=== PATIENT | female | born 1995 ===

== ENCOUNTER 2020-10-14 14:41 | Outpatient (REF) | payer SELFPAY ==
[2020-10-15 11:38] LABS: BV Int Neg Control Negative (Negative); BV Int Pos Control Positive (Positive)
[2020-10-20 15:09] LABS: CT PCR NOT DETECTED (Not Detect.); NG PCR NOT DETECTED (Not Detect.)
== END 2020-10-14 14:42 | disposition home or self-care (01) ==
LOC: HO.LAB 14:41
PROVIDERS: PCP Internal Medicine; Visit Provider Advanced Practice Midwife
DX: Z20.2 Contact with and (suspected) exposure to infections with a predominantly sexual mode of transmission (principal); E66.9 Obesity, unspecified
CPT/HCPCS: 87480; 87491; 87510; 87591; 87660; 99212

== ENCOUNTER 2020-10-14 16:25 | Outpatient (REF) | payer OTHER, SELFPAY ==
[2020-10-14 17:13] LABS: MANUAL DIFF FLAG NO
[2020-10-14 17:18] LABS: Basophils Absolute Auto 0.1 X10*3/uL (0.0-0.2); Basophils Percent Auto 0.9 % (0-2); Eosinophils Absolute Auto 0.4 X10*3/uL (0.0-0.4); Eosinophils Percent Auto 4.2 % (0-4); Hematocrit 38.3 % (37-47); Hemoglobin 12.3 g/dl (12.0-16.0); Imm Gran Abs Auto 0.02 X10*3/uL (0.00-0.03); Imm Gran Pct Auto 0.2 % (0.0-0.4); Lymphocytes Absolute Auto 3.6 X10*3/uL (1.2-4.9); Lymphocytes Percent Auto 39.4 % (20-40); Mean Corpuscular HGB Conc 32.1 g/dl (31.0-35.0); Mean Corpuscular Hemoglobin 29.4 pg (27.0-33.0); Mean Corpuscular Volume 91.6 fL (80-98); Mean Platelet Volume 9.8 fL (9.4-12.3); Monocytes Absolute Auto 0.6 X10*3/uL (0.1-1.2); Neutrophils Absolute Auto 4.4 X10*3/uL (2.0-8.3); Neutrophils Percent Auto 48.3 % (45-73); Platelet Count 327 X10*3/uL (160-400); Red Blood Count 4.18 X10*6/uL (4.20-5.50); Red Cell Distribution Width 13.3 % (11.0-16.0); White Blood Count 9.1 X10*3/uL (4.8-10.8)
[2020-10-14 18:04] LABS: Alanine Aminotransferase 12 U/L (0-31); Albumin Level 4.6 g/dL (3.5-5.0); Alkaline Phosphatase 87 U/L (39-117); Anion Gap 12 (12-20); Aspartate Amino Transferase 16 U/L (5-31); Bilirubin Total 0.3 mg/dL (0.0-1.0); Blood Urea Nitrogen 9 mg/dL (9-16); Calcium 9.3 mg/dL (8.4-10.2); Carbon Dioxide 26 mmol/L (22-29); Chloride 106 mmol/L (96-108); Cholesterol 225 mg/dL; Estimated Glomerular Filt Rate > 60; Glucose Fasting 73 mg/dL (60-99); HDL Cholesterol 42 mg/dL; LDL Cholesterol Calculated 169 mg/dl; Potassium 4.2 mmol/l (3.3-5.1); Sodium 140 mmol/L (135-145); Total Protein 7.5 g/dL (6.5-8.0); Triglycerides 73 mg/dL
[2020-10-14 18:17] LABS: TSH reflex Free T4 1.54 mIU/mL (0.32-4.0)
[2020-10-15 07:52] LABS: HBsAGNum1 0.22 S/CO (0.00-0.99); HIV AB/AG Nonreactive (Nonreactive); HIV Num 1 0.31 S/CO (0.00-0.99); Hepatitis B Surface Antigen Negative (Negative); ~HepC Num1 0.11 S/CO (0.00-0.79); ~Hepatitis C Antibody Nonreactive (Nonreactive)
[2020-10-15 09:03] LABS: Syphilis Screen Nonreactive (Nonreactive)
== END 2020-10-14 16:26 | disposition home or self-care (01) ==
LOC: HO.LAB 16:25
PROVIDERS: PCP Internal Medicine; Visit Provider Advanced Practice Midwife
DX: Z20.2 Contact with and (suspected) exposure to infections with a predominantly sexual mode of transmission (principal); E66.9 Obesity, unspecified
CPT/HCPCS: 36415; 80053; 80061; 84443; 85025; 86780; 86803; 87340; 87389

== ENCOUNTER → 2020-10-17 12:15 | Outpatient (BNVA) | payer OTHER, SELFPAY | PROVIDERS: PCP Internal Medicine; Visit Provider Advanced Practice Midwife | DX: Z76.89 Persons encountering health services in other specified circumstances (principal) ==

== ENCOUNTER 2020-11-12 15:14 | Outpatient (REF) | payer OTHER, SELFPAY | END 2020-11-12 15:15 | disposition home or self-care (01) | LOC: HO.LAB 15:14 | PROVIDERS: Visit Provider Internal Medicine | DX: Z20.828 Contact with and (suspected) exposure to other viral communicable diseases (principal) | CPT/HCPCS: C9803; U0003 ==

== ENCOUNTER 2020-11-27 10:04 | Outpatient (REF) | payer OTHER, SELFPAY | END 2020-11-27 10:05 | disposition home or self-care (01) | LOC: HO.LAB 10:04 | PROVIDERS: Visit Provider Internal Medicine | DX: Z20.822 Contact with and (suspected) exposure to COVID-19 (principal) | CPT/HCPCS: 36415; C9803; U0003 ==

== ENCOUNTER 2020-12-26 12:31 | Outpatient (REF) | payer OTHER, SELFPAY ==
[2020-12-26 16:30] LABS: MANUAL DIFF FLAG NO
[2020-12-26 16:33] LABS: Basophils Absolute Auto 0.1 X10*3/uL (0.0-0.2); Eosinophils Absolute Auto 0.2 X10*3/uL (0.0-0.4); Eosinophils Percent Auto 2.7 % (0-4); Hematocrit 41.8 % (37-47); Hemoglobin 13.6 g/dl (12.0-16.0); Imm Gran Abs Auto 0.01 X10*3/uL (0.00-0.03); Imm Gran Pct Auto 0.1 % (0.0-0.4); Lymphocytes Absolute Auto 2.8 X10*3/uL (1.2-4.9); Lymphocytes Percent Auto 36.4 % (20-40); Mean Corpuscular HGB Conc 32.5 g/dl (31.0-35.0); Mean Corpuscular Hemoglobin 29.7 pg (27.0-33.0); Mean Corpuscular Volume 91.3 fL (80-98); Mean Platelet Volume 11.1 fL (9.4-12.3); Monocytes Absolute Auto 0.5 X10*3/uL (0.1-1.2); Monocytes Percent Auto 6.6 % (2-11); Neutrophils Absolute Auto 4.1 X10*3/uL (2.0-8.3); Neutrophils Percent Auto 53.2 % (45-73); Platelet Count 363 X10*3/uL (160-400); Red Blood Count 4.58 X10*6/uL (4.20-5.50); Red Cell Distribution Width 13.4 % (11.0-16.0); White Blood Count 7.8 X10*3/uL (4.8-10.8)
[2020-12-26 17:17] LABS: Syphilis Screen Nonreactive (Nonreactive)
[2020-12-29 07:53] LABS: HIV AB/AG Nonreactive (Nonreactive); HIV Num 1 0.08 S/CO (0.00-0.99); ~Hepatitis B Surface Antibody NONREACTIVE (Nonreactive); ~Hepatitis C Antibody Nonreactive (Nonreactive)
[2020-12-31 19:52] LABS: HSV 1 IgM IFA Negative (Negative); HSV 2 IgM IFA Negative (Negative)
== END 2020-12-26 12:32 | disposition home or self-care (01) ==
LOC: HO.LAB 12:31
PROVIDERS: Internal Medicine; Absent Provider Hospitalist; PCP Internal Medicine; Visit Provider Internal Medicine
DX: Z00.00 Encounter for general adult medical examination without abnormal findings (principal); E03.9 Hypothyroidism, unspecified; Z20.828 Contact with and (suspected) exposure to other viral communicable diseases; Z20.822 Contact with and (suspected) exposure to COVID-19
CPT/HCPCS: 36415; 84443; 85025; 86695; 86696; 86706; 86780; 86803; 87389; C9803; U0003; U0005

== ENCOUNTER 2020-12-26 14:31 | Outpatient (REF) | payer OTHER, SELFPAY ==
[2020-12-26 16:08] LABS: CT PCR NOT DETECTED (Not Detect.); NG PCR NOT DETECTED (Not Detect.)
== END 2020-12-26 14:32 | disposition home or self-care (01) ==
LOC: HO.LNP 14:31
PROVIDERS: Visit Provider Hospitalist
DX: Z20.828 Contact with and (suspected) exposure to other viral communicable diseases (principal); E03.9 Hypothyroidism, unspecified
CPT/HCPCS: 87491; 87591

== ENCOUNTER 2020-12-30 08:07 | Outpatient (REF) | payer OTHER, SELFPAY | END 2020-12-30 08:08 | disposition home or self-care (01) | LOC: HO.LAB 08:07 | PROVIDERS: PCP Internal Medicine; Visit Provider Advanced Practice Midwife | DX: R30.0 Dysuria (principal); Z20.2 Contact with and (suspected) exposure to infections with a predominantly sexual mode of transmission | CPT/HCPCS: 99212 ==

== ENCOUNTER 2021-02-17 15:46 | Outpatient (REF) | payer OTHER, SELFPAY ==
[2021-02-18 09:20] LABS: SARS COV2 PCR INHOUSE NEGATIVE (Negative)
== END 2021-02-17 15:47 | disposition home or self-care (01) ==
LOC: HO.LAB 15:46
PROVIDERS: Visit Provider Internal Medicine
DX: Z20.822 Contact with and (suspected) exposure to COVID-19 (principal)
CPT/HCPCS: C9803; U0003

== ENCOUNTER 2021-03-09 14:58 | Outpatient (REF) | payer OTHER, SELFPAY ==
[2021-03-09 15:24] LABS: COVID-19 Test Negative (Negative)
== END 2021-03-09 14:59 | disposition home or self-care (01) ==
LOC: HO.LAB 14:58
PROVIDERS: Visit Provider Internal Medicine
DX: Z20.822 Contact with and (suspected) exposure to COVID-19 (principal)
CPT/HCPCS: 36415; 87635; C9803

== ENCOUNTER 2021-03-16 15:09 | Outpatient (REF) | payer OTHER, SELFPAY ==
[2021-03-16 17:19] LABS: Alanine Aminotransferase 18 U/L (0-31); Albumin Level 4.4 g/dL (3.5-5.0); Alkaline Phosphatase 62 U/L (39-117); Anion Gap 14 (12-20); Aspartate Amino Transferase 19 U/L (5-31); Bilirubin Total 0.4 mg/dL (0.0-1.0); Blood Urea Nitrogen 11 mg/dL (9-16); Calcium 9.7 mg/dL (8.4-10.2); Carbon Dioxide 24 mmol/L (22-29); Chloride 105 mmol/L (96-108); Cholesterol 240 mg/dL; Estimated Glomerular Filt Rate > 60; Glucose Fasting 114 mg/dL (60-99); HDL Cholesterol 44 mg/dL; LDL Cholesterol Calculated 148 mg/dl; Sodium 139 mmol/L (135-145); Total Protein 7.5 g/dL (6.5-8.0); Triglycerides 241 mg/dL
[2021-03-16 17:38] LABS: Thyroid Stimulating Hormone 1.09 uIU/mL (0.32-4.0)
[2021-03-17 06:11] LABS: CT PCR NOT DETECTED (Not Detect.); NG PCR NOT DETECTED (Not Detect.)
[2021-03-17 08:02] LABS: Prolactin 16.6 ng/mL
[2021-03-17 10:52] LABS: DHEA Sulfate 437 mcg/dL (18-391)
[2021-03-17 12:38] LABS: BV Int Neg Control Negative (Negative); BV Int Pos Control Positive (Positive)
[2021-03-20 22:21] LABS: Testosterone, Free 11.2 pg/mL (0.1-6.4); Testosterone, Total 51 ng/dL (2-45)
== END 2021-03-16 15:10 | disposition home or self-care (01) ==
LOC: HO.LAB 15:09
PROVIDERS: Internal Medicine; PCP Internal Medicine; Visit Provider Advanced Practice Midwife
DX: Z01.419 Encounter for gynecological examination (general) (routine) without abnormal findings (principal); R10.2 Pelvic and perineal pain; R63.5 Abnormal weight gain; N92.6 Irregular menstruation, unspecified; R30.0 Dysuria; E11.9 Type 2 diabetes mellitus without complications; Z20.2 Contact with and (suspected) exposure to infections with a predominantly sexual mode of transmission
CPT/HCPCS: 36415; 80053; 80061; 82627; 83498; 84146; 84402; 84403; 84443; 87086; 87147; 87480; 87491; 87510; 87591; 87660

== ENCOUNTER → 2021-03-20 14:21 | Outpatient (BNVA) | payer OTHER, SELFPAY | PROVIDERS: PCP Internal Medicine; Visit Provider Urology | DX: N39.0 Urinary tract infection, site not specified (principal); R31.9 Hematuria, unspecified | CPT/HCPCS: 81002; 99202 ==

== ENCOUNTER 2021-03-25 16:08 | Outpatient (REF) | payer OTHER, SELFPAY ==
--- NOTE | ~2021-03-25 | US_ITS ---
EXAMINATION: PELVIC ULTRASOUND CLINICAL INFORMATION: Irregular menstruation COMPARISON: None TECHNIQUE: Transabdominal and transvaginal pelvic ultrasound was performed. Transvaginal exam was performed for better visualization of the uterus and ovaries. FINDINGS: The uterus is anteverted and measures 7.5 x 3.3 x 3.9 cm in dimension. No focal uterine lesion is seen. Endometrial thickness is normal measuring 0.5 cm. There are nabothian cysts in the cervix. There is a small amount of fluid seen in the endocervical canal. The ovaries are normal in size. The right ovary measures 3.3 x 1.7 x 3.5 cm and the left ovary measures 2.7 x 1.5 x 2.3 cm. There are bilateral small simple ovarian cysts or follicles. There is a small amount of fluid in the pelvis. US/US pelvic and transvaginal IMPRESSION: Normal thickness endometrium.
== END 2021-03-25 16:09 | disposition home or self-care (01) ==
LOC: HO.US 16:08
PROVIDERS: Visit Provider Advanced Practice Midwife
DX: N92.6 Irregular menstruation, unspecified (principal)
CPT/HCPCS: 76830; 76856

== ENCOUNTER → 2021-04-02 11:32 | Outpatient (BNVA) | payer OTHER, SELFPAY | PROVIDERS: PCP Internal Medicine; Visit Provider Advanced Practice Midwife ==

== ENCOUNTER 2021-06-23 20:17 | Emergency (ER) | payer OTHER, SELFPAY ==
--- NOTE | ~2021-06-23 | US_ITS ---
EXAMINATION: US VENOUS ULTRASOUND WITH DOPPLER LOWER EXTREMITY, LEFT CLINICAL INFORMATION: Left thigh palpable mass. Evaluate for a deep vein thrombosis. COMPARISON: None TECHNIQUE: Ultrasound of the deep veins is performed from the hip to the calf with compression sonography and color and pulse Doppler assessment. Spectral analysis with color-flow imaging is performed. FINDINGS: There is normal venous compression and respiratory variation and augmented flow. The visualized common femoral vein, superficial femoral vein, profunda femoral vein, popliteal vein, and the trifurcation region shows no evidence of deep venous thrombosis. There is no significant popliteal fossa cyst. Within the mid/medial left thigh there is a heterogeneous area within the subcutaneous fat with areas of increased and decreased echogenicity. There is hypoechogenicity centrally. Findings are nonspecific and could represent a soft tissue contusion versus an infectious or inflammatory process. If the patient's symptoms persist, followup ultrasound in 5 days 7 days might be of value to exclude proximal propagation from a non-visualized calf vein. US/US venous duplex LE LT IMPRESSION: No DVT demonstrated in the left lower extremity. Within the mid/medial left thigh there is a heterogeneous area within the subcutaneous fat with central hypoechogenicity. Findings are nonspecific and could represent a soft tissue contusion versus an infectious or inflammatory process.
[2021-06-23 20:25] VITALS: BP 116/74; PULSE 80; RESP 20; TEMP 37.3; O2SAT 98; BMI 32.8
--- NOTE | 2021-06-23 22:31 | ED_ITS ---
HPI - General Adult General Chief complaint: Skin/Abscess/Foreign Body Stated complaint: bump leg Time Seen by Provider: 06/23/21 21:38 Source: patient Mode of arrival: ambulatory Limitations: no limitations History of Present Illness HPI narrative: Patient states pain in left inner thigh. Patient states of painful lump under skin in inner thigh. Patient denies any redness, fever, chills, ecchymosis, or any recent trauma to the area. Patient is not on any control pills. Patient denies any swelling of lower extremity or calf pain. Related Data Home Medications Medication Instructions Recorded Confirmed albuterol sulfate 90 mcg/actuation 2 puff INHALATION Q4-6H PRN 08/19/20 03/13/21 aerosol inhaler escitalopram oxalate 20 mg tablet 20 mg PO QAM 08/19/20 03/13/21 hydroxyzine HCl 10 mg tablet 10 mg PO TID 08/19/20 03/13/21 propranolol 10 mg tablet 10 mg PO BID 08/19/20 03/13/21 Previous Rx's Medication Instructions Recorded prednisone 20 mg tablet 20 mg PO .COMPLEX #18 tab 03/13/21 nitrofurantoin macrocrystal 50 mg 50 mg PO BEDTIME 90 Days #90 cap 03/20/21 capsule metronidazole 500 mg tablet 500 mg PO BID 7 Days #14 tab 04/14/21 (Flagyl) cephalexin 500 mg capsule 500 mg PO QID #28 cap 06/23/21 naproxen 500 mg tablet 500 mg PO BID PRN #20 tab 06/23/21 Allergies Allergy/AdvReac Type Severity Reaction Status Date / Time No Known Allergies Allergy Verified 06/23/21 20:29 Review of Systems Review of Systems: Yes all other systems are reviewed and are negative Constitutional: Constitutional: Reports as per HPI and Reports no additional constitutional complaints Eyes: Eyes: Reports as per HPI and Reports no additional eye complaints ENT: Reports system reviewed and no additional complaints, except as documented and Reports as per HPI Cardiovascular: Cardiovascular: Reports as per HPI Respiratory: Respiratory: Reports as per HPI and Reports no additional respiratory complaints Gastrointestinal: Gastrointestinal: Reports as per HPI and Reports no additional gastrointestinal complaints Musculoskeletal: Musculoskeletal: Reports no additional musculoskeletal complaints and Reports as per HPI Comments: Painful lump on thigh Neurologic: Reports system reviewed and no additional complaints, except as documented and Reports as per HPI Psychiatric: Psychiatric: Reports no additional psychiatric complaints and Reports as per HPI [facility] Past Medical History Medical History Depression with anxiety Mild asthma Obesity (BMI 30.0-34.9) Surgical History History of tooth extraction Family History Family History Father Cancer Seizures Mother Hypertension Kidney stones Paternal Grandmother Breast cancer Diabetes mellitus Paternal Grandfather Diabetes mellitus Maternal Aunt Hypertension Social History Social History Alcohol intake: current Alcohol intake frequency: holidays/special occasions only Advance Directives: No Advance Directives Information Provided: No Patient : No Gender identity: female Physical Exam Vital Signs: Vital Signs: Last Vital Signs Temp 99.2 F 06/23/21 20:25 Pulse 80 06/23/21 20:25 Resp 20 06/23/21 20:25 BP 116/74 06/23/21 20:25 Pulse Ox 98 06/23/21 20:25 Body Mass Index 32.8 Const: General: cooperative, healthy appearing, comfortable, no acute distress, well developed, alert and awake Orientation/consciousness: patient oriented x3 HENMT: Head: Yes normal to inspection, Yes No palpable skull fracture present, Yes normocephalic and Yes atraumatic Eyes: General: appearance normal, both eyes and all related structures Neck: Neck: Yes normal visual inspection, Yes full ROM, Yes no lymphadenopathy, Yes no meningeal signs, Yes trachea midline, Yes supple and No tender Chest: Chest palpation & inspection: normal inspection of the chest and normal palpation of entire chest wall Resp: Effort & Inspection: normal respiratory effort and able to speak in complete sentences Auscultation: clear to auscultation bilaterally Cardio: Jugular venous distension: no JVD Heart sounds: S1 normal heart sound present and S2 normal heart sound present GI: Inspection: Yes normal to inspection and No abdominal wall ecchymosis Palpation (GI): Soft to palpation, not firm, nontender, no guarding and not rigid : General: No CVA tenderness and Yes no CVA tenderness Back/Spine/Pelvis: Back: no CVA tenderness, No CVA tenderness and No back tenderness Skin: General skin exam: no rashes or lesions noted and elasticity normal Neuro: General: patient oriented x3, gait normal, tone normal, no meningeal signs and CN's II-XI intact bilaterally Cranial nerves: Yes CN's II-XII intact bilaterally Extrem: General: Yes normal to inspection and Yes full ROM Knee images: 1. Positive for area of tenderness on palpation. Negative for any fluctuance, erythema, pus discharge, or foul odor. Negative for ecchymosis or crepitus. Motor/neuro/vascular exam intact. Psych: Appearance: grossly normal, well kempt and not disheveled Course Course Course Narrative: Bedside ultrasound does not show any collection of pus on that area of skin. Area of skin negative for any erythema to indicate cellulitis. Will send patient for official ultrasound to make sure there is no DVT. Reevaluation(s) Reevaluation #1: Ultrasound negative for blood clot. Ultrasound states area of pain may be contusion versus inflammatory/infectious process. This may be early abscess although no erythema. Not suspect any fracture due to no ecchymosis in the area to indicate trauma. Will discharge with Keflex. Time: 22:46 Medical Decision Making MDM Narrative Medical decision making narrative: Painful lump Discharge Plan Discharge Clinical Impression: Abscess of skin or subcutaneous tissue Patient Disposition: Home, Self-Care Instructions: Abscess (ED) Additional Instructions: Recommend warm compress 4 times a day for 15 minutes on area of pain. You will be discharged with antibiotics. Return to ED for worsening pain, redness, swelling, calf pain, leg swelling, red streaks, fever, chills, chest pain, shortness of breath, or any other concerning symptoms. Please follow-up with PCP Prescriptions: New cephalexin 500 mg capsule 500 mg PO QID Qty: 28 RF: 0 naproxen 500 mg tablet 500 mg PO BID PRN (Reason: pain) Qty: 20 RF: 0 No Action metronidazole [Flagyl] 500 mg tablet 500 mg PO BID 7 Days Qty: 14 RF: 0 escitalopram oxalate 20 mg tablet 20 mg PO QAM RF: 0 hydroxyzine HCl 10 mg tablet 10 mg PO TID RF: 0 propranolol 10 mg tablet 10 mg PO BID RF: 0 albuterol sulfate 90 mcg/actuation HFA aerosol inhaler 2 puff inhalation Q4-6H PRNRF: 0 prednisone 20 mg tablet 20 mg PO .COMPLEX Qty: 18 RF: 0 nitrofurantoin macrocrystal 50 mg capsule 50 mg PO BEDTIME 90 Days Qty: 90 RF: 0 Print Language: Mohawk
== END 2021-06-23 23:11 | disposition home or self-care (01) ==
PROVIDERS: Emergency Provider Internal Medicine
DX: L02.416 Cutaneous abscess of left lower limb (principal); M79.652 Pain in left thigh
CPT/HCPCS: 93971; 99283; 99284

== ENCOUNTER → 2021-06-25 10:07 | Outpatient (BNVA) | payer OTHER, SELFPAY | PROVIDERS: PCP Internal Medicine; Visit Provider Internal Medicine | DX: R79.89 Other specified abnormal findings of blood chemistry (principal); E55.9 Vitamin D deficiency, unspecified | CPT/HCPCS: 99202 ==

== ENCOUNTER 2021-07-06 10:53 | Outpatient (REF) | payer OTHER, SELFPAY ==
[2021-07-06 12:23] LABS: Glucose Fasting 88 mg/dL (60-99)
[2021-07-06 12:33] LABS: Alanine Aminotransferase 19 U/L (0-31); Albumin Level 4.3 g/dL (3.5-5.0); Alkaline Phosphatase 56 U/L (39-117); Anion Gap 10 (12-20); Aspartate Amino Transferase 20 U/L (5-31); Bilirubin Total 0.3 mg/dL (0.0-1.0); Blood Urea Nitrogen 6 mg/dL (9-16); Calcium 8.9 mg/dL (8.4-10.2); Carbon Dioxide 25 mmol/L (22-29); Chloride 106 mmol/L (96-108); Cholesterol 184 mg/dL; Estimated Glomerular Filt Rate > 60; Glucose Random 88 mg/dL (60-115); HDL Cholesterol 40 mg/dL; LDL Cholesterol Calculated 132 mg/dl; Potassium 4.4 mmol/L (3.3-5.1); Sodium 137 mmol/L (135-145); Total Protein 7.2 g/dL (6.5-8.0); Triglycerides 64 mg/dL
[2021-07-06 12:44] LABS: Free T4 (Free Thyroxine) 0.82 ng/dL (0.71-1.85); HCG Quantitative < 2 mIU/mL; Vitamin D 25-OH Total 19.4 ng/mL (>30)
[2021-07-06 14:28] LABS: Estimated Average Glucose 105 mg/dL; Hemoglobin A1c % 5.3 %
[2021-07-06 14:32] LABS: Glucose 2 Hour 96 mg/dL
[2021-07-06 14:32] LABS: Glucose 1 Hour 101 mg/dL
[2021-07-08 06:06] LABS: LDL Cholesterol Direct 141 mg/dL (<100)
[2021-07-08 06:11] LABS: DHEA Sulfate 354 mcg/dL (18-391); Sex Hormone Binding Globulin 18 nmol/L (17-124)
[2021-07-08 20:41] LABS: Follicle Stimulating Hormone 3.9 mIU/mL; Lutenizing Hormone 1.9 mIU/mL; Prolactin 21.7 ng/mL
[2021-07-09 17:36] LABS: Estradiol Ultra Sensitive 75 pg/mL
[2021-07-10 00:02] LABS: Androstenedione 141 ng/dL
[2021-07-10 21:07] LABS: Testosterone, Free 7.5 pg/mL (0.1-6.4); Testosterone, Total 39 ng/dL (2-45)
[2021-07-16 20:51] LABS: Estradiol Free 2.15 pg/mL; Estradiol, Ultrasensitive 71 pg/mL
== END 2021-07-06 10:54 | disposition home or self-care (01) ==
LOC: HO.LAB 10:53
PROVIDERS: PCP Internal Medicine; Visit Provider Internal Medicine
DX: R79.89 Other specified abnormal findings of blood chemistry (principal); E55.9 Vitamin D deficiency, unspecified
CPT/HCPCS: 36415; 80053; 80061; 82157; 82306; 82627; 82670; 82681; 83001; 83002; 83036; 83498; 83721; 84146; 84270; 84402; 84403; 84439; 84443; 84702

== ENCOUNTER 2021-07-10 07:16 | Outpatient (REF) | payer OTHER, SELFPAY ==
[2021-07-13 22:37] LABS: Adrenocorticotropic Hormone 26 pg/mL (6-50)
== END 2021-07-10 07:17 | disposition home or self-care (01) ==
LOC: HO.LAB 07:16
PROVIDERS: PCP Internal Medicine; Visit Provider Internal Medicine
DX: R79.89 Other specified abnormal findings of blood chemistry (principal)
CPT/HCPCS: 36415; 82024; 82533

== ENCOUNTER 2021-07-16 15:22 | Outpatient (REF) | payer OTHER, SELFPAY ==
--- NOTE | ~2021-07-16 | CT_ITS ---
EXAMINATION: CT ABDOMEN WITHOUT AND WITH CONTRAST CLINICAL INFORMATION: Abnormal liver chemistries findings COMPARISON: None TECHNIQUE: Contiguous axial thin section helical images of the abdomen were performed before and after the administration of oral contrast and 85 mL of Omnipaque 350 intravenous contrast. The data set was reformatted in the coronal and sagittal planes and reviewed on an independent workstation. This CT examination was performed using dose optimization techniques as appropriate, variously including the following: *Automated exposure control *Adjustment of mA and/or kV according to patient size (this includes techniques or standardized protocols for targeted exams where dose is matched to indication/reason for exam; i.e. extremities or head) *Use of iterative reconstruction technique DLP: 1556 mGy-cm FINDINGS: LUNG BASES: Unremarkable LIVER, GALLBLADDER, AND BILIARY TREE: Unremarkable PANCREAS: Unremarkable SPLEEN: Unremarkable ADRENAL GLANDS AND KIDNEYS: The adrenal glands are normal. No adrenal nodule is seen. There is a 1.5 cm cyst in the lower pole of the left kidney. The kidneys are otherwise unremarkable. BOWEL LOOPS: Unremarkable LYMPH NODES: Unremarkable VASCULAR: Unremarkable. Abdominal wall: There is diastasis of the rectus muscles and small umbilical hernia containing fat. BONES: Unremarkable CT/CT abdomen wo/w con IMPRESSION: Normal-appearing adrenal glands. No nodule seen. Small left renal cyst.
[2021-07-16] MEDS: iohexoL 350 MG/ML 100 ML INFUS..BTL IV (16:07)
== END 2021-07-16 15:23 | disposition home or self-care (01) ==
LOC: HO.CT 15:22
PROVIDERS: PCP Internal Medicine; Visit Provider Internal Medicine
DX: R79.89 Other specified abnormal findings of blood chemistry (principal)
CPT/HCPCS: 74170; Q9967

== ENCOUNTER 2021-07-21 07:38 | Outpatient (REF) | payer OTHER, SELFPAY ==
[2021-07-23 17:07] LABS: Adrenocorticotropic Hormone 9 pg/mL (6-50)
[2021-07-28 22:42] LABS: Dexamethasone 356 ng/dL
== END 2021-07-21 07:39 | disposition home or self-care (01) ==
LOC: HO.LAB 07:38
PROVIDERS: PCP Internal Medicine; Visit Provider Internal Medicine
DX: R79.89 Other specified abnormal findings of blood chemistry (principal)
CPT/HCPCS: 36415; 80299; 82024; 82533

== ENCOUNTER 2021-07-29 19:48 | Emergency (ER) | payer OTHER, SELFPAY ==
[2021-07-29 21:44] VITALS: BP 118/82; PULSE 64; RESP 18; TEMP 36.7; O2SAT 99; BMI 32.5
--- NOTE | 2021-07-29 22:57 | ED.FALL ---
HPI - Fall General Chief Complaint: Fall Stated Complaint: fall Time Seen by Provider: 07/29/21 22:15 Source: patient Mode of arrival: ambulatory Limitations: no limitations History of Present Illness HPI Narrative: 25 y/o female presenting for evaluation of headache, right sided neck pain and left shoulder pain after she slipped on oil and fell onto hardwood floor yesterday. She fell back onto her left side and hit her head. No LOC. Not on anticoagulation. 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 She had muscle pains in her right side of her neck, worse with movement and lifting. She had a hard time focusing and a frontal headache. She has not taken any medications for the pain. No weakness, numbness, tingling, N/V, vision changes. MD complaint: fall Onset (ago): day(s) (1) Fall from: standing Fall witnessed: no Place fall occurred: home Loss of consciousness: none Prolonged down time: no Symptoms prior to fall: none Context: tripped/slipped Location of injury: head and neck Location of injury - extremities: left: shoulder Severity: moderate Severity scale (1-10): 5 Quality: aching and spasming Associated symptoms (after fall): headache and neck pain Related Data Home Medications Medication Instructions Recorded Confirmed escitalopram oxalate 20 mg tablet 20 mg PO QAM 08/19/20 06/25/21 hydroxyzine HCl 10 mg tablet 10 mg PO TID 08/19/20 06/25/21 propranolol 10 mg tablet 10 mg PO BID 08/19/20 06/25/21 Previous Rx's Medication Instructions Recorded nitrofurantoin macrocrystal 50 mg 50 mg PO BEDTIME 90 Days #90 cap 03/20/21 capsule dexamethasone 1 mg tablet 1 mg PO DAILY #1 tab 07/15/21 cyclobenzaprine 10 mg tablet 10 mg PO TID PRN #10 tab 07/29/21 ibuprofen 600 mg tablet 600 mg PO Q8H PRN #20 tab 07/29/21 lidocaine 5 % topical patch 1 patch TOPICAL DAILY #15 ea 07/29/21 (Lidoderm) Allergies Allergy/AdvReac Type Severity Reaction Status Date / Time No Known Allergies Allergy Verified 07/29/21 21:44 Review of Systems Review of Systems: Constitutional: No Fever, No Chills ENT/Mouth: No sore throat, No Rhinorrhea, No Swallowing Difficulty Cardiovascular: No Chest Pain, No SOB Respiratory: No Cough, No Sputum Gastrointestinal: No Nausea, No Vomiting, No Diarrhea, No abdominal Pain Genitourinary: No Hematuria Musculoskeletal: No joint pain, + Myalgias Skin: No Skin Lesions, No rash Neuro: No Weakness, No Numbness, No Dizziness, + Headache Heme/Lymph: No Bruising PMFSH Past Medical History Medical History (Updated 07/29/21 @ 22:59 by FRANSISCO Connelly) Depression with anxiety Mild asthma Obesity (BMI 30.0-34.9) Renal mass, left Vitamin D deficiency Surgical History History of tooth extraction Family History Family History Father Cancer Seizures Mother Hypertension Kidney stones Paternal Grandmother Breast cancer Diabetes mellitus Paternal Grandfather Diabetes mellitus Maternal Aunt Hypertension Social History Social History Alcohol intake: current Alcohol intake frequency: holidays/special occasions only Patient Tobacco Use Status: Never used Tobacco Advance Directives: No Advance Directives Information Provided: No Patient : No Gender identity: Female Physical Exam Vital Signs: Vital Signs: Last Vital Signs Temp 98.1 F 07/29/21 21:44 Pulse 64 07/29/21 21:44 Resp 18 07/29/21 21:44 BP 118/82 07/29/21 21:44 Pulse Ox 99 07/29/21 21:44 Body Mass Index 32.5 Appearance: Alert. Oriented X3. No acute distress. Head: normocephalic, atraumatic, no palpable skull fracture Eyes: Pupils equal, round and reactive to light. EOMI, no nystagmus ENT: Pharynx normal. No dental trauma. Neck: Normal inspection. Neck supple. No cervical spinal tenderness. right sided soft tissue tenderness with palpable spasm. CVS: Normal heart rate and rhythm. Pulses normal. Respiratory: No respiratory distress. Breath sounds normal. Abdomen: Soft and nontender. +BS x4 Skin: Skin warm and dry. Normal skin color. Normal skin turgor. No rashes. Extremities: No lower extremity edema. Left shoulder normal inspection, palpation and ROM both passive and active. NV intact distally. Neuro: Oriented X 3. No motor deficit. No sensory deficit. Course Course Course Narrative: 25 y/o female presents to the ER for evaluation of right sided neck pain, left shoulder pain and generalized headache s/p slip and fall yesterday with head strike. no LOC. Her exam is consistent with muscle strain and spasm. No cervical spinal tenderness. Doubt ICH or skull fracture. We discussed role of CT and low clinical suspicion for serious intracranial injury. Will start conservative treatment with NSAID, muscle relaxer, lidoderm and outpatient follow up. Patient and mom agree with plan. Critical Care Time Critical Care Time Critical Care Time: No Discharge Plan Discharge Clinical Impression: Cervical muscle strain Qualifiers: Encounter type: initial encounter Qualified Code(s): S16.1XXA - Strain of muscle, fascia and tendon at neck level, initial encounter Mild concussion Qualifiers: Encounter type: initial encounter Loss of consciousness presence/duration: without LOC Qualified Code(s): S06.0X0A - Concussion without loss of consciousness, initial encounter Patient Disposition: Home, Self-Care Instructions: Cervical Strain (ED), Concussion (ED) Additional Instructions: Your injuries are most likely due to muscle strain and spasm from your fall. You also may have a very mild concussion. Recommend rest, both mental and physical. No bending, lifting or twisting. Use ice several times per day for 20 minutes at a time for the next 48 hours and then change to heat. Take medications as prescribed to help with pain and discomfort. Follow up with your Primary Care Doctor this week. If your pain worsens, if you develop new numbness, tingling, weakness, severe headache, profuse vomiting, lethargy or any other concerning symptoms 911 or come back to the ER right away for evaluation. Prescriptions: New cyclobenzaprine 10 mg tablet 10 mg PO TID PRN (Reason: muscle spasm) Qty: 10 RF: 0 lidocaine [Lidoderm] 5 % adhesive patch,medicated 1 patch topical DAILY Qty: 15 RF: 0 ibuprofen 600 mg tablet 600 mg PO Q8H PRN (Reason: pain) Qty: 20 RF: 0 No Action dexamethasone 1 mg tablet 1 mg PO DAILY Qty: 1 RF: 0 escitalopram oxalate 20 mg tablet 20 mg PO QAM RF: 0 hydroxyzine HCl 10 mg tablet 10 mg PO TID RF: 0 propranolol 10 mg tablet 10 mg PO BID RF: 0 nitrofurantoin macrocrystal 50 mg capsule 50 mg PO BEDTIME 90 Days Qty: 90 RF: 0 Referrals: Maria Alejandra Broussard MD [Primary Care Provider] - 1 week Stand Alone Forms: Work/School Release
[2021-07-29] MEDS: Ibuprofen 600 MG TABLET PO (23:13)
[2021-07-29] MEDS: Cyclobenzaprine HCl 10 MG TABLET PO (23:13)
[2021-07-29] MEDS: Lidocaine 4 % Patch ADH..PATCH 1 PATCH TRANSDERMA (23:14)
== END 2021-07-29 23:23 | disposition home or self-care (01) ==
PROVIDERS: Emergency Provider Internal Medicine; PCP Internal Medicine
DX: S16.1XXA Strain of muscle, fascia and tendon at neck level, initial encounter (principal); S06.0X0A Concussion without loss of consciousness, initial encounter; M54.2 Cervicalgia; G44.309 Post-traumatic headache, unspecified, not intractable; W01.0XXA Fall on same level from slipping, tripping and stumbling without subsequent striking against object, initial encounter; Y93.9 Activity, unspecified; Y92.9 Unspecified place or not applicable; Y99.9 Unspecified external cause status; Z79.899 Other long term (current) drug therapy
CPT/HCPCS: 99283; 99284

== ENCOUNTER 2021-08-17 14:31 | Emergency (ER) | payer OTHER, SELFPAY ==
--- NOTE | ~2021-08-17 | US_ITS ---
EXAMINATION: US OBSTETRICAL ULTRASOUND CLINICAL INFORMATION: Pelvic pain. Beta hCG level 203 COMPARISON: CT scan abdomen pelvis July 16, 2021. LMP: 06/23/2021. Gestational age by LMP 7 weeks 6 days. CLARA 03/30/2022. TECHNIQUE: Grayscale transabdominal and transvaginal scanning. Color Doppler exam was used. FINDINGS: UTERUS: There is no intrauterine gestational sac. Endometrial thickness 1 cm. No fluid in the endometrial cavity. Uterus is unremarkable. ADNEXA: Ovarian vascularity:Doppler demonstrates both arterial and venous vascular flow in the right and left ovary. No evidence of ovarian torsion. Multiple small follicles seen in the ovaries bilaterally. No evidence of corpus luteum cyst. Right Ovary: 4 x 2 x 2.8 cm Left Ovary: 3 x 2 x 2.4 cm Cul-de-sac: No Fluid US/US OB pelvic and transvaginal IMPRESSION: No intrauterine gestational sac. This may be due to early gestation. ( Beta-hCG level 203). Ectopic cannot be excluded. There is no abnormality of the pelvis. Recommend follow-up ultrasound in 1-3 weeks with serial beta-hCG levels. This critical result was discussed with Dr. Irwin on 08/17/2021, 10:20 PM and it was ascertained that the content and urgency of the report was understood at the time of direct communication.
[2021-08-17 15:05] VITALS: BP 130/83; PULSE 103; RESP 16; TEMP 36.9; O2SAT 100; BMI 32.5
[2021-08-17 16:21] LABS: MANUAL DIFF FLAG NO
[2021-08-17 16:23] LABS: Basophils Absolute Auto 0.1 X10*3/uL (0.0-0.2); Basophils Percent Auto 0.6 % (0-2); Eosinophils Absolute Auto 0.2 X10*3/uL (0.0-0.4); Eosinophils Percent Auto 1.5 % (0-4); Hematocrit 37.7 % (37-47); Hemoglobin 12.5 g/dl (12.0-16.0); Imm Gran Abs Auto 0.04 X10*3/uL (0.00-0.03); Imm Gran Pct Auto 0.3 % (0.0-0.4); Lymphocytes Absolute Auto 3.4 X10*3/uL (1.2-4.9); Lymphocytes Percent Auto 29.3 % (20-40); Mean Corpuscular HGB Conc 33.2 g/dl (31.0-35.0); Mean Corpuscular Hemoglobin 29.3 pg (27.0-33.0); Mean Corpuscular Volume 88.5 fL (80-98); Mean Platelet Volume 9.5 fL (9.4-12.3); Monocytes Absolute Auto 0.8 X10*3/uL (0.1-1.2); Monocytes Percent Auto 6.6 % (2-11); Neutrophils Absolute Auto 7.2 X10*3/uL (2.0-8.3); Neutrophils Percent Auto 61.7 % (45-73); Platelet Count 341 X10*3/uL (160-400); Red Blood Count 4.26 X10*6/uL (4.20-5.50); Red Cell Distribution Width 13.1 % (11.0-16.0); White Blood Count 11.7 X10*3/uL (4.8-10.8)
[2021-08-17 16:30] LABS: Appearance Urine CLOUDY; Color Urine YELLOW; Glucose Urine UA NEG (NEG); Leukocyte Esterase Urine NEG (NEG); Nitrite Urine NEG (NEG); Urine Blood NEG (NEG); Urine Ketones NEG (NEG); Urine Protein NEG (NEG-TRACE)
[2021-08-17 16:39] LABS: Alanine Aminotransferase 18 U/L (0-31); Albumin Level 4.7 g/dL (3.5-5.0); Alkaline Phosphatase 64 U/L (39-117); Anion Gap 12 (12-20); Aspartate Amino Transferase 18 U/L (5-31); Bilirubin Direct < 0.2 mg/dL (0.0-0.5); Bilirubin Total 0.2 mg/dL (0.0-1.0); Blood Urea Nitrogen 9 mg/dL (9-16); Calcium 9.4 mg/dL (8.4-10.2); Carbon Dioxide 25 mmol/L (22-29); Chloride 106 mmol/L (96-108); Creatinine Clr Calc Pharmacy 111.7; Estimated Glomerular Filt Rate > 60; Glucose Random 89 mg/dL (60-115); Lipase 32 U/L (8-78); Potassium 3.5 mmol/L (3.3-5.1); Sodium 139 mmol/L (135-145); Total Protein 7.9 g/dL (6.5-8.0)
--- NOTE | 2021-08-17 19:16 | ED.ABDPAIN ---
HPI - Abdominal Pain General Chief Complaint: Abdominal Pain Stated Complaint: nausea, pelvic pain Time Seen by Provider: 08/17/21 19:15 Source: patient Mode of arrival: ambulatory Limitations: no limitations History of Present Illness HPI narrative: Patient history of polycystic ovarian disease last menstrual cycle was in 05/04 with history of irregular periods tested 2 times for negative at home complaining of intermittent sharp lower abdominal pain with breast tenderness no nausea no vomiting talk to her primary care doctor was about to go to hospital no vaginal bleeding no vomiting no fever no urinary complaints Related Data Home Medications Medication Instructions Recorded Confirmed escitalopram oxalate 20 mg tablet 20 mg PO QAM 08/19/20 06/25/21 hydroxyzine HCl 10 mg tablet 10 mg PO TID 08/19/20 06/25/21 propranolol 10 mg tablet 10 mg PO BID 08/19/20 06/25/21 Previous Rx's Medication Instructions Recorded nitrofurantoin macrocrystal 50 mg 50 mg PO BEDTIME 90 Days #90 cap 03/20/21 capsule dexamethasone 1 mg tablet 1 mg PO DAILY #1 tab 07/15/21 cyclobenzaprine 10 mg tablet 10 mg PO TID PRN #10 tab 07/29/21 ibuprofen 600 mg tablet 600 mg PO Q8H PRN #20 tab 07/29/21 lidocaine 5 % topical patch 1 patch TOPICAL DAILY #15 ea 07/29/21 (Lidoderm) Allergies Allergy/AdvReac Type Severity Reaction Status Date / Time No Known Allergies Allergy Verified 07/29/21 21:44 Review of Systems Review of Systems Yes all other systems are reviewed and are negative Physical Exam Vital Signs: Vital Signs: Last Vital Signs Temp 98.5 F 08/17/21 15:05 Pulse 103 H 08/17/21 15:05 Resp 16 08/17/21 15:05 BP 130/83 08/17/21 15:05 Pulse Ox 100 08/17/21 15:05 Body Mass Index 32.5 Appearance: Alert. Oriented X3. No acute distress. Eyes: No pallor or icterus ENT: Pharynx normal. Oral Mucosa moist Neck: Normal inspection. Neck supple. CVS: Normal heart rate and rhythm. Pulses normal. Respiratory: No respiratory distress. Equal air entry bilateral, no wheezing/rales/rhonchi Abdomen: Soft and nontender. No significant pelvic tenderness Bowel sounds are present, no mass palpable, no CVA tenderness Skin: Skin warm and dry. Normal skin color. Normal skin turgor. Extremities: No lower extremity edema. No calf tenderness Neuro: Oriented X 3. MDM - Abdominal Pain MDM Narrative Medical decision making narrative: Patient with very early possible no deep tenderness in the lower abdomen area no vaginal bleeding ultrasound showed no IUP. Patient advised to follow-up with OBG unless pt has significant pain in lower abdomen to come to the ER Lab Data Attestation: I reviewed the patient's lab results. Result diagrams: 08/17/21 16:14 08/17/21 16:14 Labs: Lab Results 08/17/21 08/17/21 08/17/21 Range/Units 16:14 16:14 16:15 WBC 11.7 H (4.8-10.8) X10*3/uL RBC 4.26 (4.20-5.50) X10*6/uL Hgb 12.5 (12.0-16.0) g/dl Hct 37.7 (37-47) % MCV 88.5 (80-98) fL MCH 29.3 (27.0-33.0) pg MCHC 33.2 (31.0-35.0) g/dl RDW 13.1 (11.0-16.0) % Plt Count 341 (160-400) X10*3/uL MPV 9.5 (9.4-12.3) fL Immature Gran % (Auto) 0.3 (0.0-0.4) % Neut % (Auto) 61.7 (45-73) % Lymph % (Auto) 29.3 (20-40) % Stephenson % (Auto) 6.6 (2-11) % Eos % (Auto) 1.5 (0-4) % Baso % (Auto) 0.6 (0-2) % Lymph # (Auto) 3.4 (1.2-4.9) X10*3/uL Stephenson # (Auto) 0.8 (0.1-1.2) X10*3/uL Eos # (Auto) 0.2 (0.0-0.4) X10*3/uL Baso # (Auto) 0.1 (0.0-0.2) X10*3/uL Abs Immat Gran (auto) 0.04 H (0.00-0.03) X10*3/uL Absolute Neuts (auto) 7.2 (2.0-8.3) X10*3/uL Absolute Nucleated RBC 0.000 (0.0-0.012) X10*3/uL Nucleated RBC % (auto) 0.0 (0.0-0.2) /100WBC Sodium 139 (135-145) mmol/L Potassium 3.5 D (3.3-5.1) mmol/L Chloride 106 (96-108) mmol/L Carbon Dioxide 25 (22-29) mmol/L Anion Gap 12 (12-20) BUN 9 (9-16) mg/dL Creatinine 0.70 (0.5-1.4) mg/dL Estim Creat Clear Calc 111.7 Estimated GFR > 60 Random Glucose 89 (60-115) mg/dL Calcium 9.4 (8.4-10.2) mg/dL Total Bilirubin 0.2 (0.0-1.0) mg/dL Direct Bilirubin < 0.2 (0.0-0.5) mg/dL AST 18 (5-31) U/L ALT 18 (0-31) U/L Alkaline Phosphatase 64 (39-117) U/L Total Protein 7.9 (6.5-8.0) g/dL Albumin 4.7 (3.5-5.0) g/dL Lipase 32 (8-78) U/L Beta HCG, Quant 203 mIU/mL Urine Color YELLOW Urine Appearance CLOUDY Urine pH 7.0 (5.0-8.0) Ur Specific [place] 1.010 (1.005-1.025) Urine Protein NEG (NEG-TRACE) MG/DL Urine Glucose (UA) NEG (NEG) MG/DL Urine Ketones NEG (NEG) MG/DL Urine Blood NEG (NEG) Urine Nitrite NEG (NEG) Ur Leukocyte Esterase NEG (NEG) Discharge Plan Discharge Clinical Impression: Early stage of Patient Disposition: Home, Self-Care Instructions: (ED) Additional Instructions: you possibly have 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 Report to the ER if increased lower abdominal pain/vaginal bleeding Prescriptions: No Action dexamethasone 1 mg tablet 1 mg PO DAILY Qty: 1 RF: 0 cyclobenzaprine 10 mg tablet 10 mg PO TID PRN (Reason: muscle spasm) Qty: 10 RF: 0 lidocaine [Lidoderm] 5 % adhesive patch,medicated 1 patch topical DAILY Qty: 15 RF: 0 ibuprofen 600 mg tablet 600 mg PO Q8H PRN (Reason: pain) Qty: 20 RF: 0 escitalopram oxalate 20 mg tablet 20 mg PO QAM RF: 0 hydroxyzine HCl 10 mg tablet 10 mg PO TID RF: 0 propranolol 10 mg tablet 10 mg PO BID RF: 0 nitrofurantoin macrocrystal 50 mg capsule 50 mg PO BEDTIME 90 Days Qty: 90 RF: 0 Referrals: Marquis Shah MD [Physician] - 2 days PMFSH Past Medical History Medical History Depression with anxiety Mild asthma Obesity (BMI 30.0-34.9) Renal mass, left Vitamin D deficiency Surgical History History of tooth extraction Family History Family History Father Cancer Seizures Mother Hypertension Kidney stones Paternal Grandmother Breast cancer Diabetes mellitus Paternal Grandfather Diabetes mellitus Maternal Aunt Hypertension Social History Social History Alcohol intake: current Alcohol intake frequency: holidays/special occasions only Patient Tobacco Use Status: Never used Tobacco Advance Directives: No Advance Directives Information Provided: No Gender identity: Female
[2021-08-17 19:40] LABS: HCG Quantitative 203 mIU/mL
== END 2021-08-17 22:31 | disposition home or self-care (01) ==
PROVIDERS: Emergency Provider Internal Medicine; PCP Internal Medicine
DX: O26.91 Pregnancy related conditions, unspecified, first trimester (principal); Z3A.00 Weeks of gestation of pregnancy not specified; Z79.899 Other long term (current) drug therapy
CPT/HCPCS: 36415; 76801; 76817; 80048; 80076; 81003; 83690; 84702; 85025; 99283; 99284

== ENCOUNTER 2021-08-18 13:12 | Outpatient (REF) | payer OTHER, SELFPAY ==
[2021-08-19 09:22] LABS: CT PCR NOT DETECTED (Not Detect.); NG PCR NOT DETECTED (Not Detect.)
== END 2021-08-18 13:13 | disposition home or self-care (01) ==
LOC: HO.LAB 13:12
PROVIDERS: PCP Internal Medicine; Visit Provider Obstetrics & Gynecology
DX: O26.899 Other specified pregnancy related conditions, unspecified trimester (principal); R10.2 Pelvic and perineal pain
CPT/HCPCS: 87491; 87591; 99202

== ENCOUNTER 2021-08-19 12:54 | Outpatient (REF) | payer OTHER, SELFPAY ==
[2021-08-19 14:01] LABS: HCG Quantitative 457 mIU/mL
== END 2021-08-19 12:55 | disposition home or self-care (01) ==
LOC: HO.LAB 12:54
PROVIDERS: PCP Internal Medicine; Visit Provider Obstetrics & Gynecology
DX: Z34.90 Encounter for supervision of normal pregnancy, unspecified, unspecified trimester (principal)
CPT/HCPCS: 36415; 84702

== ENCOUNTER 2021-08-25 13:17 | Outpatient (REF) | payer OTHER, SELFPAY ==
[2021-08-25 14:54] LABS: HCG Quantitative 3988 mIU/mL
== END 2021-08-25 13:18 | disposition home or self-care (01) ==
LOC: HO.LAB 13:17
PROVIDERS: PCP Internal Medicine; Visit Provider Obstetrics & Gynecology
DX: Z34.90 Encounter for supervision of normal pregnancy, unspecified, unspecified trimester (principal)
CPT/HCPCS: 36415; 84702

== ENCOUNTER 2021-08-25 15:58 | Outpatient (REF) | payer OTHER, SELFPAY ==
--- NOTE | ~2021-08-25 | US_ITS ---
EXAMINATION: US OBSTETRICAL ULTRASOUND CLINICAL INFORMATION: Encounter for supervision abnormal COMPARISON: Previous exam 08/17/2021. LMP: 06/23/2021 Gestational age by maternal dates is 7 weeks 6 days. Estimated date of delivery by maternal dates is 03/30/2022. TECHNIQUE: Transverse abdominal and transvaginal first trimester OB ultrasound FINDINGS: There is an intrauterine gestational sac. Mean sac diameter measures 0.58 cm which would suggest gestational age of 5 weeks 1 day. This is behind date from LMP given on 08/17/2021 exam. No pole or yolk sac is seen. The ovaries are normal. The right ovary measures 3.6 x 2 x 2.7 cm and the left ovary measures 2.9 x 1.6 x 3.7 cm. There is no fluid in the pelvis. US/US OB <= 14 weeks fetus IMPRESSION: Intrauterine gestational sac. Mean sac diameter suggests gestational age of 5 weeks 1 day. This is behind date of LMP given on 08/17/2021 exam.
== END 2021-08-25 15:59 | disposition home or self-care (01) ==
LOC: HO.US 15:58
PROVIDERS: PCP Internal Medicine; Visit Provider Obstetrics & Gynecology
DX: Z34.90 Encounter for supervision of normal pregnancy, unspecified, unspecified trimester (principal)
CPT/HCPCS: 76801

== ENCOUNTER 2021-08-26 09:28 | Outpatient (REF) | payer OTHER, SELFPAY | END 2021-08-26 09:29 | disposition home or self-care (01) | LOC: HO.LAB 09:28 | PROVIDERS: PCP Internal Medicine; Visit Provider Obstetrics & Gynecology | DX: Z34.90 Encounter for supervision of normal pregnancy, unspecified, unspecified trimester (principal) | CPT/HCPCS: 86850; 86886; 86900; 86901; 99212 ==

== ENCOUNTER 2021-09-09 13:47 | Outpatient (REF) | payer OTHER, SELFPAY ==
--- NOTE | ~2021-09-09 | US_ITS ---
EXAMINATION: US OBSTETRICAL ULTRASOUND CLINICAL INFORMATION: Encounter for supervision of normal COMPARISON: 08/25/2021. TECHNIQUE: Transabdominal and endovaginal sonographic evaluation of the pelvis. FINDINGS: There is a single intrauterine gestational sac with visible yolk sac, embryo/fetus, and cardiac activity. There is no significant subchorionic hemorrhage or hematoma. HR: 147 beats per minute. CRL (crown rump length): 0.89 cm (7 weeks 0 days +/- 4 days). CLARA (estimated date of delivery): 04/28/2022 +/- 4 days. MATERNAL ADNEXA: The right maternal ovary measures 2.9 x 1.8 x 2.4 cm. No adnexal mass. Small follicles noted. The left maternal ovary measures 3.3 x 2 x 2.1 cm. No adnexal mass. Small follicles noted. There is no significant maternal adnexal mass. No maternal pelvic ascites. US/US OB <= 14 weeks fetus IMPRESSION: 1. Single intrauterine gestation with ultrasound gestational age of 7 weeks 0 days +/- 4 days. 2. Estimated date of delivery is 04/28/2022 +/- 4 days. 3. No maternal adnexal mass or pelvic ascites.
== END 2021-09-09 13:48 | disposition home or self-care (01) ==
LOC: HO.US 13:47
PROVIDERS: PCP Student in an Organized Health Care Education/Training Program; Visit Provider Obstetrics & Gynecology
DX: Z34.90 Encounter for supervision of normal pregnancy, unspecified, unspecified trimester (principal)
CPT/HCPCS: 76801

== ENCOUNTER → 2021-09-10 12:42 | Outpatient (BNVA) | payer OTHER, SELFPAY | PROVIDERS: PCP Student in an Organized Health Care Education/Training Program; Visit Provider Internal Medicine ==

== ENCOUNTER → 2021-09-15 11:30 | Outpatient (BNVA) | payer OTHER, SELFPAY | PROVIDERS: PCP Student in an Organized Health Care Education/Training Program; Visit Provider Obstetrics & Gynecology ==

== ENCOUNTER 2021-09-19 11:29 | Emergency (ER) | payer MEDICAID, SELFPAY ==
[2021-09-19 11:47] VITALS: BP 115/77; PULSE 106; RESP 16; TEMP 37.3; O2SAT 96; BMI 34.2
--- NOTE | 2021-09-19 11:55 | ED_ITS ---
HPI - URI/Sore Throat General Chief Complaint: Upper Respiratory Symptoms Stated Complaint: +covid, diff breathing, Time Seen by Provider: 09/19/21 11:36 History of Present Illness HPI Narrative: Patient is 26 years old presents today with having cough and congestion upper respiratory symptoms. Positive generalized malaise. Patient tested positive for coronavirus 4 days prior. Has been having symptoms for approximately for 5 days. Patient's proximally 9 weeks . Not having any vaginal bleeding. Patient is from home. 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 Related Data Home Medications Medication Instructions Recorded Confirmed escitalopram oxalate 20 mg tablet 20 mg PO QAM 08/19/20 09/10/21 hydroxyzine HCl 10 mg tablet 10 mg PO TID 08/19/20 09/10/21 propranolol 10 mg tablet 10 mg PO BID 08/19/20 09/10/21 Previous Rx's Medication Instructions Recorded ibuprofen 600 mg tablet 600 mg PO Q8H PRN #20 tab 07/29/21 vitamins no.144-folic 1 tab PO DAILY 180 Days #180 tab 08/26/21 acid 400 mcg chewable tablet Allergies Allergy/AdvReac Type Severity Reaction Status Date / Time metronidazole [From Flagyl] Allergy Severe Hives , Verified 09/10/21 13:04 problems breathing Review of Systems Review of Systems: Positive coughing Upper respiratory symptoms Positive for Positive mild Nausea no vomiting positive generalized malaise All system reviewed otherwise negative [facility] Past Medical History Medical History Depression with anxiety Mild asthma Obesity (BMI 30.0-34.9) Renal mass, left Vitamin D deficiency Surgical History History of tooth extraction Family History Family History Father Cancer Seizures Mother Hypertension Kidney stones Paternal Grandmother Breast cancer Diabetes mellitus Paternal Grandfather Diabetes mellitus Maternal Aunt Hypertension Social History Social History Alcohol intake: current Alcohol intake frequency: holidays/special occasions only Patient Tobacco Use Status: Never used Tobacco Advance Directives: No Advance Directives Information Provided: Yes Patient : Yes Gender identity: Female Physical Exam Vital Signs: Vital Signs: Last Vital Signs Temp 99.1 F 09/19/21 11:47 Pulse 106 H 09/19/21 11:47 Resp 16 09/19/21 11:47 BP 115/77 09/19/21 11:47 Pulse Ox 96 09/19/21 11:47 Body Mass Index 34.2 Appearance: Alert. Oriented X3. No acute distress. Eyes: Pupils equal, round and reactive to light. ENT: Pharynx normal. Neck: Normal inspection. Neck supple. No lymph nodes noted. No crepitus CVS: Normal heart rate and rhythm. Pulses normal. Normal S1 and S2 Respiratory: No respiratory distress. Breath sounds normal. No Wheezing. No rales Abdomen: Soft and nontender. No rigidity. No distention. good BS x4 Skin: Skin warm and dry. Normal skin color. Normal skin turgor. Extremities: No lower extremity edema. Neurovascular intact to all extremities. No Lacerations. No Rash Neuro: Oriented X 3. No motor deficit. No sensory deficit. Moving all extermities. No slurred speech MDM - URI/Sore Throat MDM Narrative Medical decision making narrative: Patient's lungs are clear. O2 sats 96 % on room air. Case discussed with [facility] for possible regeneron treatment. Case discussed with patient as well. She is interested in the antibody treatment. Currently in stable condition normal O2 sat tolerate p.o.. In stable condition with discharge home. Medical Records Attestation: I reviewed the patient's medical records. Lab Data Attestation: I reviewed the patient's lab results. Discharge Plan Discharge Clinical Impression: COVID-19 Patient Disposition: Home, Self-Care Instructions: COVID-19 (Coronavirus Disease 2019) (ED) Prescriptions: No Action ibuprofen 600 mg tablet 600 mg PO Q8H PRN (Reason: pain) Qty: 20 RF: 0 escitalopram oxalate 20 mg tablet 20 mg PO QAM RF: 0 hydroxyzine HCl 10 mg tablet 10 mg PO TID RF: 0 propranolol 10 mg tablet 10 mg PO BID RF: 0 no.144-folic acid 400 mcg tablet,chewable 1 tab PO DAILY 180 Days Qty: 180 RF: 1 Referrals: Maria Alejandra Broussard MD [Primary Care Provider] - 2 days (Please call [phone] to schedule for antibody treatment.)
== END 2021-09-19 12:06 | disposition home or self-care (01) ==
PROVIDERS: Emergency Provider Emergency Medicine Emergency Medical Services; PCP Internal Medicine
DX: O98.511 Other viral diseases complicating pregnancy, first trimester (principal); U07.1 COVID-19; Z3A.09 9 weeks gestation of pregnancy
CPT/HCPCS: 99283

== ENCOUNTER → 2021-09-21 13:54 | Outpatient (BNVA) | payer MEDICAID, SELFPAY | PROVIDERS: PCP Student in an Organized Health Care Education/Training Program; Visit Provider Obstetrics & Gynecology | DX: Z34.91 Encounter for supervision of normal pregnancy, unspecified, first trimester (principal); Z3A.11 11 weeks gestation of pregnancy | CPT/HCPCS: 99212 ==

== ENCOUNTER 2021-10-08 20:07 | Emergency (ER) | payer MEDICAID, SELFPAY ==
[2021-10-08 20:24] VITALS: BP 111/76; PULSE 102; RESP 18; TEMP 36.8; O2SAT 100; BMI 32.5
[2021-10-08 21:02] LABS: COVID-19 Test Negative (Negative)
--- NOTE | 2021-10-08 21:09 | ED_ITS ---
HPI - General Adult General Chief complaint: General Medical Stated complaint: flu like symptoms post vaccine/wks preg Time Seen by Provider: 10/08/21 20:46 Source: patient Mode of arrival: ambulatory Limitations: no limitations History of Present Illness HPI narrative: 26-year-old female who is currently 11 weeks with her 1st baby presents to the ER with COVID like symptoms after receiving her for stroke COVID vaccination on Tuesday. She recently had COVID-19 infection on September 15. She had fevers for 7 days. Her OB was worried about her given the but she ended up doing okay at home and did not require hospitalization. When she was fully recovered her primary care doctor recommended she get vaccinated 2 weeks after her infection. Patient reports symptoms headache, fevers, vomiting and a sore left arm that have been present since Tuesday. She has been taking 650 mg of Tylenol with no relief in her headache. She denies any vaginal bleeding. She is worried about the baby. MD complaint: COVID symptoms after COVID shot Onset (ago): day(s) (2) Location: head and abdomen Radiation: non-radiation Severity: moderate Severity scale (1-10): 6 Quality: aching Pain Consistency: constant Relieving factors: none Exacerbating factors: none Associated symptoms: fever/chills, headaches, nausea/vomiting and weakness Treatments prior to arrival: none Related Data Home Medications Medication Instructions Recorded Confirmed escitalopram oxalate 20 mg tablet 20 mg PO QAM 08/19/20 09/21/21 hydroxyzine HCl 10 mg tablet 10 mg PO TID 08/19/20 09/10/21 propranolol 10 mg tablet 10 mg PO BID 08/19/20 09/10/21 Previous Rx's Medication Instructions Recorded ibuprofen 600 mg tablet 600 mg PO Q8H PRN #20 tab 07/29/21 vitamins no.144-folic 1 tab PO DAILY 180 Days #180 tab 08/26/21 acid 400 mcg chewable tablet doxylamine succinate 25 mg tablet 12.5 mg PO BEDTIME 30 Days #15 tab 10/05/21 (Unisom (doxylamine)) pyridoxine (vitamin B6) 25 mg 25 mg PO TID #90 tab 10/05/21 tablet Allergies Allergy/AdvReac Type Severity Reaction Status Date / Time metronidazole [From Flagyl] Allergy Severe Hives , Verified 10/08/21 20:24 problems breathing Review of Systems Review of Systems: Constitutional: + Fever, + Chills ENT/Mouth: No sore throat, No Rhinorrhea, No Swallowing Difficulty Eyes: No Eye Pain, No Swelling, No Redness Cardiovascular: No Chest Pain, No SOB, No Orthopnea, No Edema Respiratory: No Cough, No Sputum, No Wheezing, No dyspnea Gastrointestinal: + Nausea, + Vomiting, No Diarrhea, No abdominal Pain Musculoskeletal: No joint pain, + Myalgias Skin: No Skin Lesions, No rash Neuro: No Weakness, No Numbness, No Dizziness, + Headache Psych: +Anxiety/Panic, No Depression Heme/Lymph: No Bruising, No Lymphadenopathy PMFSH Past Medical History Medical History (Updated 10/08/21 @ 21:58 by FRANSISCO Connelly) Asthma Depression with anxiety Mild asthma Obesity (BMI 30.0-34.9) Renal mass, left Vitamin D deficiency Surgical History History of tooth extraction Family History Family History Father Cancer Seizures Mother Hypertension Kidney stones Paternal Grandmother Breast cancer Diabetes mellitus Paternal Grandfather Diabetes mellitus Maternal Aunt Hypertension Social History Social History (Updated 09/21/21 @ 14:29 by Hannah Stephenson LPN) Household Members: None Alcohol intake: former Patient Tobacco Use Status: Never used Tobacco Advance Directives: No Advance Directives Information Provided: No Patient : Yes Gender identity: Female Physical Exam Vital Signs: Vital Signs: Last Vital Signs Temp 98.2 F 10/08/21 20:24 Pulse 102 H 10/08/21 20:24 Resp 18 10/08/21 20:24 BP 111/76 10/08/21 20:24 Pulse Ox 100 10/08/21 20:24 Body Mass Index 32.5 Appearance: Alert. Oriented X3. No acute distress. Eyes: Normal external inspection. ENT: Pharynx normal. Neck: Normal inspection. Neck supple. CVS: Normal heart rate and rhythm. Pulses normal. Respiratory: No respiratory distress. Breath sounds normal. Abdomen: Soft and nontender. Palpable gravid uterus below the level of the umbilicus. +BS x4 Skin: Skin warm and dry. Normal skin color. Normal skin turgor. No rashes. Extremities: No lower extremity edema. Neuro: Oriented X 3. Anxious, grossly normal mental status, nonfocal. Course Course Course Narrative: 26-year-old female G1 presenting with headache, intermittent fevers, nasal congestion, myalgias and vomiting after she received her 1st COVID vaccination 2 days ago. She had COVID earlier this month. On arrival she is nontoxic appearing, anxious about the baby. She denies any vaginal cramping or bleeding. Her COVID test is negative and her vital signs are reassuring. Unable to get heart tones with the hand-held device so a bedside ultrasou nd was performed and a heart tone of 150+ was detected, single IUP detected, active. This reassured the patient. She is very thankful. Patient reassured and counseled. She is stable for discharge home with supportive care and outpatient follow-up with Dr. Shah. Medical Decision Making Lab Data Labs: Lab Results 10/08/21 Range/Units 20:41 COVID-19 (FRIEDA) Negative (Negative) COVID-19 Clin Com See Note Critical Care Time Critical Care Time Critical Care Time: No Discharge Plan Discharge Clinical Impression: Headache Qualifiers: Headache type: unspecified Headache chronicity pattern: episodic headache Intractability: not intractable Qualified Code(s): R51.9 - Headache, unspecified Qualifiers: Weeks of gestation: 11 weeks Qualified Code(s): Z3A.11 - 11 weeks gestation of Patient Disposition: Home, Self-Care Instructions: Cold Symptoms (ED), General Headache (ED), at 11 to 14 Weeks (ED) Additional Instructions: Continue take 650 mg of Tylenol every 6 hours as needed for headache and muscle aches. Recommend heating pad to your neck and upper shoulders. Rest & stay hydrated, make sure you drink plenty of water. Follow-up with your OBGYN as scheduled. If you develop new or worsening symptoms call 911 or come back to the ER for further evaluation. Prescriptions: No Action Unisom (doxylamine) 25 mg tablet 12.5 mg PO BEDTIME 30 Days Qty: 15 RF: 0 pyridoxine (vitamin B6) 25 mg tablet 25 mg PO TID Qty: 90 RF: 0 ibuprofen 600 mg tablet 600 mg PO Q8H PRN (Reason: pain) Qty: 20 RF: 0 escitalopram oxalate 20 mg tablet 20 mg PO QAM RF: 0 hydroxyzine HCl 10 mg tablet 10 mg PO TID RF: 0 propranolol 10 mg tablet 10 mg PO BID RF: 0 no.144-folic acid 400 mcg tablet,chewable 1 tab PO DAILY 180 Days Qty: 180 RF: 1
--- NOTE | 2021-10-08 22:20 | PC.NURSE ---
UNABLE TO OBTAIN HEART TONE AT BEDSIDE. FRANSISCO RICARDO PERFORMED US AT BEDSIDE FOR PT.
== END 2021-10-08 22:04 | disposition home or self-care (01) ==
PROVIDERS: Emergency Provider Student in an Organized Health Care Education/Training Program; PCP Internal Medicine
DX: O26.91 Pregnancy related conditions, unspecified, first trimester (principal); Z3A.11 11 weeks gestation of pregnancy; Z20.822 Contact with and (suspected) exposure to COVID-19; Z87.891 Personal history of nicotine dependence
CPT/HCPCS: 36415; 87635; 99283

== ENCOUNTER → 2021-10-14 15:01 | Outpatient (BNVA) | payer MEDICAID, SELFPAY | PROVIDERS: PCP Internal Medicine; Visit Provider Advanced Practice Midwife | DX: Z34.01 Encounter for supervision of normal first pregnancy, first trimester (principal); Z3A.12 12 weeks gestation of pregnancy | CPT/HCPCS: 81003; 99212 ==

== ENCOUNTER 2021-10-16 11:06 | Outpatient (REF) | payer OTHER, MEDICAID, SELFPAY ==
--- NOTE | ~2021-10-16 | US_ITS ---
EXAMINATION: OBSTETRICAL ULTRASOUND, FIRST TRIMESTER HISTORY: 26-year-old at 12.2 weeks of gestation NT screening COMPARISON: 09/09/2021 TECHNIQUE: Real time transabdominal imaging with color and M-mode Doppler. FINDINGS: A single, live IUP CRL of 65.0 mm c/w 12.6wks is noted. Heart Rate: 152 beats per minute. Normal yolk sac seen. NT was 1.27.mm. NB Present The embryo appears sonographically wnl for this GA. Both maternal ovaries are seen and appear normal. GESTATIONAL AGE: 1. Established GA: 12.2 wks 2. GA from AUA: 12.6 wks ESTIMATED DATE OF DELIVERY: 1. Established CLARA: 04/28/2022 2. CLARA from [facility]: 04/24/2022 US/US OB 1T nuc measure IMPRESSION: 1. A single live IUP 2. Size equals dates 3. NT of 1.27 mm MFM Consultation: I reviewed the ultrasound findings along with significance of NT measurement. The NT of less than 3mm is generally reassuring. However, the sensitivity for T21 detection is only 60%. I reviewed the availability of serum aneuploidy screening which includes cell-free DNA and placental protein based tests. I discussed the sensitivity, false-positive rate, and other limitations associated with each test. I also reviewed the availability of invasive diagnostic tests that are associated small but definite risk of miscarriage. We also reviewed the differences between screening tests and diagnostic tests. After our discussion, she opted for the First trimester screening that is based on cell-free DNA or non-invasive testing (NIPT). She is on Lexapro 20 mg by mouth q.d. for depression/anxiety. Use of SSRI in is considered acceptable as long as there is a maternal indication. adaptation syndrome is a possibility in the neonatologists should be aware at the time of delivery. The result will be faxed to your office in approximately 7 days. A follow up at 18 weeks for survey has been scheduled. Thank you very much for this referral. Total time 30 minutes. The time spent was devoted to counseling the patient about the disease and diagnosis, coordinating care including reviewing her records, pertinent lab data and studies, as well as discussing diagnostic evaluation and workup, plan therapeutic interventions and future disposition of care. This includes any additional research needed to obtain further information in formulating the plan of care of this patient. This note was generated with a voice recognition program. Please excuse any errors which may have been overlooked during my review of this note. Sometimes these errors may affect the content or meaning of a given sentence.
== END 2021-10-16 11:07 | disposition home or self-care (01) ==
LOC: HO.US 11:06
PROVIDERS: Visit Provider Obstetrics & Gynecology
DX: O26.891 Other specified pregnancy related conditions, first trimester (principal); O99.341 Other mental disorders complicating pregnancy, first trimester; N89.8 Other specified noninflammatory disorders of vagina; N63.0 Unspecified lump in unspecified breast; Z79.899 Other long term (current) drug therapy; Z3A.12 12 weeks gestation of pregnancy
CPT/HCPCS: 76813; 81003; 99212

== ENCOUNTER 2021-10-16 14:25 | Outpatient (REF) | payer OTHER, SELFPAY ==
[2021-10-18 13:06] LABS: BV Int Neg Control Negative (Negative); BV Int Pos Control Positive (Positive)
== END 2021-10-16 14:26 | disposition home or self-care (01) ==
LOC: HO.LAB 14:25
PROVIDERS: Visit Provider Advanced Practice Midwife
DX: O26.899 Other specified pregnancy related conditions, unspecified trimester (principal); N89.8 Other specified noninflammatory disorders of vagina
CPT/HCPCS: 87480; 87510; 87660; 88142

== ENCOUNTER 2021-11-15 09:09 | Emergency (ER) | payer OTHER, SELFPAY ==
[2021-11-15 09:30] VITALS: BP 136/66; PULSE 101; RESP 18; TEMP 36.1; O2SAT 99; BMI 34.2
--- NOTE | 2021-11-15 11:11 | PC.NURSE ---
Pt received: Pt AOX4 and states chills and fatgiue. Pt noted to be presently . Heart sonds normal and lungs clear. Pt ambulatory indepdantly.
[2021-11-15 11:15] LABS: COVID-19 Test Negative (Negative)
--- NOTE | 2021-11-15 11:35 | ED_ITS ---
HPI - URI/Sore Throat General Chief Complaint: Upper Respiratory Symptoms Stated Complaint: sore throat, chills Time Seen by Provider: 11/15/21 11:35 Source: patient Mode of arrival: ambulatory Limitations: no limitations History of Present Illness HPI Narrative: This is a 26-year-old female past medical history significant for PCOS, and mild asthma presents to the emergency department with complaints of body aches and sore throat since yesterday. Patient tells me that this came on suddenly, and she has been feeling tired and fatigued. She tells me that she is vaccinated against COVID-19. Per significant other is experiencing similar symptoms. She denies chest pain, shortness of breath, fevers, chills, nausea, vomiting, diarrhea, abdominal pain, headache, dizziness. Patient is tolerating foods, and fluids well. Potential recent sick contact. Patient is around 16 weeks no OBGYN complaints at this time. Followed by OBGYN and takes vitamins. MD elicited complaint: sore throat Onset (ago): day(s) (2) Consistency: constant Severity: mild Able to tolerate fluids by mouth: Yes Exacerbating factors: nothing Relieving factors: nothing Context: sick contacts (Possible sick contact 3 days ago.) Associated symptoms: other (Myalgias) Treatments prior to arrival: none Related Data Home Medications Medication Instructions Recorded Confirmed escitalopram oxalate 20 mg tablet 20 mg PO QAM 08/19/20 10/14/21 Previous Rx's Medication Instructions Recorded ibuprofen 600 mg tablet 600 mg PO Q8H PRN #20 tab 07/29/21 vitamins no.144-folic 1 tab PO DAILY 180 Days #180 tab 08/26/21 acid 400 mcg chewable tablet doxylamine succinate 25 mg tablet 12.5 mg PO BEDTIME 30 Days #15 tab 10/05/21 (Unisom (doxylamine)) aspirin 81 mg tablet,delayed 162 mg PO DAILY #360 tab 10/14/21 release (Adult Aspirin Regimen) metronidazole 500 mg tablet 500 mg PO BID 7 Days #14 tab 10/20/21 pyridoxine (vitamin B6) 25 mg 25 mg PO TID 30 Days #90 tab 10/22/21 tablet Allergies Allergy/AdvReac Type Severity Reaction Status Date / Time metronidazole [From Flagyl] Allergy Severe Hives , Verified 10/16/21 13:47 problems breathing Review of Systems Review of Systems: Constitutional : No Fever, No Chills, positive fatigue, positive Malaise ENT/Mouth : positive sore throat, No runny nose Eyes: No Discharge Cardiovascular : No Chest Pain, No SOB Respiratory : No Cough, No Sputum Gastrointestinal : No Nausea, No Vomiting, No Diarrhea Genitourinary : No Dysuria, No Urinary Frequency Musculoskeletal : positive Myalgia Skin : No rash Neuro : No Headache Yes all other systems are reviewed and are negative [facility] Past Medical History Attestation statement: The following information was validated with the patient. Source: old records reviewed and nursing notes reviewed Medical History Asthma Depression with anxiety Mild asthma Obesity (BMI 30.0-34.9) Renal mass, left Vitamin D deficiency Surgical History History of tooth extraction Family History Family History Father Cancer Seizures Mother Hypertension Kidney stones Paternal Grandmother Breast cancer Diabetes mellitus Paternal Grandfather Diabetes mellitus Maternal Aunt Hypertension Social History Social History Household Members: None Alcohol intake: former Patient Tobacco Use Status: Never used Tobacco Advance Directives: No Advance Directives Information Provided: No Patient : Yes Gender identity: Female Physical Exam Vital Signs: Vital Signs: Last Vital Signs Temp 96.9 F 11/15/21 09:30 Pulse 101 H 11/15/21 09:30 Resp 18 11/15/21 09:30 BP 136/66 11/15/21 09:30 Pulse Ox 99 11/15/21 09:30 BMI result Body Mass Index 34.2 Vital signs stable, patient is slightly tachycardic however these vitals were obtained after ambulation. Upon my examination patient's heart rate was in the 80s upon auscultation Appearance: Alert.? Oriented X3.? No acute distress.? Head: Normocephalic, atraumatic, no step-offs or deformities Eyes: Pupils equal, round and reactive to light.? ENT: Pharynx normal.? Neck: Normal inspection.? Neck supple.? CVS: Normal heart rate and rhythm.? Pulses normal.? Respiratory: No respiratory distress.? Breath sounds normal.? Abdomen: Soft and nontender.? Skin: Skin warm and dry.? Normal skin color.? Normal skin turgor.? Extremities: No lower extremity edema.? No calf ttp. 5/5 strength to bilateral upper and lower extremities Neuro: Oriented X 3.? No motor deficit.? No sensory deficit. Course Course Course Narrative: Discussed this case with Reevaluation(s) Reevaluation #1: Patient is COVID negative. heart tones pending. Time: 11:40 Reevaluation #2: heart rate normal 138. At this time I feel comfortable with discharge home, I have given patient strict return precautions and have advised her to return with new or worsening symptoms. I have outlined these in her discharge. I have also advised her to retest in 2-4 days. Comfortable with discharge home Time: 12:30 MDM - URI/Sore Throat MDM Narrative Medical decision making narrative: 1135 26 yo F pmhx asthma, pcos presents with body aches & sore throat since yesterday. Endorses a possible sick contact. Patient is vaccinated. Patient is about 16 weeks , she has no abdominal pain, no abnormal vaginal bleeding, no contractions, reports normal course of . No concerns for any obstetric issues Physical examination benign. No calf tenderness on palpation Plan at this time is to obtain a COVID test and heart tones Medical Records Attestation: I reviewed the patient's medical records. Lab Data Attestation: I reviewed the patient's lab results. Labs: Lab Results 11/15/21 Range/Units 10:54 COVID-19 ([facility]) Negative (Negative) COVID-19 Clin Com See Note Critical Care Time Critical Care Time Critical Care Time: No Discharge Plan Discharge Clinical Impression: Upper respiratory infection Patient Disposition: Home, Self-Care Instructions: Upper Respiratory Infection (ED) Additional Instructions: Take your medications as prescribed. If you were prescribed antibiotics today, it is important that you take your medication to their entirety, do not skip any doses, do not finish them early. Follow-up with your primary care provider this week. Follow up with OBGYN Return to the emergency department with new or worsening symptoms. In case of emergency call 911 Although you tested negative for COVID-19 today, I recommend to retest in 2-4 days. I also recommend you quarantine for 7 days. Please return to the emergency department with new or worsening symptoms such as chest pain, shortness of breath, fevers, chills, nausea, vomiting, weakness. If you develop vaginal bleeding, abdominal pain, contractions, return to the ED Prescriptions: No Action Unisom (doxylamine) 25 mg tablet 12.5 mg PO BEDTIME 30 Days Qty: 15 RF: 0 metronidazole 500 mg tablet 500 mg PO BID 7 Days Qty: 14 RF: 0 pyridoxine (vitamin B6) 25 mg tablet 25 mg PO TID 30 Days Qty: 90 RF: 0 ibuprofen 600 mg tablet 600 mg PO Q8H PRN (Reason: pain) Qty: 20 RF: 0 escitalopram oxalate 20 mg tablet 20 mg PO QAM RF: 0 aspirin [Adult Aspirin Regimen] 81 mg tablet,delayed release (DR/EC) 162 mg PO DAILY Qty: 360 RF: 1 no.144-folic acid 400 mcg tablet,chewable 1 tab PO DAILY 180 Days Qty: 180 RF: 1 Referrals: [facility] [Primary Care Provider] - 2 days Stand Alone Forms: Work/School Release
== END 2021-11-15 13:16 | disposition home or self-care (01) ==
PROVIDERS: Emergency Provider Emergency Medicine
DX: O99.512 Diseases of the respiratory system complicating pregnancy, second trimester (principal); J06.9 Acute upper respiratory infection, unspecified; J45.909 Unspecified asthma, uncomplicated; Z3A.16 16 weeks gestation of pregnancy; Z20.822 Contact with and (suspected) exposure to COVID-19
CPT/HCPCS: 36415; 87635; 99283

== ENCOUNTER 2021-11-18 14:26 | Outpatient (REF) | payer OTHER, SELFPAY ==
[2021-11-18 17:48] LABS: Hemoglobin 11.1 g/dl (12.0-16.0); Mean Corpuscular HGB Conc 32.6 g/dl (31.0-35.0); Mean Corpuscular Hemoglobin 29.1 pg (27.0-33.0); Mean Platelet Volume 10.4 fL (9.4-12.3); Platelet Count 303 X10*3/uL (160-400); Red Blood Count 3.82 X10*6/uL (4.20-5.50); Red Cell Distribution Width 13.9 % (11.0-16.0); White Blood Count 11.3 X10*3/uL (4.8-10.8)
[2021-11-18 18:13] LABS: Amphetamine Screen Urine Not Detected (Not Detect); Barbiturates, Urine Not Detected (Not Detect); Benzodiazepines Screen Urine Not Detected (Not Detect); Cannabinoid Screen Urine Not Detected (Not Detect); Cocaine Screen Urine Not Detected (Not Detect); Fentanyl, urine Not Detected (Not Detect); Opiate Screen Urine Not Detected (Not Detect); Phencyclidine Screen Urine Not Detected (Not Detect)
[2021-11-18 18:32] LABS: Glucose 1 Hour PP 50gm Dose 126 mg/dL (60-140)
[2021-11-18 18:41] LABS: Syphilis Screen Nonreactive (Nonreactive)
[2021-11-19 05:37] LABS: HIV AB/AG Nonreactive (Nonreactive); HIV Num 1 0.12 S/CO (0.00-0.99)
[2021-11-19 05:42] LABS: HBsAGNum1 0.18 S/CO (0.00-0.99); Hepatitis B Surface Antigen Negative (Negative); ~HepC Num1 0.09 S/CO (0.00-0.79); ~Hepatitis C Antibody Nonreactive (Nonreactive)
[2021-11-19 08:51] LABS: Varicella IgG Antibody <135.00 index
[2021-11-19 09:02] LABS: Rubella IgG Antibody 3.04 Index
[2021-11-29 16:12] LABS: CF Ethnicity NG; Cystic Fibrosis NEGATIVE (NEGATIVE)
== END 2021-11-18 14:27 | disposition home or self-care (01) ==
LOC: HO.LAB 14:26
PROVIDERS: PCP Internal Medicine; Visit Provider Obstetrics & Gynecology
DX: Z34.91 Encounter for supervision of normal pregnancy, unspecified, first trimester (principal); Z3A.12 12 weeks gestation of pregnancy
CPT/HCPCS: 36415; 80307; 81003; 81220; 82105; 85027; 86762; 86780; 86787; 86803; 86850; 86900; 86901; 87086; 87340; 87389; 99212

== ENCOUNTER 2021-12-04 12:51 | Outpatient (REF) | payer OTHER, SELFPAY ==
--- NOTE | ~2021-12-04 | US_ITS ---
EXAMINATION: US OBSTETRICAL CLINICAL INFORMATION: 26-year-old at 19.2 weeks of gestation Screening for anomaly COMPARISON: 10/16/2021 TECHNIQUE: Real-time transabdominal ultrasound was performed using C1-5 megahertz transducer. FINDINGS: A single, active, fetus is seen in vertex presentation. The placenta is anterior without previa, and the amniotic fluid volume is wnl. MEASUREMENTS: 1. Biparietal Diameter: 4.5 cm; 19.4 wks 2. Occipital Frontal Diameter: 6.8 cm 3. Head Circumference: 17.9 cm; 20.3 wks 4. Abdominal Circumference: 15.2 cm; 20.3 wks 5. Femur Length: 3.4 cm; 20.4 wks 6. Humerus Length: 6 3.2 cm; 20.5 wks 7. Tibia Length: 2.5 cm; 19.1 wks 8. Ulna Length: 2.7 cm; 20.0 wks 9. Lateral ventricle: 0.5 cm 10. Cerebellum: 1.96 cm; 20.1 wks 11. Cisterna Magna: 0.56 cm 12. Nuchal Fold: 4.2 mm 13. Heart Rate: 150 beats per minute Rt ovary: normal Lt ovary: normal Cervical length 3.5 cm on T/A. GESTATIONAL AGE: 1. Established GA: 19.2 wks 2. GA from [facility]: 20.2 wks ESTIMATED DATE OF DELIVERY: 1. Established CLARA: 04/28/2022 2. CLARA from [facility]: 04/21/2022 ANATOMY: The visualized anatomy includes but not limited to: 1. Cranium: Normal 2. Intracranial anatomy: cavum septum pellucidi, lateral ventricles, choroid plexus, cerebellum, posterior fossa, third and fourth ventricles. 3. face: orbits, lip/palate, profile, nasal bone 4. Heart: four-chamber view of the heart, ventricular septum, foramen ovale, pulmonary vein, left and right outflow tracts, three-vessel view, 3 vessel trachea view, aortic and ductal arches, situs.. 5. Diaphragm: Normal 6. Abdominal wall: Normal 7. Cord Insertion: Normal 8. Spine: Cervical, thoracic, lumbar, sacral. 9. Stomach: Normal size and shape 10. Right Kidney: Normal 11. Left Kidney: Normal 12. 3 vessel cord: Normal 13. Upper extremity: Open hands, fifth digit. 14. Lower extremity: Tibia, fibula, bilateral feet. 15. Bladder: Normal 16. Genitalia: Female, patient aware US/US OB /maternal detail IMPRESSION: 1. Single, living, intrauterine with appropriate biometry. 2. Normal survey DISCUSSION: I reviewed today's ultrasound findings. We discussed the limitations of ultrasound in diagnosing aneuploidy and other congenital abnormalities. I reviewed the differences between screening test and diagnostic test. Amniocentesis was discussed and declined. She was informed that the baseline incidence of congenital abnormalities is approximately 3-5%. Not all these conditions are diagnosable in utero. RECOMMENDATIONS: 1. Follow-up when necessary Thank you for allowing me to participate in her care. Total time 20 minutes. The time spent was devoted to counseling the patient about the disease and diagnosis, coordinating care including reviewing her records, pertinent lab data and studies, as well as discussing diagnostic evaluation and workup, plan therapeutic interventions and future disposition of care. This includes any additional research needed to obtain further information in formulating the plan of care of this patient. This note was generated with a voice recognition program. Please excuse any errors which may have been overlooked during my review of this note. Sometimes these errors may affect the content or meaning of a given sentence.
== END 2021-12-04 12:52 | disposition home or self-care (01) ==
LOC: HO.US 12:51
PROVIDERS: Visit Provider Obstetrics & Gynecology
DX: Z34.92 Encounter for supervision of normal pregnancy, unspecified, second trimester (principal); Z3A.19 19 weeks gestation of pregnancy
CPT/HCPCS: 76811

== ENCOUNTER → 2021-12-16 14:26 | Outpatient (BNVA) | payer OTHER, SELFPAY | PROVIDERS: PCP Internal Medicine; Visit Provider Obstetrics & Gynecology | DX: Z34.02 Encounter for supervision of normal first pregnancy, second trimester (principal) | CPT/HCPCS: 90471; 99212 ==

== ENCOUNTER → 2022-01-14 15:20 | Outpatient (BNVA) | payer OTHER, SELFPAY | PROVIDERS: PCP Nurse Practitioner Family; Visit Provider Obstetrics & Gynecology | DX: Z34.02 Encounter for supervision of normal first pregnancy, second trimester (principal); Z3A.25 25 weeks gestation of pregnancy | CPT/HCPCS: 81003; 99212 ==

== ENCOUNTER 2022-01-22 16:45 | Outpatient (REF) | payer OTHER, SELFPAY | END 2022-01-22 16:46 | disposition home or self-care (01) | LOC: HO.LAB 16:45 | PROVIDERS: Absent Provider Obstetrics & Gynecology; PCP Internal Medicine; Visit Provider Nurse Practitioner Family | DX: Z13.89 Encounter for screening for other disorder (principal) ==

== ENCOUNTER 2022-02-01 15:27 | Outpatient (REF) | payer OTHER, SELFPAY ==
[2022-02-01 17:25] LABS: Hematocrit 31.1 % (37.0-47.0); Hemoglobin 10.3 g/dl (12.0-16.0); Mean Corpuscular HGB Conc 33.1 g/dl (31.0-35.0); Mean Corpuscular Hemoglobin 29.9 pg (27.0-33.0); Mean Corpuscular Volume 90.4 fL (80.0-98.0); Mean Platelet Volume 10.1 fL (9.4-12.3); Platelet Count 265 X10*3/uL (160-400); Red Blood Count 3.44 X10*6/uL (4.20-5.50); White Blood Count 12.3 X10*3/uL (4.8-10.8)
[2022-02-01 18:10] LABS: Glucose 1 Hour PP 50gm Dose 136 mg/dL (60-140)
[2022-02-01 18:35] LABS: Syphilis Screen Nonreactive (Nonreactive)
[2022-02-03 23:22] LABS: TS Negative Control Passed; TS Panel A 0; TS Panel B 0; TS Positive Control Passed; TSpotTB Negative (Negative)
== END 2022-02-01 15:28 | disposition home or self-care (01) ==
LOC: HO.LAB 15:27
PROVIDERS: Referring Provider Nurse Practitioner Family; Visit Provider Obstetrics & Gynecology
DX: Z34.90 Encounter for supervision of normal pregnancy, unspecified, unspecified trimester (principal); Z11.1 Encounter for screening for respiratory tuberculosis
CPT/HCPCS: 36415; 85027; 86481; 86780

== ENCOUNTER → 2022-02-04 15:23 | Outpatient (BNVA) | payer OTHER, SELFPAY | PROVIDERS: Visit Provider Obstetrics & Gynecology | DX: Z34.03 Encounter for supervision of normal first pregnancy, third trimester (principal); Z3A.28 28 weeks gestation of pregnancy | CPT/HCPCS: 99212 ==

== ENCOUNTER 2022-02-06 08:00 | Outpatient (REF) | payer OTHER, SELFPAY ==
[2022-02-06 08:54] LABS: Glucose 1 Hour PP 50gm Dose 95 mg/dL (60-140)
[2022-02-06 08:58] LABS: Alanine Aminotransferase 21 U/L (0-31); Albumin Level 3.6 g/dL (3.5-5.0); Alkaline Phosphatase 62 U/L (39-117); Anion Gap 13 (12-20); Aspartate Amino Transferase 14 U/L (5-31); Bilirubin Total 0.3 mg/dL (0.0-1.0); Blood Urea Nitrogen 7 mg/dL (9-16); Calcium 9.3 mg/dL (8.4-10.2); Carbon Dioxide 23 mmol/L (22-29); Chloride 107 mmol/L (96-108); Cholesterol 198 mg/dL; Estimated Glomerular Filt Rate > 60; Glucose Random 95 mg/dL (60-115); HDL Cholesterol 53 mg/dL; LDL Cholesterol Calculated 112 mg/dl; Sodium 139 mmol/L (135-145); Total Protein 6.5 g/dL (6.5-8.0); Triglycerides 165 mg/dL
[2022-02-06 09:16] LABS: Cortisol Random 23.8 ug/dL
[2022-02-06 09:19] LABS: Free T4 (Free Thyroxine) 0.79 ng/dL (0.71-1.85); Thyroid Stimulating Hormone 2.39 uIU/mL (0.32-4.0)
[2022-02-06 09:54] LABS: Glucose 1 Hour 198 mg/dL
[2022-02-06 10:38] LABS: Amphetamine Screen Urine Not Detected (Not Detect); Barbiturates, Urine Not Detected (Not Detect); Benzodiazepines Screen Urine Not Detected (Not Detect); Cannabinoid Screen Urine Not Detected (Not Detect); Cocaine Screen Urine Not Detected (Not Detect); Fentanyl, urine Not Detected (Not Detect); Opiate Screen Urine Not Detected (Not Detect)
[2022-02-06 10:49] LABS: Phencyclidine Screen Urine Not Detected (Not Detect)
[2022-02-06 11:37] LABS: Glucose 2 Hour 235 mg/dL
[2022-02-06 11:59] LABS: Glucose 3 Hour 240 mg/dL
[2022-02-06 12:23] LABS: Glucose Fasting 95 mg/dL (60-99)
[2022-02-07 08:32] LABS: LDL Cholesterol Direct 116 mg/dL (<100)
[2022-02-07 08:41] LABS: DHEA Sulfate 160 mcg/dL (14-349); Follicle Stimulating Hormone <0.7 mIU/mL; Lutenizing Hormone <0.2 mIU/mL
[2022-02-07 11:56] LABS: Sex Hormone Binding Globulin 202 nmol/L (17-124)
[2022-02-08 16:01] LABS: Adrenocorticotropic Hormone 49 pg/mL (6-50)
[2022-02-11 15:56] LABS: Testosterone, Free 4.1 pg/mL (0.1-6.4); Testosterone, Total 109 ng/dL (2-45)
[2022-02-12 18:32] LABS: Androstenedione 422 ng/dL
[2022-02-13 21:07] LABS: Estradiol Ultra Sensitive >4000 pg/mL
[2022-02-25 19:07] LABS: Estradiol, Ultrasensitive >4000 pg/mL
== END 2022-02-06 08:01 | disposition home or self-care (01) ==
LOC: HO.LAB 08:00
PROVIDERS: Internal Medicine; Visit Provider Obstetrics & Gynecology
DX: O26.899 Other specified pregnancy related conditions, unspecified trimester (principal); R79.89 Other specified abnormal findings of blood chemistry; Z3A.00 Weeks of gestation of pregnancy not specified
CPT/HCPCS: 36415; 80053; 80061; 80307; 82024; 82157; 82533; 82627; 82670; 82681; 82951; 83001; 83002; 83498; 83721; 84270; 84402; 84403; 84439; 84443

== ENCOUNTER → 2022-02-08 11:11 | Outpatient (BNVA) | payer OTHER, SELFPAY | PROVIDERS: Visit Provider Obstetrics & Gynecology | DX: O24.419 Gestational diabetes mellitus in pregnancy, unspecified control (principal); Z3A.28 28 weeks gestation of pregnancy | CPT/HCPCS: 99212 ==

== ENCOUNTER 2022-02-12 09:34 | Outpatient (REF) | payer OTHER, SELFPAY ==
--- NOTE | ~2022-02-12 | US_ITS ---
EXAMINATION: OBSTETRICAL ULTRASOUND, Follow up HISTORY: 26-year-old at 29.2 weeks of gestation Size date discrepancy Gestational diabetes COMPARISON: 12/04/2021 TECHNIQUE: Real time transabdominal imaging with color and M-mode Doppler. PRESENTATION: Vertex PLACENTA LOCATION: Anterior without previa AMNIOTIC FLUID: RAMIREZ 11.4 cm MEASUREMENTS: 1. Biparietal Diameter: 7.6 cm; 30.2 wks 2. Head Circumference: 28.9 cm; 31.5 wks 3. Abdominal Circumference: 26.1 cm; 30.2 wks 4. Femur Length: 5.9 cm; 30.4 wks 5. Heart Rate: 138 beats per minute WEIGHT: EFW: 1587 grams (3 lbs 8 oz) -- 81 %. BIOPHYSICAL PROFILE: Motion: 2 Tone: 2 Breathin Amniotic Fluid: 2 Total score: 8/8 GESTATIONAL AGE: 1. Established GA: 29.2 wks 2. GA from [facility]: 30.6 wks ESTIMATED DATE OF DELIVERY: 1. Established CLARA: 04/28/2022 2. CLARA from [facility]: 04/17/2022 US/US OB follow up IMPRESSION: A single active fetus is in vertex presentation Size equals dates BPP of 06/21 with normal amniotic fluid index. According to the patient, her fasting values range in the low 100s. She has been on GDM diet for approximately one week. I reviewed the cause and clinical implications of gestational diabetes and suboptimally controlled maternal serum glucose level. I reviewed the target of glucose values. I reassured her that even though the EFW is at 81st percentile, this does not the predict macrosomia at term. If her fasting values continue to be elevated on diet alone, metformin 500 mg daily at bedtime should be considered. A follow-up for growth in 3 weeks is been scheduled. Thank you very much for this referral. Total time 30 minutes. The time spent was devoted to counseling the patient about the disease and diagnosis, coordinating care including reviewing her records, pertinent lab data and studies, as well as discussing diagnostic evaluation and workup, plan therapeutic interventions and future disposition of care. This includes any additional research needed to obtain further information in formulating the plan of care of this patient. This note was generated with a voice recognition program. Please excuse any errors which may have been overlooked during my review of this note. Sometimes these errors may affect the content or meaning of a given sentence.
== END 2022-02-12 09:35 | disposition home or self-care (01) ==
LOC: HO.US 09:34
PROVIDERS: Visit Provider Obstetrics & Gynecology
DX: O24.419 Gestational diabetes mellitus in pregnancy, unspecified control (principal)
CPT/HCPCS: 76816

== ENCOUNTER → 2022-02-15 15:26 | Outpatient (BNVA) | payer OTHER, SELFPAY | PROVIDERS: Visit Provider Advanced Practice Midwife | DX: O24.410 Gestational diabetes mellitus in pregnancy, diet controlled (principal); O99.343 Other mental disorders complicating pregnancy, third trimester; F41.8 Other specified anxiety disorders; Z3A.29 29 weeks gestation of pregnancy; Z79.899 Other long term (current) drug therapy | CPT/HCPCS: 81003; 99212 ==

== ENCOUNTER → 2022-02-16 13:01 | Outpatient (BNVA) | payer OTHER, SELFPAY | PROVIDERS: Visit Provider Advanced Practice Midwife | DX: Z79.4 Long term (current) use of insulin (principal); Z71.89 Other specified counseling | CPT/HCPCS: 99211 ==

== ENCOUNTER 2023-01-29 10:27 | Outpatient (REF) | payer OTHER, SELFPAY ==
[2023-01-29 10:38] LABS: MANUAL DIFF FLAG NO
[2023-01-29 10:57] LABS: Basophils Absolute Auto 0.1 X10*3/uL (0.0-0.2); Basophils Percent Auto 0.6 % (0-2); Eosinophils Absolute Auto 0.3 X10*3/uL (0.0-0.4); Eosinophils Percent Auto 2.8 % (0-4); Hematocrit 41.5 % (37.0-47.0); Hemoglobin 13.8 g/dl (12.0-16.0); Imm Gran Abs Auto 0.02 X10*3/uL (0.00-0.03); Imm Gran Pct Auto 0.2 % (0.0-0.4); Lymphocytes Absolute Auto 4.1 X10*3/uL (1.2-4.9); Lymphocytes Percent Auto 45.5 % (20-40); Mean Corpuscular HGB Conc 33.3 g/dl (31.0-35.0); Mean Corpuscular Hemoglobin 29.5 pg (27.0-33.0); Mean Corpuscular Volume 88.7 fL (80.0-98.0); Mean Platelet Volume 9.8 fL (9.4-12.3); Monocytes Absolute Auto 0.5 X10*3/uL (0.1-1.2); Monocytes Percent Auto 5.6 % (2-11); Neutrophils Absolute Auto 4.1 x10*3/uL (2.0-8.3); Neutrophils Percent Auto 45.3 % (45-73); Platelet Count 338 X10*3/uL (160-400); Red Blood Count 4.68 X10*6/uL (4.20-5.50); Red Cell Distribution Width 13.5 % (11.0-16.0); White Blood Count 9.1 X10*3/uL (4.8-10.8)
[2023-01-29 11:04] LABS: Estimated Average Glucose 111 mg/dL; Hemoglobin A1c % 5.5 %
[2023-01-29 11:43] LABS: Alanine Aminotransferase 22 U/L (0-31); Albumin Level 4.4 g/dL (3.5-5.0); Alkaline Phosphatase 70 U/L (39-117); Anion Gap 14 (12-20); Aspartate Amino Transferase 18 U/L (5-31); Bilirubin Total 0.7 mg/dL (0.0-1.0); Blood Urea Nitrogen 11 mg/dL (9-16); Calcium 9.3 mg/dL (8.4-10.2); Carbon Dioxide 23 mmol/L (22-29); Chloride 107 mmol/L (96-108); Cholesterol 178 mg/dL; Estimated Glomerular Filt Rate > 60; Glucose Random 84 mg/dL (60-115); HDL Cholesterol 35 mg/dL; LDL Cholesterol Calculated 134 mg/dl; Potassium 4.3 mmol/L (3.3-5.1); Sodium 140 mmol/L (135-145); Total Protein 7.4 g/dL (6.5-8.0); Triglycerides 48 mg/dL
[2023-01-29 11:53] LABS: Vitamin B12 673 pg/mL (200-900); Vitamin D 25-OH Total 26.7 ng/mL (>30)
== END 2023-01-29 10:28 | disposition home or self-care (01) ==
LOC: HO.LAB 10:27
PROVIDERS: PCP Nurse Practitioner Family; Visit Provider Nurse Practitioner Family
DX: Z13.21 Encounter for screening for nutritional disorder (principal); Z13.29 Encounter for screening for other suspected endocrine disorder; Z13.220 Encounter for screening for lipoid disorders; Z13.0 Encounter for screening for diseases of the blood and blood-forming organs and certain disorders involving the immune mechanism
CPT/HCPCS: 36415; 80053; 80061; 82306; 82607; 83036; 84443; 85025

== ENCOUNTER 2023-02-01 15:01 | Outpatient (REF) | payer OTHER, SELFPAY ==
[2023-02-03 22:48] LABS: TS Negative Control Passed; TS Panel A 0; TS Panel B 0; TS Positive Control Passed; TSpotTB Negative (Negative)
== END 2023-02-01 15:02 | disposition home or self-care (01) ==
LOC: HO.LAB 15:01
PROVIDERS: PCP Nurse Practitioner Family; Visit Provider Nurse Practitioner Family
DX: Z11.1 Encounter for screening for respiratory tuberculosis (principal)
CPT/HCPCS: 36415; 86481

== ENCOUNTER 2023-03-15 13:47 | Outpatient (REF) | payer OTHER, SELFPAY | END 2023-03-15 13:48 | disposition home or self-care (01) | LOC: HO.LAB 13:47 | PROVIDERS: Visit Provider Nurse Practitioner Family | DX: R82.90 Unspecified abnormal findings in urine (principal) | CPT/HCPCS: 87086 ==

== ENCOUNTER 2023-06-07 14:40 | Outpatient (REF) | payer OTHER, SELFPAY ==
[2023-06-08 18:00] LABS: CT PCR NOT DETECTED (Not Detect.); NG PCR NOT DETECTED (Not Detect.)
[2023-06-10 13:19] LABS: BV Int Neg Control Negative (Negative); BV Int Pos Control Positive (Positive)
== END 2023-06-07 14:41 | disposition home or self-care (01) ==
LOC: HO.LNP 14:40
PROVIDERS: PCP Nurse Practitioner Family; Visit Provider Obstetrics & Gynecology
DX: Z30.432 Encounter for removal of intrauterine contraceptive device (principal); T83.32XA Displacement of intrauterine contraceptive device, initial encounter; B96.89 Other specified bacterial agents as the cause of diseases classified elsewhere; N76.0 Acute vaginitis
CPT/HCPCS: 0353U; 58301; 81025; 87480; 87510; 87660

== ENCOUNTER 2023-06-07 14:40 | Outpatient (AMB) | payer OTHER, SELFPAY ==
[2023-06-07 14:44] VITALS: BP 102/60; BMI 31.8
--- NOTE | 2023-06-07 14:44 | A.OFFVIS_ITS ---
Intake Vital Signs 06/07/23 14:44 Height 5 ft Weight 163 lb BMI 31.8 BP 102/60 Intake Visit Reasons: [employer]GER annual exam/DO NOT RS Intake Note: c/o of vaginal discharge [employer] Required: No Information Interpreted: non-clinical & clinical Clerical Adjudicator: Clerical Adjudicator Present (Marilu SCHULTZ) Accompanied by: Self / Same As Patient Allergies metronidazole [From Flagyl] Allergy (Severe, Verified 06/07/23 14:48) Hives , problems breathing Is last menstrual period known: Yes Last menstrual period: 05/23/23 HPI HPI Comments History of Present Illness Details Presenting for annual exam. Complaining of vaginal discharge associ ated with foul odor Last Pap was negative in 11/03 [facility] Medical History 26 weeks gestation of Asthma COVID-19 Depression with anxiety Early stage of Gestational diabetes Mild asthma Obesity (BMI 30.0-34.9) Renal mass, left Vitamin D deficiency Surgical History History of tooth extraction Family History Father Cancer Seizures Mother Hypertension Kidney stones Paternal Grandmother Breast cancer Diabetes mellitus Paternal Grandfather Diabetes mellitus Maternal Aunt Hypertension Other Mental health disorder Social History Household Members: None Both parents involved: No Housing: Apartment Alcohol intake: former Patient Tobacco Use Status: Never used Tobacco e-Cigarette/Vaping Use: Never Used Second Hand Smoke Exposure: No service: No Current occupational status: employed 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 Gender identity: Female Cognitive needs: No Hearing needs: No Vision needs: Yes (glasses) Female Reproductive History Menstrual Age of Menarche: 14 Date of last menstrual period: 05/23/23 control method: copper IUCD Total pregnancies: 1 Full term: 1 Number of Living Children: 1 Date of last pap smear: 10/19/21 Review of Systems Const All systems reviewed & are unremarkable except as noted in HPI and below Card Reports as per HPI Resp Reports as per HPI GI Reports as per HPI and Reports no additional complaints Reports as per HPI Physical Exam Vital Signs: Last Vital Signs BP 102/60 07/25/23 14:44 BMI result Body Mass Index 31.8 Const General: cooperative, healthy appearing and comfortable Chest Chest palpation & inspection: normal inspection of the chest and normal palpation of entire chest wall Breast/axilla inspection: normal inspection of the breasts and normal inspection of the axillae Breast/axilla palpation: normal palpation of the breasts, normal palpation of the axillae and no axillary lymphadenopathy Resp Effort & Inspection: normal respiratory effort Auscultation: clear to auscultation bilaterally Percussion: percussion normal Cardio Palpation: normal PMI Rate: regular rate Rhythm: regular rhythm Heart sounds: no murmurs and no rubs Peripheral pulses: Peripheral pulses 2+ throughout GI Inspection: Yes normal to inspection Palpation (GI): Soft to palpation, nontender, no guarding, not rigid and No hepatosplenomegaly present Percussion: Yes normal to percussion Auscultation: normal bowel sounds Rectal Exam - Female: deferred General: Yes bladder normal to palpation External Female Exam: No lesion Speculum Exam - Vagina: normal appearance of the vagina, normal palpation, normal vaginal discharge and not erythematous Speculum Exam - Cervix: normal appearance of the cervix, normal palpation and Other cervical findings present (Bottom of the IUD is at the endocervical cannot) Bimanual exam- vagina & uterus: normal bimanual exam, normal palpation, uterine size normal, bladder normal to palpation, consistency normal and normal palpation Bimanual Exam- Adnexa, other: normal adnexae, no masses and no tenderness Office Procedures IUD Insert/Removal Details Details: Counseling/Consent: After discussing with the patient the risks of the procedure including bleeding, infection, scar tissue formation, , possible injury to blood vessels or nerves, chronic arm pain, blood transfusion, and irregular unpredictable bleeding Alternative options were discussed with the patient including but not limited: Do nothing. The patient signed the consent and agreed with the plan; all questions answered. Urine test was done in the office and was negative Preop dx: Displaced ParaGard IUD for removal Op: IUD removal Post op dx: same EBL= 10 cc Procedure: The patient was put in the dorsal lithotomy position a speculum was inserted in the vagina the IUD thread identified. Using a Dara clamp the thread was grasped and the IUD pulled out with no complications. The patient tolerated the procedure well and was advised to use a different method for contraception. Discharge instructions: Instructions were given to the pt to call if temp>100.4, abdominal pain heavy vaginal bleeding, n/v occur. The patient verbalized understanding and all questions answered. This note was generated with a voice recognition program. Some errors may have been overlooked during the review of this note. Sometimes these errors may affect the content or meaning of a given sentence. [id number]-FTJ Removal Procedure code (CPT) selection complete Assessment & Plan Assessment & Plan (1) Well woman exam: Code(s): Z01.419 - Encounter for gynecological examination (general) (routine) without abnormal findings Plan: Pap smear not indicated this year. Counseled the patient about the recommended dietary allowance of 1000 mg of Calcium & 600 IU of vitamin D. The patient was instructed to perform monthly self-breast exams , to call for any changes in menstrual patterns and to schedule an annual exam in a year; all questions answered and the patient verbalized understanding. (2) IUD migration: Code(s): T83.32XA - Displacement of intrauterine contraceptive device, initial encounter Plan: Urine test done in the office was negative. Discussed the patient the finding on pelvic exam showing a displaced IUD, recommended IUD removal and plan reinsertion in few weeks, instructions given the patient to use a backup method for control till next ParaGard IUD insertion (3) Bacterial vaginosis: Code(s): N76.0 - Acute vaginitis; B96.89 - Other specified bacterial agents as the cause of diseases classified elsewhere Plan: GC and chlamydia cultures with BV panel taken. Per CDC recommendation, will screen for STI, HepBs Ag, HIV, RPR, Hep C Ab ordered. Will treat with clindamycin 2% one 5 g applicator intravaginally at bedtime x 7 days, Instructions given to the patient to refrain from sexual activity or to use condoms consistently and correctly during the BV treatment regimen, not to douch, it might increase the risk for relapse, and to call if symptoms persist or recur. Orders: Orders Hepatitis B Surface Antigen Today B96.89 - Other specified bacterial agents as the cause of diseases classified elsewhere, N76.0 - Acute vaginitis Hepatitis C Antibody Today B96.89 - Other specified bacterial agents as the cause of diseases classified elsewhere, N76.0 - Acute vaginitis HIV Ab/Ag Today B96.89 - Other specified bacterial agents as the cause of diseases classified elsewhere, N76.0 - Acute vaginitis Syphilis Screen Today B96.89 - Other specified bacterial agents as the cause of diseases classified elsewhere, N76.0 - Acute vaginitis CT NG by PCR Today Z01.419 - Encounter for gynecological examination (general) (routine) without abnormal findings Medications: New clindamycin phosphate 2% for 3 days 1 appful vaginal BEDTIME 40 grams 0RF 7 days Coding Level of Care Code Est Pt Prev Care 18-39y([id number]) Diagnoses Well woman exam Z01.419 IUD migration T83.32XA Bacterial vaginosis N76.0; B96.89 CPT Codes Details - CPT: 22439-MCL Removal ([id number])
== END 2023-06-07 15:39 | disposition home or self-care (01) ==
LOC: HO.HWS 14:40
PROVIDERS: PCP Nurse Practitioner Family; Visit Provider Obstetrics & Gynecology
DX: Z01.419 Encounter for gynecological examination (general) (routine) without abnormal findings (principal); T83.32XA Displacement of intrauterine contraceptive device, initial encounter; N76.0 Acute vaginitis; B96.89 Other specified bacterial agents as the cause of diseases classified elsewhere; Z32.02 Encounter for pregnancy test, result negative
CPT/HCPCS: 58301; 99395

== ENCOUNTER 2023-07-23 17:14 | Observation (INO) | payer OTHER, SELFPAY ==
--- NOTE | ~2023-07-23 | US_ITS ---
EXAMINATION: US OBSTETRICAL ULTRASOUND CLINICAL INFORMATION: Rule out ectopic. COMPARISON: OB ultrasound 02/12/2022. TECHNIQUE: Transabdominal and endovaginal grayscale and color Doppler ultrasonography. FINDINGS: Irregular ovoid 1.1 cm x 0.8 cm heterogeneous low echogenicity focus is present in the left adnexal region. No peripheral hyperemia is noted on color Doppler interrogation. No associated components are noted. Heterogeneous free intraperitoneal fluid is present dependently within the pelvic cul-de-sac. The right ovary measures 3.2 cm x 2.4 cm x 3.5 cm and contains a single 1.6 cm heterogeneous rounded region with no measurable internal flow. Grossly normal qualitative color flow is noted elsewhere within the right ovary. The left ovary measures 3.0 cm x 1.7 cm x 1.5 cm demonstrates qualitative normal color flow. The uterus measures approximately 6.5 cm maximum dimension. The endometrial echo complex measures 9 mm in maximum width. No intrauterine gestation is identified. US/US OB pelvic and transvaginal IMPRESSION: 1. Findings suspicious for possible ectopic . A 1.1 cm irregular ovoid region is present in the left adnexal region and may represent an ectopic . No live ectopic identified. Heterogeneous free intraperitoneal fluid is present dependently within the pelvic cul-de-sac and may represent hemoperitoneum. No intrauterine gestation or intrauterine fluid collections noted. 2. Single 1.6 cm region within the right ovary which may represent an involuting corpus luteum cyst. The ovaries are otherwise normal in appearance. This critical result was discussed with Dr. Ubaldo BEARD by telephone at 07/23/2023 10:50 PM and it was ascertained that the content and urgency of the report was understood at the time of direct communication.
--- NOTE | ~2023-07-23 | US_ITS ---
EXAMINATION: US OBSTETRICAL ULTRASOUND CLINICAL INFORMATION: Possible ectopic . Evaluate left adnexal mass and free fluid in pelvis. COMPARISON: Pelvic ultrasound from 07/23/2023 TECHNIQUE: Sonographic imaging of the pelvis is performed using transabdominal and transvaginal transducers. FINDINGS: The uterus is anteverted, anteflexed. It has normal contour and echotexture. No evidence of uterine leiomyoma. The endometrium measures 1.3 cm AP thickness (image 25/76). No gestational sac within the endometrial cavity. The right ovary is 3.4 x 2.3 x 3.1 cm. 1.8 cm corpus luteum of the right ovary is present. The left ovary is 3.1 x 2.1 x 2.3 cm and has normal sized follicles. An indeterminate 1.1 cm structure of predominantly intermediate echotexture projects posterior to the left ovary. There is no gestational sac or pole. Again noted is a small amount of pelvic free fluid that has low-level internal echoes, possibly containing blood. US/US OB pelvic and transvaginal IMPRESSION: The pelvic ultrasound findings on this follow-up exam are unchanged compared to 07/23/2023. Since the patient might be presenting at too early a stage of for sonographic detection, recommend correlation with the trend in beta-hCG values. A gestational sac might not be visible until the end of the 5th week when the serum beta-hCG levels have risen to > 1,500 - 2,000 mIU/mL. Alternatively, there could be lack of visualization of intrauterine due to recent spontaneous or perhaps a left-sided ectopic . There is a persistent indeterminate 1.1 cm echogenic focus posterior to the left ovary and small volume of pelvic free fluid.
[2023-07-23 17:17] VITALS: BP 134/92; PULSE 100; RESP 20; TEMP 36.3; O2SAT 100; BMI 30.3
--- NOTE | 2023-07-23 17:18 | ED_ITS ---
HPI - Abdominal Pain General Chief Complaint: Abdominal Pain Stated Complaint: ?Miscarriage Related Data Home Medications Medication Instructions Recorded Confirmed escitalopram oxalate 20 mg tablet 20 mg PO QAM 08/19/20 03/15/23 copper 380 square mm intrauterine intrauterine 06/07/23 device (ParaGard T 380A) Previous Rx's Medication Instructions Recorded albuterol sulfate 90 mcg/actuation 2 inh inhalation Q4-6H PRN 01/28/23 aerosol inhaler shortness of breath or wheezing #8.5 grams clindamycin phosphate 2 % vaginal 1 appful vaginal BEDTIME 7 days 06/07/23 cream #40 grams Allergies Allergy/AdvReac Type Severity Reaction Status Date / Time metronidazole [From Flagyl] Allergy Severe Hives , Verified 07/23/23 17:17 problems breathing PMFSH Past Medical History Medical History 26 weeks gestation of Asthma COVID-19 Depression with anxiety Early stage of Gestational diabetes Mild asthma Obesity (BMI 30.0-34.9) Renal mass, left Vitamin D deficiency Surgical History History of tooth extraction Family History Family History Father Cancer Seizures Mother Hypertension Kidney stones Paternal Grandmother Breast cancer Diabetes mellitus Paternal Grandfather Diabetes mellitus Maternal Aunt Hypertension Other Mental health disorder Social History Social History Household Members: None Housing: Apartment Alcohol intake: former Patient Tobacco Use Status: Never used Tobacco e-Cigarette/Vaping Use: Never Used Second Hand Smoke Exposure: No service: No Current occupational status: employed 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 Gender identity: Female Cognitive needs: No Hearing needs: No Vision needs: Yes (glasses) Physical Exam ED Vital Signs: Vital Signs - 24 hr 07/23/23 17:17 Temperature 97.3 F Pulse Rate 100 Respiratory Rate 20 Blood Pressure 134/92 H Pulse Oximetry 100 Oxygen Delivery Method Room Air BMI result Body Mass Index 30.3 Course Course Course Narrative: Rapid medical exam in triage pending full evaluation in the ER by provider for full history and physical, evaluation of imaging and labs and dispo Patient complains of worsening left side pelvic pain with some scant vaginal bleeding which started several hours ago, pain has worsened over last several hours She says her last period is several weeks overdue, denies vomiting or fever, denies dysuria Beta HCG came back positive while patient was in waiting room with results of 284 so rule out ectopic pelvic ultrasound was ordered Medical Decision Making Lab Data 07/23/23 17:29 07/23/23 17:29 Labs: Lab Results 07/23/23 Range/Units 17:29 WBC 13.9 H (4.8-10.8) X10*3/uL RBC 4.58 (4.20-5.50) X10*6/uL Hgb 13.3 (12.0-16.0) g/dl Hct 39.8 (37.0-47.0) % MCV 86.9 (80.0-98.0) fL MCH 29.0 (27.0-33.0) pg MCHC 33.4 (31.0-35.0) g/dl RDW 13.3 (11.0-16.0) % Plt Count 385 (160-400) X10*3/uL MPV 9.7 (9.4-12.3) fL Immature Gran % (Auto) 0.2 (0.0-0.4) % Neut % (Auto) 46.2 (45-73) % Lymph % (Auto) 45.4 H (20-40) % [place] % (Auto) 6.3 (2-11) % Eos % (Auto) 1.2 (0-4) % Baso % (Auto) 0.7 (0-2) % Lymph # (Auto) 6.3 H (1.2-4.9) X10*3/uL [place] # (Auto) 0.9 (0.1-1.2) X10*3/uL Eos # (Auto) 0.2 (0.0-0.4) X10*3/uL Baso # (Auto) 0.1 (0.0-0.2) X10*3/uL Abs Immat Gran (auto) 0.03 (0.00-0.03) X10*3/uL Absolute Neuts (auto) 6.4 (2.0-8.3) x10*3/uL Absolute Nucleated RBC 0.000 (0.0-0.012) X10*3/uL Nucleated RBC % (auto) 0.0 (0.0-0.2) /100WBC Smear Tech's Comments VERIFIED Sodium 138 (135-145) mmol/L Potassium 3.9 (3.3-5.1) mmol/L Chloride 107 (96-108) mmol/L Carbon Dioxide 20 L (22-29) mmol/L Anion Gap 15 (12-20) BUN 13 (9-16) mg/dL Creatinine 0.70 (0.5-1.4) mg/dL Estim Creat Clear Calc 105.6 Estimated GFR > 60 Random Glucose 102 (60-115) mg/dL Calcium 9.4 (8.4-10.2) mg/dL Beta HCG, Quant 284 mIU/mL Discharge Plan Discharge Prescriptions: No Action escitalopram oxalate 20 mg tablet 20 mg PO QAM albuterol sulfate 90 mcg/actuation HFA aerosol inhaler 2 inh inhalation Q4-6H PRN (Reason: shortness of breath or wheezing) Qty: 8.5 0RF ParaGard T 380A 380 square mm intrauterine device intrauterine clindamycin phosphate 2 % cream 1 appful vaginal BEDTIME 7 Days Qty: 40 0RF Rx Instructions: for 3 days
[2023-07-23 17:36] LABS: Basophils Absolute Auto 0.1 X10*3/uL (0.0-0.2); Basophils Percent Auto 0.7 % (0-2); Eosinophils Absolute Auto 0.2 X10*3/uL (0.0-0.4); Eosinophils Percent Auto 1.2 % (0-4); Hematocrit 39.8 % (37.0-47.0); Hemoglobin 13.3 g/dl (12.0-16.0); Imm Gran Abs Auto 0.03 X10*3/uL (0.00-0.03); Imm Gran Pct Auto 0.2 % (0.0-0.4); Lymphocytes Percent Auto 45.4 % (20-40); MANUAL DIFF FLAG SCAN; Mean Corpuscular HGB Conc 33.4 g/dl (31.0-35.0); Mean Corpuscular Volume 86.9 fL (80.0-98.0); Mean Platelet Volume 9.7 fL (9.4-12.3); Monocytes Absolute Auto 0.9 X10*3/uL (0.1-1.2); Monocytes Percent Auto 6.3 % (2-11); Neutrophils Absolute Auto 6.4 x10*3/uL (2.0-8.3); Neutrophils Percent Auto 46.2 % (45-73); Platelet Count 385 X10*3/uL (160-400); Red Blood Count 4.58 X10*6/uL (4.20-5.50); Red Cell Distribution Width 13.3 % (11.0-16.0); SCAN SMEAR FLAG 1; White Blood Count 13.9 X10*3/uL (4.8-10.8)
[2023-07-23 17:38] LABS: Lymphocytes Absolute Auto 6.3 X10*3/uL (1.2-4.9)
[2023-07-23 17:49] LABS: Anion Gap 15 (12-20); Blood Urea Nitrogen 13 mg/dL (9-16); Calcium 9.4 mg/dL (8.4-10.2); Carbon Dioxide 20 mmol/L (22-29); Chloride 107 mmol/L (96-108); Creatinine Clr Calc Pharmacy 105.6; Estimated Glomerular Filt Rate > 60; Glucose Random 102 mg/dL (60-115); Potassium 3.9 mmol/L (3.3-5.1); Sodium 138 mmol/L (135-145)
[2023-07-23 17:59] LABS: HCG Quantitative 284 mIU/mL
[2023-07-23 18:12] LABS: SLIDE REVIEW VERIFIED
[2023-07-23 19:47] VITALS: BP 130/79; PULSE 119; RESP 22; TEMP 37.2; O2SAT 96
[2023-07-23 20:10] LABS: Appearance Urine Clear; Color Urine Yellow; Glucose Urine UA Negative (Negative); Leukocyte Esterase Urine Trace (Negative); Nitrite Urine Negative (Negative); Specific Gravity - Urine 1.025 (1.005-1.025); UMIC TRIGGER UACC YES; Urine Blood Small (1+) (Negative); Urine Ketones Negative (Negative); Urine Protein 30 (1+) mg/dL (Neg-Trace)
[2023-07-23 20:12] LABS: UPreg QC Valid YES; Urine Pregnancy POSITIVE (NEGATIVE)
--- NOTE | 2023-07-23 20:20 | ED_ITS ---
HPI - Abdominal Pain General Chief Complaint: Abdominal Pain Stated Complaint: ?Miscarriage Time Seen by Provider: 07/23/23 20:08 History of Present Illness HPI narrative: Patient is a 27-year-old female presented today with having lower abdominal pain. Patient last menstrual period was early last month. Complaining of spotting. Cramping. Never had an ectopic . Patient had a last year. Resulted in a live . History of gestational diabetes. No history of abdominal surgery in the past. Patient is from home. There is no fever no chills. No cough no congestion or upper respiratory symptoms. Patient is from home. Related Data Home Medications Medication Instructions Recorded Confirmed escitalopram oxalate 20 mg tablet 20 mg PO QAM 08/19/20 03/15/23 copper 380 square mm intrauterine intrauterine 06/07/23 device (ParaGard T 380A) Previous Rx's Medication Instructions Recorded albuterol sulfate 90 mcg/actuation 2 inh inhalation Q4-6H PRN 01/28/23 aerosol inhaler shortness of breath or wheezing #8.5 grams clindamycin phosphate 2 % vaginal 1 appful vaginal BEDTIME 7 days 06/07/23 cream #40 grams Allergies Allergy/AdvReac Type Severity Reaction Status Date / Time metronidazole [From Flagyl] Allergy Severe Hives , Verified 07/23/23 17:17 problems breathing Review of Systems Review of Systems Positive abdominal pain in the lower abdomen Yes all other systems are reviewed and are negative PMFSH Past Medical History Medical History Gestational diabetes 26 weeks gestation of Asthma COVID-19 Early stage of Renal mass, left Vitamin D deficiency Obesity (BMI 30.0-34.9) Mild asthma Depression with anxiety Surgical History History of tooth extraction Family History Family History Father Cancer Seizures Mother Hypertension Kidney stones Paternal Grandmother Breast cancer Diabetes mellitus Paternal Grandfather Diabetes mellitus Maternal Aunt Hypertension Other Mental health disorder Social History Social History Household Members: None Housing: Apartment Alcohol intake: former Patient Tobacco Use Status: Never used Tobacco e-Cigarette/Vaping Use: Never Used Second Hand Smoke Exposure: No Advance Directives: No Advance Directives Information Provided: No service: No Current occupational status: employed 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 Oriented X3. No acute distress. Eyes: Pupils equal, round and reactive to light. ENT: Pharynx normal. Neck: Normal inspection. Neck supple. No lymph nodes noted. No crepitus CVS: Normal heart rate and rhythm. Pulses normal. Normal S1 and S2 Respiratory: No respiratory distress. Breath sounds normal. No Wheezing. No rales Abdomen: Soft and nontender. No rigidity. No distention. good BS x4 Skin: Skin warm and dry. Normal skin color. Normal skin turgor. Extremities: No lower extremity edema. Neurovascular intact to all extremities. No Lacerations. No Rash Neuro: Oriented X 3. No motor deficit. No sensory deficit. Moving all extermities. No slurred speech Medical Decision Making Medical Decision Making MDM Narrative: Patient has abdominal pain in the lower abdomen worse on the left side. No history of ectopic in the past. Patient's quant was in 250 range. An ultrasound was done. I spoke with the radiologist at 22:50 when he called me about the ultrasound results. The ultrasound result shows free fluid in the pelvis. Positive 1.1 cm left adnexal mass. Consistent with having ectopic . Immediately we contacted OBGYN on-call. Patient's blood was typed and screen. Will give additional pain medication. Dr. Alyssa Gutierrez from OBGYN came to the emergency department immediately. Evaluated the patient. Given patient an option for surgery versus observation. Patient did not want an operation at this time. Will be admitted for further monitoring. Currently in stable condition. Cannot exclude the possibility of ectopic . Patient is aware. Differential Diagnosis Intrauterine , ectopic, miscarriage, vaginal bleeding, UTI Admission/Observation Consideration of admission/observation: Escalation of care including admission/observation considered Consult Healthcare Provider Management of the patient was discussed with: Social Sciences Department Chair EYAD Lab Data MDM Lab Attestation statement: I reviewed the patient's lab results. 07/23/23 17:29 07/23/23 17:29 Labs: Lab Results 07/23/23 07/23/23 07/23/23 Range/Units 17:29 19:58 23:07 WBC 13.9 H (4.8-10.8) X10*3/uL RBC 4.58 (4.20-5.50) X10*6/uL Hgb 13.3 (12.0-16.0) g/dl Hct 39.8 (37.0-47.0) % MCV 86.9 (80.0-98.0) fL MCH 29.0 (27.0-33.0) pg MCHC 33.4 (31.0-35.0) g/dl RDW 13.3 (11.0-16.0) % Plt Count 385 (160-400) X10*3/uL MPV 9.7 (9.4-12.3) fL Immature Gran % (Auto) 0.2 (0.0-0.4) % Neut % (Auto) 46.2 (45-73) % Lymph % (Auto) 45.4 H (20-40) % [place] % (Auto) 6.3 (2-11) % Eos % (Auto) 1.2 (0-4) % Baso % (Auto) 0.7 (0-2) % Lymph # (Auto) 6.3 H (1.2-4.9) X10*3/uL [place] # (Auto) 0.9 (0.1-1.2) X10*3/uL Eos # (Auto) 0.2 (0.0-0.4) X10*3/uL Baso # (Auto) 0.1 (0.0-0.2) X10*3/uL Abs Immat Gran (auto) 0.03 (0.00-0.03) X10*3/uL Absolute Neuts (auto) 6.4 (2.0-8.3) x10*3/uL Absolute Nucleated RBC 0.000 (0.0-0.012) X10*3/uL Nucleated RBC % (auto) 0.0 (0.0-0.2) /100WBC Smear Tech's Comments VERIFIED Sodium 138 (135-145) mmol/L Potassium 3.9 (3.3-5.1) mmol/L Chloride 107 (96-108) mmol/L Carbon Dioxide 20 L (22-29) mmol/L Anion Gap 15 (12-20) BUN 13 (9-16) mg/dL Creatinine 0.70 (0.5-1.4) mg/dL Estim Creat Clear Calc 105.6 Estimated GFR > 60 Random Glucose 102 (60-115) mg/dL Calcium 9.4 (8.4-10.2) mg/dL Beta HCG, Quant 284 mIU/mL Urine Color Yellow Urine Appearance Clear Urine pH 7.0 (5.0-9.0) Ur Specific [place] 1.025 (1.005-1.025) Urine Protein 30 (1+) H (Neg-Trace) mg/dL Urine Glucose (UA) Negative (Negative) mg/dL Urine Ketones Negative (Negative) mg/dL Urine Blood Small (1+) H (Negative) Urine Nitrite Negative (Negative) Ur Leukocyte Esterase Trace H (Negative) Urine RBC 11-20 H (0-2) /HPF Urine WBC 0-5 (0-5) /HPF Ur Squamous Epith Cells 0-2 (0-2) /HPF Urine Bacteria Trace (None Seen) Hyaline Casts 0-2 (0-2) /LPF Urine Test POSITIVE H (NEGATIVE) Blood Type O Positive Antibody Screen NEGATIVE Independent Interpretation I performed an independent interpretation of an: Ultrasound Radiology Impression Discussion of test interpretation with radiology: I discussed test interpretation with the radiologist and I have reviewed the radiologist's reading. Radiologist Impression: I discussed the ultrasound finding with the radiologist at 22:50. Independent Historian Clinical information obtained from an independent historian. History obtained from or confirmed by: Spouse External Record Review External record reviewed: Office record Medications Administered Discontinued Medications Generic Name Dose Route Start Last Admin Trade Name Freq PRN Reason Stop Dose Admin Hydromorphone HCl 0.5 mg 07/23/23 22:52 07/23/23 23:19 Hydromorphone Hcl 0.5 Mg/0.5 Ml Syringe IVPUSH 07/23/23 22:53 Not Given ONCE ONE Protocol Sodium Chloride 1,000 mls @ 999 mls/hr 07/23/23 20:15 07/23/23 23:19 Ns IV 07/23/23 21:15 Infused .Q1H1M KAMERON Infusion Sodium Chloride 1,000 mls @ 999 mls/hr 07/23/23 20:15 07/23/23 23:19 Ns IV 07/23/23 21:15 Infused .Q1H1M KAMERON Infusion Critical Care Time Critical Care Time Critical Care Time: Yes Total Critical Care Time: 40 Attestation: I have personally provided 40 minutes of critical care time exclusive of time spent on separately billable procedures. Time includes review of lab data, radiology results, discussion with consultants, and monitoring for potential decompensation. Interventions were performed as documented above Discharge Plan Discharge Clinical Impression: Ectopic Patient Disposition: Admitted As Inpatient Prescriptions: No Action escitalopram oxalate 20 mg tablet 20 mg PO QAM albuterol sulfate 90 mcg/actuation HFA aerosol inhaler 2 inh inhalation Q4-6H PRN (Reason: shortness of breath or wheezing) Qty: 8.5 0RF ParaGard T 380A 380 square mm intrauterine device intrauterine clindamycin phosphate 2 % cream 1 appful vaginal BEDTIME 7 Days Qty: 40 0RF Rx Instructions: for 3 days
[2023-07-23 20:29] LABS: Bacteria Urine Trace (None Seen); Hyaline Casts Urine 0-2 /LPF (0-2); Squamous Epithelial Cell Urine 0-2 /HPF (0-2); WBC Urine 0-5 /HPF (0-5)
[2023-07-23] MEDS: 0.9 % Sodium Chloride 1,000 ML 999 ML IV ×2 (20:47→20:49)
[2023-07-23 21:49] VITALS: BP 109/67; PULSE 93; O2SAT 99
--- NOTE | 2023-07-23 23:02 | P.CONOB_ITS ---
WOOD CRAFTER - CN: HPI Data of Consult Consult date: 07/23/23 Primary Care Provider: [facility] Consult Narrative Narrative: I was consulted on Kamron Sarah who who is a 27 year old female who presented to emergency room complaining of left lower quadrant pain few days duration that got worse this morning associated with vaginal spotting. No other associated symptoms. Blood type O positive cc:: CC: OB PMFSH Past Medical History Medical History Gestational diabetes 26 weeks gestation of Asthma COVID-19 Early stage of Renal mass, left Vitamin D deficiency Obesity (BMI 30.0-34.9) Mild asthma Depression with anxiety Family History Family History Father Cancer Seizures Mother Hypertension Kidney stones Paternal Grandmother Breast cancer Diabetes mellitus Paternal Grandfather Diabetes mellitus Maternal Aunt Hypertension Other Mental health disorder Surgical History Surgical History History of tooth extraction Social History Social History Household Members: None Housing: Apartment Alcohol intake: former Patient Tobacco Use Status: Never used Tobacco e-Cigarette/Vaping Use: Never Used Second Hand Smoke Exposure: No service: No Current occupational status: employed 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 Gender identity: Female Cognitive needs: No Hearing needs: No Vision needs: Yes (glasses) Meds Allergies Allergy/AdvReac Type Severity Reaction Status Date / Time metronidazole [From Flagyl] Allergy Severe Hives , Verified 07/23/23 17:17 problems breathing Home Medications Medication Instructions Recorded Confirmed Last Taken Type albuterol sulfate 90 mcg/actuation 2 inh inhalation Q6H PRN shortness 07/24/23 07/24/23 Unknown History aerosol inhaler of breath or wheezing escitalopram oxalate 10 mg tablet 10 mg PO DAILY 07/24/23 07/24/23 07/23/23 History WOOD CRAFTER Physical Exam Vitals Vital signs: Temp Pulse Resp BP Pulse Ox O2 Del Method 99.0 F 93 22 H 109/67 99 Room Air 07/23/23 19:47 07/23/23 21:49 07/23/23 19:47 07/23/23 21:49 07/23/23 21:49 07/23/23 21:49 BMI result Body Mass Index 30.3 Abdomen Auscultation/Inspection/Palpation: Soft, Non-distended and No tenderness Female Genitalia (Pelvic) Vagina: Nontender Cervix: No cervical motion tenderness Uterus: Tender Adnexa/Parametria: Adnexal Tenderness: None WOOD CRAFTER - Results Labs 07/24/23 05:20 07/23/23 17:29 Labs: Short CBC 07/23/23 Range/Units 17:29 WBC 13.9 H (4.8-10.8) X10*3/uL Hgb 13.3 (12.0-16.0) g/dl Hct 39.8 (37.0-47.0) % Plt Count 385 (160-400) X10*3/uL BMP 07/23/23 17:29 Sodium 138 Potassium 3.9 Chloride 107 Carbon Dioxide 20 L BUN 13 Creatinine 0.70 Calcium 9.4 Urine 07/23/23 Range/Units 19:58 Urine Color Yellow Urine Appearance Clear Urine pH 7.0 (5.0-9.0) Ur Specific [place] 1.025 (1.005-1.025) Urine Protein 30 (1+) H (Neg-Trace) mg/dL Urine Glucose (UA) Negative (Negative) mg/dL Urine Test POSITIVE H (NEGATIVE) Imaging US - abdomen: Radiologist's impression: ITS Impressions Pelvic/Transvag US 07/23/23 20:38 IMPRESSION: 1. Findings suspicious for possible ectopic . A 1.1 cm irregular ovoid region is present in the left adnexal region and may represent an ectopic . No live ectopic identified. Heterogeneous free intraperitoneal fluid is present dependently within the pelvic cul-de-sac and may represent hemoperitoneum. No intrauterine gestation or intrauterine fluid collections noted. 2. Single 1.6 cm region within the right ovary which may represent an involuting corpus luteum cyst. The ovaries are otherwise normal in appearance. This critical result was discussed with Dr. Ubaldo BEARD by telephone at 07/23/2023 10:50 PM and it was ascertained that the content and urgency of the report was understood at the time of direct communication. Assessment and Plan (1) Ectopic : Status: Acute GC/CT, BV panel and Trichomonas taken. Discussed with the patient her clinical scenario, differential diagnosis includes but not limited to : early (IUP or ectopic) with ruptured ovarian cyst, possible ectopic with early possible rupture. Discussed with the patient options of treatment including inpatient observation and re evaluation in the morning, and in case the patient's pain or clinical situation gets worse will intervene surgically earlier . The other option discussed with the patient includes diagnostoc laparoscopy with laparoscopic salpingostomy possible partial salpingectomy, possible laparotomy. All the pros and cons of each approach were discussed with the patient including the advantage of observation being the benefits of avoiding surgical intervention and its complications at the risk of delaying treatment in case of ectopic with early rupture; the advantage of surgical management discussed with patient is to rule out early ectopic rupture with all its possible complications and the risks of surgical management including but not limited to: Risk of bleeding, infection, possible injury to bladder, bowel, ureter, bladder, possible injury to vessels and need for blood transfusion with all its risks including HIV, hepatitis-B and C and other blood borne pathogens, possible negative impact on future fertility. After a long discussion, with the patient and her mom on the phone, all questions were answered, the patient verbalized understanding and decided to proceed with observation. NPO. IV LR 125 cc an hour. If the patient develops worsening of her pain prior to a.m. will re-evaluate for possible surgical intervention otherwise will re-evaluate in the morning. repeat cbc and US in am Time Spent With Patient Time: Total time managing care of this patient today ____ minutes.
--- NOTE | 2023-07-23 23:15 | PC.NURSE ---
this rn and additional rn present at bedside for pelvic exam with dr hu pt tolerated well. dr hu discussed in detail treatment options for disposition with patient, pt partner, and pt mother (on telephone).
--- NOTE | 2023-07-23 23:20 | PC.NURSE ---
pt refused dilaudid. states pain is bearable would rather tylenol. dr casno made aware. tylenol not ordered at this time as pt to remain npo at this time pt transferred into OBGYN bed. awaiting consult from dr hu
[2023-07-24 01:30] VITALS: BP 98/50; PULSE 99; RESP 16; O2SAT 98
[2023-07-24] MEDS: Lactated Ringers 1,000 ML 125 ML IVCONT (01:40)
[2023-07-24 01:43] VITALS: BP 119/60; PULSE 101; RESP 17
[2023-07-24 04:47] VITALS: BP 109/64; PULSE 99; RESP 13; TEMP 37.1; O2SAT 99
--- NOTE | 2023-07-24 04:47 | MHC.EDTECH ---
Visitor with patient had fallen asleep on the chair and table. I Offered him a reclining chair, he accepted. I found one and brought it with Pillow and blankets. Assisted the Patient to the bathroom, and helped back to bed.
[2023-07-24 05:43] LABS: Hematocrit 36.4 % (37.0-47.0); Hemoglobin 12.2 g/dl (12.0-16.0); Mean Corpuscular HGB Conc 33.5 g/dl (31.0-35.0); Mean Corpuscular Hemoglobin 29.6 pg (27.0-33.0); Mean Corpuscular Volume 88.3 fL (80.0-98.0); Mean Platelet Volume 9.9 fL (9.4-12.3); Platelet Count 308 X10*3/uL (160-400); Red Blood Count 4.12 X10*6/uL (4.20-5.50); Red Cell Distribution Width 13.4 % (11.0-16.0); White Blood Count 9.6 X10*3/uL (4.8-10.8)
--- NOTE | 2023-07-24 07:40 | PM.GYNPNOP ---
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 Had mild vaginal spotting, no additional complaints. 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 Physical Exam Vitals Vital signs: Temp Pulse Resp BP Pulse Ox O2 Del Method 98.8 F 99 13 109/64 99 Room Air 07/24/23 04:47 07/24/23 04:47 07/24/23 04:47 07/24/23 04:47 07/24/23 04:47 07/24/23 04:47 BMI result Body Mass Index 30.3 Abdomen Auscultation/Inspection/Palpation: Normal bowel sounds, Soft and No tenderness PUBLICATIONS DISTRIBUTION CLERK - Prog Note: Results Labs 07/24/23 05:20 07/23/23 17:29 Labs: Laboratory Results - last 24 hr 07/23/23 07/23/23 07/23/23 17:29 19:58 23:07 WBC 13.9 H RBC 4.58 Hgb 13.3 Hct 39.8 MCV 86.9 MCH 29.0 MCHC 33.4 RDW 13.3 Plt Count 385 MPV 9.7 Immature Gran % (Auto) 0.2 Neut % (Auto) 46.2 Lymph % (Auto) 45.4 H [place] % (Auto) 6.3 Eos % (Auto) 1.2 Baso % (Auto) 0.7 Lymph # (Auto) 6.3 H [place] # (Auto) 0.9 Eos # (Auto) 0.2 Baso # (Auto) 0.1 Abs Immat Gran (auto) 0.03 Absolute Neuts (auto) 6.4 Absolute Nucleated RBC 0.000 Nucleated RBC % (auto) 0.0 Smear Tech's Comments VERIFIED Sodium 138 Potassium 3.9 Chloride 107 Carbon Dioxide 20 L Anion Gap 15 BUN 13 Creatinine 0.70 Estim Creat Clear Calc 105.6 Estimated GFR > 60 Random Glucose 102 Calcium 9.4 Beta HCG, Quant 284 Urine Color Yellow Urine Appearance Clear Urine pH 7.0 Ur Specific [place] 1.025 Urine Protein 30 (1+) H Urine Glucose (UA) Negative Urine Ketones Negative Urine Blood Small (1+) H Urine Nitrite Negative Ur Leukocyte Esterase Trace H Urine RBC 11-20 H Urine WBC 0-5 Ur Squamous Epith Cells 0-2 Urine Bacteria Trace Hyaline Casts 0-2 Urine Test POSITIVE H Blood Type O Positive Antibody Screen NEGATIVE 07/24/23 05:20 WBC 9.6 RBC 4.12 L Hgb 12.2 Hct 36.4 L MCV 88.3 MCH 29.6 MCHC 33.5 RDW 13.4 Plt Count 308 MPV 9.9 Immature Gran % (Auto) Neut % (Auto) Lymph % (Auto) [place] % (Auto) Eos % (Auto) Baso % (Auto) Lymph # (Auto) [place] # (Auto) Eos # (Auto) Baso # (Auto) Abs Immat Gran (auto) Absolute Neuts (auto) Absolute Nucleated RBC 0.000 Nucleated RBC % (auto) 0.0 Smear Tech's Comments Sodium Potassium Chloride Carbon Dioxide Anion Gap BUN Creatinine Estim Creat Clear Calc Estimated GFR Random Glucose Calcium Beta HCG, Quant Urine Color Urine Appearance Urine pH Ur Specific [place] Urine Protein Urine Glucose (UA) Urine Ketones Urine Blood Urine Nitrite Ur Leukocyte Esterase Urine RBC Urine WBC Ur Squamous Epith Cells Urine Bacteria Hyaline Casts Urine Test Blood Type Antibody Screen PUBLICATIONS DISTRIBUTION CLERK - A/P (1) Ectopic : Status: Acute Assessment and Plan: H&H stable, pelvic ultrasound repeated this morning showed the following: IMPRESSION: The pelvic ultrasound findings on this follow-up exam are unchanged compared to 07/23/2023. Since the patient might be presenting at too early a stage of for sonographic detection, recommend correlation with the trend in beta-hCG values. A gestational sac might not be visible until the end of the 5th week when the serum beta-hCG levels have risen to > 1,500 - 2,000 mIU/mL. Alternatively, there could be lack of visualization of intrauterine due to recent spontaneous or perhaps a left-sided ectopic . There is a persistent indeterminate 1.1 cm echogenic focus posterior to the left ovary and small volume of pelvic free fluid. Discussed with the patient currently situation, specifically pelvic being complete resolved, and stable H&H , no findings changed on pelvic ultrasound compared to yesterday's ultrasound. The differential diagnosis discussed with the patient included either early ectopic versus early SAB with a small possibility of normal intrauterine gestation. Given her clinical condition, pain complete resolved and normal abdominal exam, the possibility of intra-abdominal bleeding and possible early ectopic ruptured is unlikely. Options of treatment were discussed with the patient includin- Expected management for the coming 48 hours and repeat HCG with or without pelvic Ultrasound. 2- Treat as if she has tubal with methotrexate or 3- Uterine aspiration. All the pros and cons and risks and benefits of each treatment approach were discussed with the patient. 1-The advantage of expectant management were discussed with the patient, being prevention of possible exposure to teratogenicity or risk of spontaneous in case of an early normal , the risk being delayed diagnosis and treatment of ectopic and possible rupture with all its possible consequences including intra-abdominal bleed and possible . 2- Explained to the patient that the use of curettage as a diagnostic tool is limited by the potential for disruption of a viable . In addition, discussed with the patient that the sensitivity of curettage in finding chorionic villi is only 70 percent. [place] endometrial biopsy is even less sensitive than curettage for detection of villi; sensitivities reported is between 30 and 60 percent. If curettage is performed, serum HCG levels can be followed postcurettage if histopathology does not confirm the clinical impression. When an IUP has been evacuated, hCG levels should drop by at least 15 percent the day after evacuation. There might be an advantage of performing aspiration only on patients with both an HCG concentration below the discriminatory zone and a low doubling rate, since 30 percent of these patients have a nonviable intrauterine gestation, and the remainder have an ectopic . Knowing the results of aspiration avoids unnecessary methotrexate treatment of the 30 percent of patients without ectopic . 3-Furthermore discussed with the patient the 3rd option which is treatment with methotrexate without uterine aspiration. The advantage of early treatment of presumed tubal with methotrexate was discussed with the patient, including but not limited to reducing the risk of ruptured ectopic with all its potential consequences, in addition discussed with the patient methotrexate treatment risks including but not limited to, possible exposure to methotrexate to a normal intra and and increase the risk of spontaneous and congenital anomalies. The patient decided to wait 48 hours repeat HCG from previous hCG and treat accordingly. Will discharge patient home Instructions given to the patient to the importance of compliance and timely HCG follow-up in 48 hours for an early and accurate diagnosis, and to call or go to the emergency room if pain or vaginal bleeding occurs, all questions answered, the patient verbalized understanding and agreed with the plan. Follow-up in office tomorrow in a.m. with an hCG levels for further management. Time Spent With Patient Time: Total time managing care of this patient today ____ minutes.
[2023-07-24 07:58] VITALS: BP 97/43; PULSE 92; RESP 18; TEMP 37.2
--- NOTE | 2023-07-24 08:40 | PHA.MEDREC ---
Pharmacy Consult ? Medication Reconciliation Pharmacy has completed the medication reconciliation.
--- NOTE | 2023-07-24 09:41 | PC.NURSE ---
delay in hanging LR liter d/t pump stopping and needing to be restarted again.
--- NOTE | 2023-07-24 09:42 | PC.NURSE ---
on phone with pt currently.
[2023-07-24 10:04] LABS: CT PCR NOT DETECTED (Not Detect.); NG PCR NOT DETECTED (Not Detect.)
[2023-07-24 10:42] VITALS: BP 116/67; PULSE 68; RESP 18; TEMP 37.3
--- NOTE | 2023-07-24 10:50 | PC.NURSE ---
pt a&ox3. respirations even and unlabored. pt reports no pain at this time. pt reports she noticed bright red blood when urinating, aware.
[2023-07-25 12:22] LABS: BV Int Neg Control Negative (Negative); BV Int Pos Control Positive (Positive)
--- NOTE | 2024-01-24 09:27 | PM.GYNDS ---
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 Repeat ultrasound was unchanged. H&H was stable in the morning, the patient was discharged home with repeat hCG follow-up in 48 hours with the following instructions to come back to emergency room in case of pelvic pain, heavy vaginal bleeding my nausea or vomiting and follow-up in the office in 48 hours. Time spent discussing smoking cessation with patient: 3 to 10 minutes Status at Discharge Functional status at discharge: independent ambulation Overall status at discharge: patient is back to baseline Time Spent with Patient Time attestation: Total time managing care of this patient today ____ minutes. 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 Physical Exam Vitals Vital signs: Temp Pulse Resp BP Pulse Ox O2 Del Method O2 Flow Rate 99.2 F 68 18 116/67 99 Room Air 100 07/24/23 10:42 07/24/23 10:42 07/24/23 10:42 07/24/23 10:42 07/24/23 04:47 07/24/23 10:42 07/24/23 10:42 BMI result Body Mass Index 30.3 Abdomen Auscultation/Inspection/Palpation: Normal bowel sounds, Soft, Non-distended and No tenderness Discharge Plan Discharge Anticipated Discharge Date/Time: 07/24/23 12:31 Patient Disposition: Home, Self-Care Referrals: [place] [Primary Care Provider] - 1 Week Discharge Medications: Continued escitalopram oxalate 10 mg tablet 10 mg PO DAILY albuterol sulfate 90 mcg/actuation HFA aerosol inhaler 2 inh inhalation Q6H PRN (Reason: shortness of breath or wheezing) No Action terconazole 0.8 % cream 1 appful vaginal BEDTIME 3 Days Qty: 20 0RF Discharge Orders: Discharge Order (Routine); Ordered 07/24/23 Ordered By: Marquis Shah Diet: Advance to usual diet Activity on Discharge: no intercourse or strenuous exercises Stand Alone Forms: Patient Portal Discharge page Activity Restrictions/Additional Instructions: Follow-up in the office 2 more with hCG quantitative Instructions given to patient to call or come back to emergency room in case of abdominal/pelvic pain, vaginal bleeding, nausea or vomiting Care Plan Goals: Follow-up in the office 2 more with hCG quantitative Instructions given to patient to call or come back to emergency room in case of abdominal/pelvic pain, vaginal bleeding, nausea or vomiting Health Concerns: Follow-up in the office 2 more with hCG quantitative Instructions given to patient to call or come back to emergency room in case of abdominal/pelvic pain, vaginal bleeding, nausea or vomiting Plan of Treatment: Follow-up in the office 2 more with hCG quantitative Instructions given to patient to call or come back to emergency room in case of abdominal/pelvic pain, vaginal bleeding, nausea or vomiting Assessment: Follow-up in the office 2 more with hCG quantitative Instructions given to patient to call or come back to emergency room in case of abdominal/pelvic pain, vaginal bleeding, nausea or vomiting Discharge Date/Time: 07/24/23 12:34 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 TECH Discharge Summary Data Data Completed and Pending Completed studies during hospitalization: Ultrasound and H&H Pending studies at discharge: None Procedures Procedures Performed: None DS: Plan Patient/Caregiver Discharge Instructions Activity: resume usual activities as tolerated Diet: Advance to usual diet DS: Medications Discharge Medications Home Medications: Home Medications Medication Instructions Recorded Confirmed albuterol sulfate 90 mcg/actuation 2 inh inhalation Q6H PRN shortness 07/24/23 07/24/23 aerosol inhaler of breath or wheezing escitalopram oxalate 10 mg tablet 10 mg PO DAILY 07/24/23 07/24/23 Previous Rx's Medication Instructions Recorded terconazole 0.8 % vaginal cream 1 appful vaginal BEDTIME 3 days 11/23/23 #20 grams
== END 2023-07-24 12:34 | disposition home or self-care (01) ==
LOC: HO.ED 07-24 00:35 → HO.EDOVER 07-24 00:41
PROVIDERS: Physician Assistant Medical; Admitting Provider Obstetrics & Gynecology; Emergency Provider Emergency Medicine Emergency Medical Services; Visit Provider Obstetrics & Gynecology
DX: O00.90 Unspecified ectopic pregnancy without intrauterine pregnancy (principal)
CPT/HCPCS: 0353U; 36415; 76801; 76817; 80048; 81001; 81025; 84702; 85025; 85027; 86850; 86900; 86901; 87480; 87510; 87660; 96360; 96361; 99221; 99284

== ENCOUNTER → 2023-07-24 00:34 | Outpatient (BNV) | payer OTHER, SELFPAY | PROVIDERS: Admitting Provider Obstetrics & Gynecology; Emergency Provider Emergency Medicine Emergency Medical Services; Visit Provider Obstetrics & Gynecology | DX: O00.90 Unspecified ectopic pregnancy without intrauterine pregnancy (principal) | CPT/HCPCS: 99222; 99232 ==

== ENCOUNTER 2023-07-25 08:58 | Outpatient (REF) | payer OTHER, SELFPAY ==
[2023-07-25 10:20] LABS: HCG Quantitative 211 mIU/mL
[2023-07-25 10:56] LABS: HBsAGNum1 0.41 S/CO (0.00-0.99); HIV AB/AG Nonreactive (Nonreactive); HIV Num 1 0.05 S/CO (0.00-0.99); Hepatitis B Surface Antigen Negative (Negative); ~HepC Num1 0.07 S/CO (0.00-0.79); ~Hepatitis C Antibody Nonreactive (Nonreactive)
[2023-07-25 11:00] LABS: Syphilis Screen Nonreactive (Nonreactive)
== END 2023-07-25 08:59 | disposition home or self-care (01) ==
LOC: HO.LAB 08:58
PROVIDERS: Visit Provider Obstetrics & Gynecology
DX: O00.90 Unspecified ectopic pregnancy without intrauterine pregnancy (principal); N76.0 Acute vaginitis; B96.89 Other specified bacterial agents as the cause of diseases classified elsewhere
CPT/HCPCS: 36415; 84702; 86780; 86803; 87340; 87389; 99212

== ENCOUNTER 2023-07-25 09:28 | Outpatient (AMB) | payer OTHER, SELFPAY ==
[2023-07-25 09:46] VITALS: BP 104/66; BMI 30.5
--- NOTE | 2023-07-25 09:46 | A.OFFVIS_ITS ---
Intake Vital Signs 07/25/23 09:46 Height 5 ft Weight 156 lb BMI 30.5 BP 104/66 Intake Visit Reasons: HCG follow up Fly Fishing Guide Required: No Information Interpreted: non-clinical & clinical Mathematics Improvement Teacher: Mathematics Improvement Teacher Present (Marilu) Allergies metronidazole [From Flagyl] Allergy (Severe, Verified 07/25/23 09:47) Hives , problems breathing Post menopausal: No HPI HPI Comments History of Present Illness Details Presenting for ED/admission follow-up . The patient went to the emergency room on 07/23/23 with left lower quadrant pain and mild vaginal spotting, hCG was 284, pelvic ultrasound showed no IUP left 1.1 cm adnexal structure with intermediate echogenicity and minimal fluid in the cul-de-sac, the patient was kept overnight for observation, repeat pelvic ultrasound showed no change, her pain resolved, the patient was discharged home follow-up in the office repeat hCG to be done today. Since then patient doing well with minimal left lower quadrant pressure associated with my vaginal spotting/bleeding. HCG today was down to 211 from 284. Blood type is O-positive. GC/CT done yesterday were negative [facility] Medical History (Updated 07/25/23 @ 10:27 by Marquis Shah MD) Gestational diabetes 26 weeks gestation of Asthma COVID-19 Renal mass, left Vitamin D deficiency Obesity (BMI 30.0-34.9) Mild asthma Depression with anxiety Surgical History History of tooth extraction Family History Father Cancer Seizures Mother Hypertension Kidney stones Paternal Grandmother Breast cancer Diabetes mellitus Paternal Grandfather Diabetes mellitus Maternal Aunt Hypertension Other Mental health disorder Social History Household Members: None Both parents involved: No Housing: Apartment Alcohol intake: former Patient Tobacco Use Status: Never used Tobacco e-Cigarette/Vaping Use: Never Used Second Hand Smoke Exposure: No service: No Current occupational status: employed 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 Gender identity: Female Cognitive needs: No Hearing needs: No Vision needs: Yes (glasses) Female Reproductive History Menstrual Age of Menarche: 14 control method: none Date of last pap smear: 10/19/21 (negative) History of abnormal pap smear: Yes Review of Systems Const All systems reviewed & are unremarkable except as noted in HPI and below Reports as per HPI and Reports no additional complaints GI Reports no additional complaints Reports no additional complaints Physical Exam Vital Signs: Last Vital Signs BP 104/66 07/25/23 09:46 BMI result Body Mass Index 30.5 GI Palpation (GI): Soft to palpation, nontender and no guarding Assessment & Plan Assessment & Plan (1) Early stage of : Code(s): Z34.90 - Encounter for supervision of normal , unspecified, unspecified trimester Plan: Discussed with the patient the decreasing levels of HCG. Differential diagnosis discussed with the patient included either early SAB vs. early ectopic versus with an unlikely possibility of normal intrauterine gestation. Discussed with the patient the decreasing HCG values suggest a failing and may be used to monitor spontaneous resolution, but this decrease should not be considered diagnostic. A woman with decreasing HCG values could still have a possible ectopic and should be monitored until non levels are reached because rupture of an ectopic can occur while levels are decreasing or are very low. Instructions given to the patient to the importance of compliance and timely HCG follow-up in 48 hours for an early and accurate diagnosis, and to call or go to the emergency room if pain or vaginal bleeding occurs, all questions answered, the patient verbalized understanding and agreed with the plan. Instructions given the patient to go to the lab for a l repeat hCG in 48 hours and schedule Follow-up appointment in 2 days for further management. All questions answered the patient verbalized understanding and agreed with the plan Orders: Orders HCG Quantitative 07/27/23 Z34.90 - Encounter for supervision of normal , unspecified, unspecified trimester Coding Level of Care Code Est Pt Level 3 (08666) Diagnoses Early stage of Z34.90
== END 2023-07-25 11:06 | disposition home or self-care (01) ==
PROVIDERS: Visit Provider Obstetrics & Gynecology
DX: Z34.90 Encounter for supervision of normal pregnancy, unspecified, unspecified trimester (principal)
CPT/HCPCS: 99213

== ENCOUNTER 2023-07-27 08:44 | Outpatient (REF) | payer OTHER, SELFPAY ==
[2023-07-27 10:07] LABS: HCG Quantitative 96 mIU/mL
== END 2023-07-27 08:45 | disposition home or self-care (01) ==
LOC: HO.LAB 08:44
PROVIDERS: Visit Provider Obstetrics & Gynecology
DX: Z34.90 Encounter for supervision of normal pregnancy, unspecified, unspecified trimester (principal)
CPT/HCPCS: 36415; 84702; 99212

== ENCOUNTER 2023-07-27 12:49 | Outpatient (AMB) | payer OTHER, SELFPAY ==
[2023-07-27 12:54] VITALS: BP 110/62; BMI 30.3
--- NOTE | 2023-07-27 12:54 | A.OFFVIS_ITS ---
Intake Vital Signs 07/27/23 12:54 Height 5 ft Weight 155 lb BMI 30.3 BP 110/62 Intake Visit Reasons: HCG Follow up per Title Agent Required: No Accompanied by: Friend Allergies metronidazole [From Flagyl] Allergy (Severe, Verified 07/27/23 12:54) Hives , problems breathing Post menopausal: No HPI HPI Comments History of Present Illness Details Presenting for follow-up, doing well with no complaints no pelvic cramping, or pain. Minimal vaginal bleeding and no other concerns PFSH Medical History Gestational diabetes 26 weeks gestation of Asthma COVID-19 Renal mass, left Vitamin D deficiency Obesity (BMI 30.0-34.9) Mild asthma Depression with anxiety Surgical History History of tooth extraction Family History Father Cancer Seizures Mother Hypertension Kidney stones Paternal Grandmother Breast cancer Diabetes mellitus Paternal Grandfather Diabetes mellitus Maternal Aunt Hypertension Other Mental health disorder Social History Household Members: None Both parents involved: No Housing: Apartment Alcohol intake: former Patient Tobacco Use Status: Never used Tobacco e-Cigarette/Vaping Use: Never Used Second Hand Smoke Exposure: No service: No Current occupational status: employed 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 Gender identity: Female Cognitive needs: No Hearing needs: No Vision needs: Yes (glasses) Female Reproductive History Menstrual Age of Menarche: 14 control method: none Date of last pap smear: 10/19/21 (negative) History of abnormal pap smear: Yes Review of Systems Const All systems reviewed & are unremarkable except as noted in HPI and below Reports as per HPI and Reports no additional complaints GI Reports no additional complaints Reports no additional complaints Assessment & Plan Assessment & Plan (1) Early stage of : Code(s): Z34.90 - Encounter for supervision of normal , unspecified, unspecified trimester Plan: Discussed with the patient the results of her hCG dropping from 211 down to 96. Discussed with the patient the decreasing levels of HCG. Differential diagnosis discussed with the patient included either early SAB vs. early ectopic versus with an unlikely possibility of normal intrauterine gestation. Discussed with the patient the decreasing HCG values suggest a failing and may be used to monitor spontaneous resolution, but this decrease should not be considered diagnostic. A woman with decreasing HCG values could still have a possible ectopic and should be monitored until non levels are reached because rupture of an ectopic can occur while levels are decreasing or are very low. Signs and symptoms of incomplete were discussed with the patient, Instructions given to the patient to the importance of compliance and timely HCG follow-up every 48 hours for an early and accurate diagnosis, and to call or go to the emergency room if pain or vaginal bleeding occurs, all questions answered, the patient verbalized understanding and agreed with the plan. Will repeat hCG every 48 hours and instructions given the patient to schedule a Follow-up appointment in 5 days. All questions answered the patient verbalized understanding and agreed with the plan Orders: Orders HCG Quantitative 07/29/23 Z34.90 - Encounter for supervision of normal pre gnancy, unspecified, unspecified trimester HCG Quantitative 08/01/23 Z34.90 - Encounter for supervision of normal , unspecified, unspecified trimester Coding Level of Care Code Est Pt Level 3 (63204) Diagnoses Early stage of Z34.90
== END 2023-07-27 13:13 | disposition home or self-care (01) ==
PROVIDERS: Visit Provider Obstetrics & Gynecology
DX: Z34.90 Encounter for supervision of normal pregnancy, unspecified, unspecified trimester (principal)
CPT/HCPCS: 99213

== ENCOUNTER 2023-07-29 08:51 | Outpatient (REF) | payer OTHER, SELFPAY ==
[2023-07-29 09:41] LABS: HCG Quantitative 40 mIU/mL
== END 2023-07-29 08:52 | disposition home or self-care (01) ==
LOC: HO.LAB 08:51
PROVIDERS: PCP Nurse Practitioner Family; Visit Provider Obstetrics & Gynecology
DX: Z34.90 Encounter for supervision of normal pregnancy, unspecified, unspecified trimester (principal)
CPT/HCPCS: 36415; 84702

== ENCOUNTER 2023-08-01 09:04 | Outpatient (REF) | payer OTHER, SELFPAY ==
[2023-08-01 10:41] LABS: HCG Quantitative 12 mIU/mL
== END 2023-08-01 09:05 | disposition home or self-care (01) ==
LOC: HO.LAB 09:04
PROVIDERS: PCP Nurse Practitioner Family; Visit Provider Obstetrics & Gynecology
DX: O03.9 Complete or unspecified spontaneous abortion without complication (principal)
CPT/HCPCS: 36415; 84702; 99212

== ENCOUNTER 2023-08-01 13:57 | Outpatient (AMB) | payer OTHER, SELFPAY ==
--- NOTE | 2023-08-01 13:59 | A.OFFVIS_ITS ---
Intake Vital Signs 08/01/23 14:01 Height 5 ft Weight 154 lb 5.177 oz BMI 30.1 BP 110/68 Intake Visit Reasons: HCG Follow up/per Dr. Shah Tax Technician Required: No Information Interpreted: non-clinical & clinical Accompanied by: Self / Same As Patient Allergies metronidazole [From Flagyl] Allergy (Severe, Verified 08/01/23 14:02) Hives , problems breathing HPI HPI Comments History of Present Illness Details Presenting for follow-up, doing well with no complaints no pelvic cramping, or pain. Minimal vaginal bleeding and no other concerns. hCG done today was 12 PFSH Medical History Gestational diabetes 26 weeks gestation of Asthma COVID-19 Renal mass, left Vitamin D deficiency Obesity (BMI 30.0-34.9) Mild asthma Depression with anxiety Surgical History History of tooth extraction Family History Father Cancer Seizures Mother Hypertension Kidney stones Paternal Grandmother Breast cancer Diabetes mellitus Paternal Grandfather Diabetes mellitus Maternal Aunt Hypertension Other Mental health disorder Social History Household Members: None Both parents involved: No Housing: Apartment Alcohol intake: former Patient Tobacco Use Status: Never used Tobacco e-Cigarette/Vaping Use: Never Used Second Hand Smoke Exposure: No service: No Current occupational status: employed 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 Gender identity: Female Cognitive needs: No Hearing needs: No Vision needs: Yes (glasses) Female Reproductive History Menstrual Age of Menarche: 14 Review of Systems Const All systems reviewed & are unremarkable except as noted in HPI and below Reports as per HPI and Reports no additional complaints GI Reports no additional complaints Reports no additional complaints Physical Exam Vital Signs: Last Vital Signs BP 110/68 08/01/23 14:01 BMI result Body Mass Index 30.1 GI Palpation (GI): Soft to palpation and nontender Assessment & Plan Assessment & Plan (1) Complete : Code(s): O03.9 - Complete or unspecified spontaneous without complication Plan: Discussed with the patient the results of her hCG done to 12 repeat hCG in 10 days to followed down to non levels. (2) Family planning: Code(s): Z30.09 - Encounter for other general counseling and advice on contraception Plan: Discussed with the patient the different options of control including control pills/Nuvaring, DMPA, different types of IUD ?s. All the pros, cons, risks and benefits of each were discussed with the patient. The patient decided to go ahead with IUD, so a more detailed discussion was carried on including types (Progesterone, Copper), mechanism of action, risks (infection, uterine perforation, failure with ectopic , septic AB, dysmenorrhea with Paraguard, others) benefits (efficient contraceptive method, hypo menorrhea with Progesterone IUD, others), the patient decided to proceed with ParaGard IUD. GC/CG were taken a week ago were negative and the patient was asked to call day one of next cycle for IUD insertion, meanwhile instructions given the patient use a backup method for control to prevent , all questions answered the patient verbalized understanding and agreed with the plan. Orders: Orders HCG Quantitative 10 Days O03.9 - Complete or unspecified spontaneous without complication Coding Level of Care Code Est Pt Level 3 (37067) Diagnoses Complete O03.9 Family planning Z30.09
[2023-08-01 14:01] VITALS: BP 110/68; BMI 30.1
== END 2023-08-01 14:14 | disposition home or self-care (01) ==
PROVIDERS: Visit Provider Obstetrics & Gynecology
DX: O03.9 Complete or unspecified spontaneous abortion without complication (principal); Z30.09 Encounter for other general counseling and advice on contraception
CPT/HCPCS: 99213

== ENCOUNTER 2023-08-02 13:42 | Outpatient (AMB) | payer OTHER, SELFPAY ==
--- NOTE | 2023-08-02 13:40 | A.OFFVIS_ITS ---
Intake Vital Signs 08/02/23 13:51 Height 5 ft Weight 154 lb 5.177 oz BMI 30.1 BP 114/66 Intake Visit Reasons: Paragard Insertion Booky Required: No Information Interpreted: non-clinical & clinical Rounding And Backing Machine Operator: Rounding And Backing Machine Operator Present (Marilu SCHULTZ) Accompanied by: Self / Same As Patient Allergies metronidazole [From Flagyl] Allergy (Severe, Verified 08/02/23 13:52) Hives , problems breathing HPI HPI Comments History of Present Illness Details Presenting for ParaGard IUD insertion. Patient has not had unprotected intercourse since her SAB. Last hCG was history 12. Last GC and chlamydia were negative on 07/[facility] Medical History Gestational diabetes 26 weeks gestation of Asthma COVID-19 Renal mass, left Vitamin D deficiency Obesity (BMI 30.0-34.9) Mild asthma Depression with anxiety Surgical History History of tooth extraction Family History Father Cancer Seizures Mother Hypertension Kidney stones Paternal Grandmother Breast cancer Diabetes mellitus Paternal Grandfather Diabetes mellitus Maternal Aunt Hypertension Other Mental health disorder Social History Household Members: None Both parents involved: No Housing: Apartment Alcohol intake: former Patient Tobacco Use Status: Never used Tobacco e-Cigarette/Vaping Use: Never Used Second Hand Smoke Exposure: No service: No Current occupational status: employed 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 The patient has been having vaginal spotting since SAB, no history of unprotected intercourse since then, Urine test was done in the office and was negative; All the contraindications were excluded. The following possible complications were discussed with the patient: Intrauterine , Ectopic , Sepsis, Pelvic Infection, Irregular Bleeding, Perforation, Expulsion. The possible adverse effects were discussed with the patient including but not limited to: increased uterine bleeding, dysmenorrhea , others Alternative options were discussed with the patient including but not limited: control pills, patch, NuvaRing, Depo-medroxyprogesterone acetate, Nexplanon, copper IUD, sterilization, vasectomy, others The procedure was explained in detail to patient , at the end patient signed the informed consent obtained. Urine test was done in the office and was negative A no touch technique was used throughout the procedure. A speculum was placed into vagina and cervix was cleaned with betadine). A tenaculum was placed. A plastic sound was advanced through the external and internal os until it reached the fundus of the uterus, the depth was 7 cm. The sound was then withdrawn. The ParaGard IUD was loaded in a sterile manner and advanced into position. The string was visualized and cut to 3 cm. Tenaculum site hemostatic. All instr uments removed from vagina. Patient tolerated the procedure well. NO complications were noted. Patient was instructed to call for fever over 100.4, significant pain unrelieved by Motrin, IUD expulsion, heavy bleeding, or abnormal discharge. In addition, the following clinical considerations were discussed with the patient to call for removal: Unexplained fever , or suspected , Pelvic pain or pain during sex ,HIV positive seroconversion in herself or her partner , Possible exposure to sexually transmitted infections Unusual vaginal discharge or genital sores , severe vaginal bleeding or bleeding that lasts a long time, or if she misses a menstrual period, Inability to feel IUD s threads Counseled the patient that the IUD does not protect against STI's, recommended use of condoms for the first 7 days post insertion and explained to the patient that condoms are recommended for patients at risk for sexually transmitted infections. Follow up appointment made for 6 weeks following insertion. This note was generated with a voice recognition program. Some errors may have been overlooked during the review of this note. Sometimes these errors may affect the content or meaning of a given sentence. [id number]-[id number] Insertion Procedure code (CPT) selection complete Office Meds ParaGard T 380A 380 square mm intrauterine device Performing Provider: Marquis Shah MD Performing Location: [facility] [place] [facility] [place] [facility] Documented (not given) by: Marquis Shah MD on 08/02/23 13:58 Dose Route Admin Location Dispensed Lot Number Expiration Date NDC Double Needle Operator 1 device intrauterine ea Assessment & Plan Assessment & Plan (1) Encounter for IUD insertion: Code(s): Z30.430 - Encounter for insertion of intrauterine contraceptive device Plan: ParaGard IUD insertion done, see procedure note Orders: Orders AMB IUD Insertion/Removal - Patient Supply Today Z30.430 - Encounter for insertion of intrauterine contraceptive device Medications: New ParaGard T 380A (copper) 1 device intrauterine ONCE 1 ea 0RF NS Z30.430 - Encounter for insertion of intrauterine contraceptive device Coding Level of Care Code Procedure Only Diagnoses Encounter for IUD insertion Z30.430 CPT Codes Details - CPT: 64028-LOG Insertion ([id number])
[2023-08-02 13:51] VITALS: BP 114/66; BMI 30.1
== END 2023-08-02 14:02 | disposition home or self-care (01) ==
LOC: HO.HWS 13:42
PROVIDERS: PCP Nurse Practitioner Family; Visit Provider Obstetrics & Gynecology
DX: Z30.430 Encounter for insertion of intrauterine contraceptive device (principal)
CPT/HCPCS: 58300

== ENCOUNTER → 2023-08-02 13:42 | Outpatient (BNVA) | payer OTHER, SELFPAY | PROVIDERS: PCP Nurse Practitioner Family; Visit Provider Obstetrics & Gynecology | DX: Z30.430 Encounter for insertion of intrauterine contraceptive device (principal) | CPT/HCPCS: 58300; J7300 ==

== ENCOUNTER 2024-01-09 15:35 | Outpatient (AMB) | payer OTHER, SELFPAY ==
[2024-01-09 15:45] VITALS: BMI 30.1
--- NOTE | 2024-01-09 15:45 | A.OFFVIS_ITS ---
Intake Vital Signs 01/09/24 15:45 Height 5 ft Weight 154 lb 5.177 oz BMI 30.1 Intake Visit Reasons: IUD check Allergies metronidazole [From Flagyl] Allergy (Severe, Verified 08/02/23 13:52) Hives , problems breathing HPI HPI Comments History of Present Illness0 Details The patient is presenting for IUD check after 1 st period following IUD insertion. The patient has no complaints periods are normal, not painful, and flow is normal. [facility] Medical History Gestational diabetes 26 weeks gestation of Asthma COVID-19 Renal mass, left Vitamin D deficiency Obesity (BMI 30.0-34.9) Mild asthma Depression with anxiety Surgical History History of tooth extraction Family History Father Cancer Seizures Mother Hypertension Kidney stones Paternal Grandmother Breast cancer Diabetes mellitus Paternal Grandfather Diabetes mellitus Maternal Aunt Hypertension Other Mental health disorder Social History Household Members: None Both parents involved: No Housing: Apartment Alcohol intake: former Patient Tobacco Use Status: Never used Tobacco e-Cigarette/Vaping Use: Never Used Second Hand Smoke Exposure: No service: No Current occupational status: employed 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 Gender identity: Female Cognitive needs: No Hearing needs: No Vision needs: Yes (glasses) Female Reproductive History Menstrual Age of Menarche: 14 Review of Systems Const All systems reviewed & are unremarkable except as noted in HPI and below Physical Exam General: Yes no CVA tenderness External Female Exam: normal external appearance and normal appearance of the urethra Speculum Exam - Vagina: normal appearance of the vagina, normal palpation, no lesions and no masses Speculum Exam - Cervix: normal appearance of the cervix, normal palpation, no lesions, no masses, nontender and Other cervical findings present (IUD string seen) Bimanual exam- vagina & uterus: normal bimanual exam, normal palpation, uterine size normal, normal palpation, uterine shape normal, No Cervical tenderness present and non-tender Bimanual Exam- Adnexa, other: normal adnexae Back/Spine/Pelvis Back: no CVA tenderness Assessment & Plan Assessment & Plan (1) IUD check up: Code(s): Z30.431 - Encounter for routine checking of intrauterine contraceptive device Plan: UPT done in the office was negative. Discussed with the patient the finding on physical exam, IUD string in place, the patient was reassured. Instructions given to patient to call in case of temperature above 100.4, severe cramping/pelvic pain, abnormal discharge or abnormal uterine bleeding or if she misses her. Otherwise follow-up at her annual exam appointment. All questions answered, the patient verbalized understanding. Coding Level of Care Code Est Pt Level 3 (75374) Diagnoses IUD check up Z30.431
== END 2024-01-09 15:55 | disposition home or self-care (01) ==
LOC: HO.HWS 15:35
PROVIDERS: PCP Nurse Practitioner Family; Visit Provider Obstetrics & Gynecology
DX: Z30.431 Encounter for routine checking of intrauterine contraceptive device (principal)
CPT/HCPCS: 99213

== ENCOUNTER → 2024-01-09 15:35 | Outpatient (BNVA) | payer OTHER, SELFPAY | PROVIDERS: PCP Nurse Practitioner Family; Visit Provider Obstetrics & Gynecology | DX: Z30.431 Encounter for routine checking of intrauterine contraceptive device (principal) | CPT/HCPCS: 99212 ==

== ENCOUNTER 2024-01-15 12:27 | Emergency (ER) | payer OTHER, SELFPAY ==
--- NOTE | ~2024-01-15 | US_ITS ---
EXAMINATION: US PELVIS CLINICAL INFORMATION: Leg pain COMPARISON: None available. TECHNIQUE: Ultrasound of the pelvis is performed using both transabdominal and transvaginal transducers along with Doppler. Transvaginal imaging is performed due to inadequate visualization transabdominally. FINDINGS: Uterus: The uterus is anteverted and measures 8 x 4 x 4.3 cm. There is an IUD in the uterus in satisfactory position. The endometrium does not appear thickened.. The uterus is smooth in contour and has normal myometrial echogenicity. No visible fibroid. Small nabothian cysts in the cervix. Adnexa: Both ovaries are visualized. There is normal color flow to the adnexa. There is no ovarian torsion. There is a small amount of fluid in the pelvis. Right ovary measures 3.2 x 1.8 x 2.5 cm. Left ovary measures 3 x 2 x 2.7 cm. US/US pelvic ovarian doppler IMPRESSION: IUD in the uterus satisfactory position otherwise unremarkable exam.
--- NOTE | ~2024-01-15 | US_ITS ---
EXAMINATION: US PELVIS CLINICAL INFORMATION: Leg pain COMPARISON: None available. TECHNIQUE: Ultrasound of the pelvis is performed using both transabdominal and transvaginal transducers along with Doppler. Transvaginal imaging is performed due to inadequate visualization transabdominally. FINDINGS: Uterus: The uterus is anteverted and measures 8 x 4 x 4.3 cm. There is an IUD in the uterus in satisfactory position. The endometrium does not appear thickened.. The uterus is smooth in contour and has normal myometrial echogenicity. No visible fibroid. Small nabothian cysts in the cervix. Adnexa: Both ovaries are visualized. There is normal color flow to the adnexa. There is no ovarian torsion. There is a small amount of fluid in the pelvis. Right ovary measures 3.2 x 1.8 x 2.5 cm. Left ovary measures 3 x 2 x 2.7 cm. US/US pelvic and transvaginal IMPRESSION: IUD in the uterus satisfactory position otherwise unremarkable exam.
--- NOTE | ~2024-01-15 | CT_ITS ---
EXAMINATION: CT ABDOMEN AND PELVIS WITHOUT CONTRAST CLINICAL INFORMATION: CT of 07/16/2021 COMPARISON: None available. TECHNIQUE: Multidetector volumetric imaging was performed from the superior aspect of the liver through the pubic symphysis. Sagittal and coronal reformatted images were obtained on the technologist's workstation. This CT examination was performed using dose optimization techniques as appropriate, variously including the following: *Automated exposure control *Adjustment of mA and/or kV according to patient size (this includes techniques or standardized protocols for targeted exams where dose is matched to indication/reason for exam; i.e. extremities or head) *Use of iterative reconstruction technique DLP: 370 mGy-cm FINDINGS: LUNG BASES: The visualized lung bases are unremarkable. LIVER, GALLBLADDER, AND BILIARY TREE: The liver is normal in size, shape, and attenuation. No focal hepatic lesion or biliary ductal dilatation is present. The gallbladder is unremarkable with no evidence of radiopaque gallstones, gallbladder wall thickening, or obvious pericholecystic inflammatory changes. PANCREAS: Unremarkable. SPLEEN: Unremarkable. ADRENAL GLANDS: Unremarkable. KIDNEYS AND URETERS: Both kidneys demonstrate clusters of pyramidal medullary calcification suggestive of medullary sponge kidney. Infrarenal calculi measure up to 4 mm in the lower pole of the right kidney and 3 mm in the midpole the left kidney. Mild to moderate left hydronephrosis is evident to the level of a 4 mm calcification at the left ureteropelvic junction. The left ureter distally is collapsed. BLADDER: Unremarkable. GASTROINTESTINAL TRACT: The small and large bowel are unremarkable. The appendix is nondilated but contains an appendicolith.. ABDOMINAL WALL: No significant hernia is appreciated. LYMPH NODES: Normal. VASCULAR: Unremarkable. PELVIC VISCERA: There is an intrauterine contraceptive device. There are no adnexal masses. OSSEOUS STRUCTURES: Unremarkable. CT/CT abdomen pelvis wo IV con IMPRESSION: 1. Bilateral medullary pyramidal calcification suggestive of medullary sponge kidney, with bilateral intrarenal calculi. 2. Moderate left hydronephrosis to the level of a 4 mm calcification at the left ureteropelvic junction. 3. Appendicolith within the appendix but no ancillary signs of acute appendicitis. Note that an appendicolith is a risk factor and can be associated with appendicitis. Fleischner guidelines were followed.
[2024-01-15 12:44] VITALS: BP 148/77; PULSE 95; RESP 16; TEMP 36.6; O2SAT 100; BMI 27.3
--- NOTE | 2024-01-15 12:46 | ED.GENADULT ---
HPI - General Adult General Chief complaint: Abdominal Pain Stated complaint: Sharp abd pain left side Time Seen by Provider: 01/15/24 16:12 Source: patient Mode of arrival: ambulatory Limitations: no limitations History of Present Illness HPI narrative: Patient no significant past medical kidney stone noticed sudden onset of pain in the left flank area yesterday evening got worse earlier today with vomiting few times no pain is in the left lower abdomen no fever no chills no hematuria no urine symptoms patient mother does have history of kidney stone and medullary sponge kidney but patient never had any kidney stone in the past Related Data Home Medications Medication Instructions Recorded Confirmed albuterol sulfate 90 mcg/actuation 2 inh inhalation Q6H PRN shortness 07/24/23 07/24/23 aerosol inhaler of breath or wheezing escitalopram oxalate 10 mg tablet 10 mg PO DAILY 07/24/23 07/24/23 Previous Rx's Medication Instructions Recorded terconazole 0.8 % vaginal cream 1 appful vaginal BEDTIME 3 days 11/23/23 #20 grams Allergies Allergy/AdvReac Type Severity Reaction Status Date / Time metronidazole [From Flagyl] Allergy Severe Hives , Verified 08/02/23 13:52 problems breathing Review of Systems Review of Systems: Yes all other systems are reviewed and are negative PMFSH Past Medical History Medical History Gestational diabetes 26 weeks gestation of Asthma COVID-19 Renal mass, left Vitamin D deficiency Obesity (BMI 30.0-34.9) Mild asthma Depression with anxiety Surgical History History of tooth extraction Family History Family History Father Cancer Seizures Mother Hypertension Kidney stones Paternal Grandmother Breast cancer Diabetes mellitus Paternal Grandfather Diabetes mellitus Maternal Aunt Hypertension Other Mental health disorder Social History Social History Household Members: None Housing: Apartment Alcohol intake: former Patient Tobacco Use Status: Never used Tobacco e-Cigarette/Vaping Use: Never Used Second Hand Smoke Exposure: No Advance Directives: No Advance Directives Information Provided: No service: No Current occupational status: employed 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 Oriented X3. In moderate distress Eyes: No pallor ENT: Pharynx normal. Oral Mucosa moist Neck: Normal inspection. Neck supple. CVS: Normal heart rate and rhythm. Pulses normal. Respiratory: No respiratory distress. Equal air entry bilateral, Abdomen: Soft and tenderness in left mid abdomen no guarding or rebound tenderness Bowel sounds are present, no mass palpable, mild left CVA tenderness Skin: Skin warm and dry. Normal skin color. Normal skin turgor. Extremities: No lower extremity edema. No calf tenderness Neuro: Oriented X 3. Course Course Course Narrative: RME- 28 year old female presents for evaluation of left lower abdominal pain/pelvic pain since last night. Denies flank pain or urinary symptoms. Last menstrual period was 2 weeks ago. Plan for labs and pelvic ultrasound. Medications Administered Discontinued Medications Generic Name Dose Route Start Last Admin Trade Name Freq PRN Reason Stop Dose Admin Sodium Chloride 1,000 mls @ 999 mls/hr 01/15/24 16:42 01/15/24 19:09 Ns IV 01/15/24 17:42 Infused .Q1H1M ONE Infusion Ketorolac Tromethamine 30 mg 01/15/24 16:42 01/15/24 17:03 Ketorolac Tromethamine 30 Mg/Ml Vial IVPUSH 01/15/24 16:43 30 mg ONCE ONE Administration Morphine Sulfate 4 mg 01/15/24 16:42 01/15/24 17:03 Morphine Sulfate 4 Mg/Ml Cartridge IVPUSH 01/15/24 16:43 Not Given ONCE ONE Protocol Ondansetron HCl 4 mg 01/15/24 16:42 01/15/24 17:03 Ondansetron Hcl 4 Mg/2 Ml Vial IVPUSH 01/15/24 16:43 Not Given ONCE ONE Tamsulosin HCl 0.4 mg 01/15/24 18:50 01/15/24 19:08 Tamsulosin Hcl 0.4 Mg Capsule PO 01/15/24 18:51 0.4 mg ONCE ONE Administration Medical Decision Making Medical Decision Making [facility] Narrative: Patient with left renal colic with 4 mm distal ureteric stone with mild hydronephrosis patient felt better after IV fluids went to the bathroom and passed small amount of likely has stone after that patient feeling much better no pain at this time patient does have medullary sponge kidney likely the cause of from the stone will discharge patient home advised to follow with PCP Lab Data [facility] Lab Attestation statement: I reviewed the patient's lab results. 01/15/24 13:04 01/15/24 13:04 Labs: Lab Results 01/15/24 Range/Units 13:04 WBC 14.0 H (4.8-10.8) X10*3/uL RBC 4.38 (4.20-5.50) X10*6/uL Hgb 12.9 (12.0-16.0) g/dl Hct 38.7 (37.0-47.0) % MCV 88.4 (80.0-98.0) fL MCH 29.5 (27.0-33.0) pg MCHC 33.3 (31.0-35.0) g/dl RDW 13.4 (11.0-16.0) % Plt Count 365 (160-400) X10*3/uL MPV 9.6 (9.4-12.3) fL Immature Gran % (Auto) 0.2 (0.0-0.4) % Neut % (Auto) 63.9 (45-73) % Lymph % (Auto) 28.9 (20-40) % Campbell % (Auto) 5.4 (2-11) % Eos % (Auto) 1.0 (0-4) % Baso % (Auto) 0.6 (0-2) % Lymph # (Auto) 4.0 (1.2-4.9) X10*3/uL Campbell # (Auto) 0.8 (0.1-1.2) X10*3/uL Eos # (Auto) 0.1 (0.0-0.4) X10*3/uL Baso # (Auto) 0.1 (0.0-0.2) X10*3/uL Abs Immat Gran (auto) 0.03 (0.00-0.03) X10*3/uL Absolute Neuts (auto) 8.9 H (2.0-8.3) x10*3/uL Absolute Nucleated RBC 0.000 (0.0-0.012) X10*3/uL Nucleated RBC % (auto) 0.0 (0.0-0.2) /100WBC Sodium 141 (135-145) mmol/L Potassium 3.1 L (3.3-5.1) mmol/L Chloride 103 (96-108) mmol/L Carbon Dioxide 25 (22-29) mmol/L Anion Gap 16 (12-20) BUN 13 (9-16) mg/dL Creatinine 0.72 (0.5-1.4) mg/dL Estim Creat Clear Calc 96.7 Estimated GFR > 60 Random Glucose 105 (60-115) mg/dL Calcium 9.0 (8.4-10.2) mg/dL Beta HCG, Quant < 2 mIU/mL Independent Interpretation I performed an independent interpretation of an: CT Scan Radiology Impression Discussion of test interpretation with radiology: I have reviewed the radiologist's reading. Discharge Plan Discharge Clinical Impression: Calculus of distal left ureter Patient Disposition: Home, Self-Care Instructions: Ureteral Stones (ED) Additional Instructions: Drink plenty of fluid you Already passed the stone Follow-up with urologist Prescriptions: No Action terconazole 0.8 % cream 1 appful vaginal BEDTIME 3 Days Qty: 20 0RF escitalopram oxalate 10 mg tablet 10 mg PO DAILY albuterol sulfate 90 mcg/actuation HFA aerosol inhaler 2 inh inhalation Q6H PRN (Reason: shortness of breath or wheezing) Interventions: ED Discharge Assessment Last Done: 01/15/24 20:07 Discharge Date/Time: 01/15/24 20:08
[2024-01-15 13:08] LABS: MANUAL DIFF FLAG NO
[2024-01-15 13:10] LABS: Basophils Absolute Auto 0.1 X10*3/uL (0.0-0.2); Basophils Percent Auto 0.6 % (0-2); Eosinophils Absolute Auto 0.1 X10*3/uL (0.0-0.4); Hematocrit 38.7 % (37.0-47.0); Hemoglobin 12.9 g/dl (12.0-16.0); Imm Gran Abs Auto 0.03 X10*3/uL (0.00-0.03); Imm Gran Pct Auto 0.2 % (0.0-0.4); Lymphocytes Percent Auto 28.9 % (20-40); Mean Corpuscular HGB Conc 33.3 g/dl (31.0-35.0); Mean Corpuscular Hemoglobin 29.5 pg (27.0-33.0); Mean Corpuscular Volume 88.4 fL (80.0-98.0); Mean Platelet Volume 9.6 fL (9.4-12.3); Monocytes Absolute Auto 0.8 X10*3/uL (0.1-1.2); Monocytes Percent Auto 5.4 % (2-11); Neutrophils Absolute Auto 8.9 x10*3/uL (2.0-8.3); Neutrophils Percent Auto 63.9 % (45-73); Platelet Count 365 X10*3/uL (160-400); Red Blood Count 4.38 X10*6/uL (4.20-5.50); Red Cell Distribution Width 13.4 % (11.0-16.0)
[2024-01-15 13:27] LABS: Anion Gap 16 (12-20); Blood Urea Nitrogen 13 mg/dL (9-16); Carbon Dioxide 25 mmol/L (22-29); Chloride 103 mmol/L (96-108); Creatinine Clr Calc Pharmacy 96.7; Estimated Glomerular Filt Rate > 60; Glucose Random 105 mg/dL (60-115); Potassium 3.1 mmol/L (3.3-5.1); Sodium 141 mmol/L (135-145)
[2024-01-15 13:30] LABS: HCG Quantitative < 2 mIU/mL
[2024-01-15] MEDS: 0.9 % Sodium Chloride 1,000 ML 999 ML IV (17:02)
[2024-01-15] MEDS: Ketorolac Tromethamine 30 MG/ML VIAL IVPUSH (17:03)
[2024-01-15] MEDS: Tamsulosin HCL 0.4 MG CAPSULE PO (19:08)
[2024-01-15 20:00] VITALS: BP 110/66; PULSE 72; RESP 14; TEMP 36.8; O2SAT 98
== END 2024-01-15 20:08 | disposition home or self-care (01) ==
PROVIDERS: Physician Assistant; Emergency Provider Internal Medicine
DX: N20.1 Calculus of ureter (principal); R10.2 Pelvic and perineal pain; R10.32 Left lower quadrant pain; Z79.899 Other long term (current) drug therapy
CPT/HCPCS: 36415; 74176; 76830; 76856; 80048; 84702; 85025; 93975; 96361; 96374; 99284; 99285; J1885

== ENCOUNTER 2024-02-09 16:22 | Outpatient (REF) | payer OTHER, SELFPAY | END 2024-02-09 16:23 | disposition home or self-care (01) | LOC: HO.LAB 16:22 | PROVIDERS: PCP Nurse Practitioner Family; Visit Provider Internal Medicine Endocrinology, Diabetes & Metabolism | DX: E28.2 Polycystic ovarian syndrome (principal); E28.1 Androgen excess | CPT/HCPCS: 99212 ==

== ENCOUNTER 2024-02-09 16:22 | Outpatient (AMB) | payer OTHER, SELFPAY ==
--- NOTE | 2024-02-09 16:24 | MHC.OFFVIS ---
Intake Vital Signs 02/09/24 16:25 Height 5 ft Weight 145 lb 15.136 oz BMI 28.5 BP 108/66 Blood Pressure Location Lt brachial Position Sitting Pulse 80 Pulse Source Pulse Oximeter Intake Visit Reasons: F/U Hyperandrogenism-confirmed Intake Note: Patient present today for Hyperandrogenism follow up visit. Last seen by Dr. Gentile on 09/10/2021. 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 The patient last saw Dr. Gentile 09/10/2021 She had labs checked by her OB Java Swing Developer which revealed elevated free and total testosterone levels. She also reports irregular menses since 2019. After her initial visit we completed a full biochemical assessment which was WNL other than an elevated free testosterone. Her AM cortisol was also slightly elevated. She subsequently had a dexamethasone suppression test which was completely WNL. She presents today to review these results. Menarche was age 14. Menses have been irregular, coming sometimes multiple times per month, and sometimes not for many months at a time. OCP use: Was previously on OCP from [id number]. Metformin use: Denies Weight gain: Does report rapid weight gain in the past few months. Hirsutism/hyperandrogenism: Denies hirsutism, but does report increased acne on her neck as well as back and arms. Trying to conceive/clomiphene: Has not attempted conception. Ovarian U/S: 06/16/2021 The uterus is anteverted and measures 7.5 x 3.3 x 3.9 cm in dimension. No focal uterine lesion is seen. Endometrial thickness is normal measuring 0.5 cm. There are nabothian cysts in the cervix. There is a small amount of fluid seen in the endocervical canal. The ovaries are normal in size. The right ovary measures 3.3 x 1.7 x 3.5 cm and the left ovary measures 2.7 x 1.5 x 2.3 cm. There are bilateral small simple ovarian cysts or follicles. There is a small amount of fluid in the pelvis.? Lipids: LDL mildly elevated. Labs: Laboratory Tests 07/06/21 07/06/21 07/06/21 13:52 13:52 Unknown Hemoglobin A1c % 5.3 Glucose Tolerance LDL Cholesterol Di rect 141 H Free Estradiol 2.15 Total Estradiol 71 Estradiol Ultra LC MSMS 75 FSH 3.9 Luteinizing Hormon e 1.9 Prolactin 21.7 Total Testosterone 39 Fr Testosterone Di be 7.5 H Sex Hormone Bind G lob 18 Androstenedione 141 DHEA Sulfate 354 Cortisol ACTH 17-Hydroxyprogeste stephan 125 Dexamethasone 07/10/21 07/10/21 07/21/21 07:25 07:25 07:55 Hemoglobin A1c % Glucose Tolerance LDL Cholesterol Di rect Free Estradiol Total Estradiol Estradiol Ultra LC MSMS FSH Luteinizing Hormon e Prolactin Total Testosterone Fr Testosterone Di be Sex Hormone Bind G lob Androstenedione DHEA Sulfate Cortisol 22.1 H ACTH 26 9 17-Hydroxyprogeste stephan Dexamethasone 07/21/21 07/21/21 07:55 07:55 Hemoglobin A1c % Glucose Tolerance LDL Cholesterol Di rect Free Estradiol Total Estradiol Estradiol Ultra LC MSMS FSH Luteinizing Hormon e Prolactin Total Testosterone Fr Testosterone Di be Sex Hormone Bind G lob Androstenedione DHEA Sulfate Cortisol <0.5 L ACTH 17-Hydroxyprogeste stephan Dexamethasone 356 No hair growth on face . On IUD . Took Depo . Experience lightheadedness and headaches [facility] Medical History Gestational diabetes 26 weeks gestation of Asthma COVID-19 Renal mass, left Vitamin D deficiency Obesity (BMI 30.0-34.9) Mild asthma Depression with anxiety Surgical History History of tooth extraction Family History Father Cancer Seizures Mother Hypertension Kidney stones Paternal Grandmother Breast cancer Diabetes mellitus Paternal Grandfather Diabetes mellitus Maternal Aunt Hypertension Other Mental health disorder Social History Household Members: None Both parents involved: No Housing: Apartment Alcohol intake: former Patient Tobacco Use Status: Never used Tobacco e-Cigarette/Vaping Use: Never Used Second Hand Smoke Exposure: No service: No Current occupational status: employed 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 Assessment & Plan Assessment & Plan (1) PCOS (polycystic ovarian syndrome): Code(s): E28.2 - Polycystic ovarian syndrome Plan: This is a 28-year-old female with a history of hyperandrogenism with workup consistent with polycystic ovarian syndrome. I do not think Her symptoms are related to the hyperandrogenism Plan is to have patient follow up with primary care provider and possibly at primary care provider might want to seek a neurologic consult for symptoms Coding Level of Care Code Est Pt Level 3 (24708) Diagnoses PCOS (polycystic ovarian syndrome) E28.2
[2024-02-09 16:25] VITALS: BP 108/66; PULSE 80; BMI 28.5
== END 2024-02-09 16:43 | disposition home or self-care (01) ==
PROVIDERS: PCP Nurse Practitioner Family; Visit Provider Internal Medicine Endocrinology, Diabetes & Metabolism
DX: E28.2 Polycystic ovarian syndrome (principal)
CPT/HCPCS: 99213

== ENCOUNTER 2024-06-20 15:02 | Outpatient (AMB) | payer OTHER, SELFPAY ==
--- NOTE | 2024-06-20 15:04 | MHC.OFFVIS ---
Intake Visit Reasons: Kidney stones Intake Note: Patient is present for KIDNEY STONES Urology Medication:NONE Antibiotic Allergy:NONE Blood Thinner:NONE Pattern Checker Required: No Allergies metronidazole [From Flagyl] Allergy (Severe, Verified 06/20/24 16:15) Hives , problems breathing Medication List - Last Reconciled 06/20/24 by BEATRICE Tabares albuterol sulfate 90 mcg/actuation 2 inhalations inhalation Q6H PRN escitalopram oxalate 10 mg PO DAILY hydroxyzine HCl 10 mg PO BID sulfamethoxazole-trimethoprim 800-160 mg (Bactrim DS) 1 tab PO BID 10 days HPI Comments Details: Kamron is a pleasant 28-year-old female patient of Dr. Romero. He has a past medical history of gestational diabetes, vitamin-D deficiency, asthma, depression, and anxiety. She presents to the office today as a new patient for nephrolithiasis. In discussion with the patient today she reports having seeked emergency room care approximately 5 months ago for left-sided flank pain she had been experiencing at which time a CT of the abdomen was ordered and performed. These results were reviewed with the patient today. Both kidneys demonstrate clusters of pyramidal medullary calcification suggestive of medullary sponge kidney. Infrarenal calculi measure up to 4 mm in the lower pole of the right kidney and 3 mm in the midpole the left kidney. Mild to moderate left hydronephrosis is evident to the level of a 4 mm calcification at the eft ureteropelvic junction. The left ureter distally is collapsed. The bladder is unremarkable. Patient reports since her ER visit she believes she passed her kidney stone however has been experiencing ongoing issues with bilateral flank pain right side greater than left. She discusses having increased her fluid intake with water and feels this has been helpful however has continued with episodes of flank pain. She denies any previous history of nephrolithiasis and or surgical intervention for nephrolithiasis. She otherwise denies urinary urgency, urinary frequency, incontinence, nocturia, dysuria, foul smelling urine, changes to urinary stream, fever, and or chills. In office urinalysis results reviewed with the patient today. 2+ leukocytes, positive nitrates, 3+ protein, 3+ microscopic blood. Discussed urinary tract infection as well as potential causes of nephrolithiasis. She otherwise offers no other issues or concerns at this time. [facility] Medical History Gestational diabetes 26 weeks gestation of Asthma COVID-19 Renal mass, left Vitamin D deficiency Obesity (BMI 30.0-34.9) Mild asthma Depression with anxiety Surgical History History of tooth extraction Family History Father Cancer Seizures Mother Hypertension Kidney stones Paternal Grandmother Breast cancer Diabetes mellitus Paternal Grandfather Diabetes mellitus Maternal Aunt Hypertension Other Mental health disorder Social History Household Members: None Both parents involved: No Housing: Apartment Alcohol intake: former Patient Tobacco Use Status: Never used Tobacco e-Cigarette/Vaping Use: Never Used Second Hand Smoke Exposure: No service: No Current occupational status: employed 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 Gender identity: Female Cognitive needs: No Hearing needs: No Vision needs: Yes (glasses) Female Reproductive History Menstrual Age of Menarche: 14 Review of Systems Const All systems reviewed & are unremarkable except as noted in HPI and below Physical Exam Const General: cooperative, healthy appearing, comfortable, no acute distress, well developed, alert and awake Orientation/consciousness: patient oriented x3 Limitations: no limitations HEENT Head: Yes normal to inspection, Yes normocephalic and Yes atraumatic Ears: hearing grossly normal bilaterally Eyes General: appearance normal, both eyes and all related structures Neck Neck: Yes normal visual inspection and Yes trachea midline Chest Chest palpation & inspection: normal inspection of the chest Resp Effort & Inspection: normal respiratory effort and able to speak in complete sentences Cardio Rate: regular rate GI Inspection: Yes normal to inspection General: Yes no CVA tenderness Back/Spine/Pelvis Back: no CVA tenderness Skin General skin exam: no rashes or lesions noted Neuro General: patient oriented x3 Extrem General: Yes normal to inspection Psych Appearance: grossly normal and well kempt Mental Status: mental status grossly normal Speech and movement: Normal speech and movement present and Clear speech present Affect: normal affect Attitude: cooperative Thought process: Normal thought process present Thought content: Normal thought content present Insight: Fair insight present (Psych) Judgement: Fair judgement present (Psych) Results AMB Urinalysis, Automated UA Leukoctes 125 Jamie/uL [facility] 06/20/24 15:13 UA Nitrite Positive Last Edit by Alisa Tapia [facility] on 06/20/24 15:13 UA Urobilinogen 1 mg/dL Last Edit by Alisa Tapia [facility] on 06/20/24 15:13 UA Protein 300 mg/dL Last Edit by Alisa Tapia [facility] on 06/20/24 15:13 UA pH 6.0 Last Edit by Alisa Tapia [facility] on 06/20/24 15:13 UA Blood 200 Roel/uL Last Edit by Alisa Tapia [facility] on 06/20/24 15:13 UA Specific Eagle 1.015 Last Edit by Alisa Tapia [facility] on 06/20/24 15:13 UA Ketone Positive Last Edit by Alisa Tapia [facility] on 06/20/24 15:13 UA Bilirubin 0 mg/dL Last Edit by Alisa Tapia [facility] on 06/20/24 15:13 UA Glucose 0 mg/dL Last Edit by Alisa Tapia [facility] on 06/20/24 15:13 Results Reviewed Results Reviewed: Laboratory Last Values Urine pH (Auto) 6.0 06/20/24 15:12 Specific Eagle (Auto) 1.015 06/20/24 15:12 Urine Protein (Auto) 300 mg/dL 06/20/24 15:12 Glucose (UA)(Auto) 0 mg/dL 06/20/24 15:12 Urine Ketones (Auto) Positive 06/20/24 15:12 Urine Blood (Auto) 200 Roel/uL 06/20/24 15:12 Urine Nitrite (Auto) Positive 06/20/24 15:12 Urine Bilirubin (Auto) 0 mg/dL 06/20/24 15:12 Urine Urobilinogen (Auto) 1 mg/dL 06/20/24 15:12 Leukocyte Esterase (Auto) 125 Jamie/uL 06/20/24 15:12 Date of Service: 01/15/24 EXAMINATION: CT ABDOMEN AND PELVIS WITHOUT CONTRAST FINDINGS: LUNG BASES: The visualized lung bases are unremarkable. LIVER, GALLBLADDER, AND BILIARY TREE: The liver is normal in size, shape, and attenuation. No focal hepatic lesion or biliary ductal dilatation is present. The gallbladder is unremarkable with no evidence of radiopaque gallstones, gallbladder wall thickening, or obvious pericholecystic inflammatory changes. PANCREAS: Unremarkable. SPLEEN: Unremarkable. ADRENAL GLANDS: Unremarkable. KIDNEYS AND URETERS: Both kidneys demonstrate clusters of pyramidal medullary calcification suggestive of medullary sponge kidney. Infrarenal calculi measure up to 4 mm in the lower pole of the right kidney and 3 mm in the midpole the left kidney. Mild to moderate left hydronephrosis is evident to the level of a 4 mm calcification at the left ureteropelvic junction. The left ureter distally is collapsed. BLADDER: Unremarkable. GASTROINTESTINAL TRACT: The small and large bowel are unremarkable. The appendix is nondilated but contains an appendicolith.. ABDOMINAL WALL: No significant hernia is appreciated. LYMPH NODES: Normal. VASCULAR: Unremarkable. PELVIC VISCERA: There is an intrauterine contraceptive device. There are no adnexal masses. OSSEOUS STRUCTURES: Unremarkable. 1. Bilateral medullary pyramidal calcification suggestive of medullary sponge kidney, with bilateral intrarenal calculi. 2. Moderate left hydronephrosis to the level of a 4 mm calcification at the left ureteropelvic junction. 3. Appendicolith within the appendix but no ancillary signs of acute appendicitis. Note that an appendicolith is a risk factor and can be associated with appendicitis. Assessment & Plan Assessment & Plan (1) Hydronephrosis: Code(s): N13.30 - Unspecified hydronephrosis Category: Medical (2) Nephrolithiasis: Code(s): N20.0 - Calculus of kidney Category: Medical (3) Recurrent UTI (urinary tract infection): Code(s): N39.0 - Urinary tract infection, site not specified Category: Medical (4) Flank pain: Code(s): R10.9 - Unspecified abdominal pain Category: Medical Plan In office urinalysis results reviewed with the patient today; as noted above; will send for urine culture. Previous CT results reviewed with the patient today; as noted above. Discussed, educated, and stressed the importance of adequate hydration relation to recurrent urinary tract infections, nephrolithiasis, and overall health and well-being. Discussed seeking emergency room care for worsening symptoms Will obtain stat CT KUB for further assessment evaluation. Start Bactrim as discussed and prescribed. Discussed at length further treatment options for nephrolithiasis Discussed further metabolic workup to include 24 hour urine collection and labs. Follow-up in 2-4 weeks with imaging to be completed prior; or sooner with any issues, concerns, and or questions. Orders: Orders Urine Culture Today N39.0 - Urinary tract infection, site not specified AMB Urinalysis Automated Today Z13.9 - Encounter for screening, unspecified CT kidney stone Today N13.30 - Unspecified hydronephrosis, N20.0 - Calculus of kidney, N39.0 - Urinary tract infection, site not specified Medications: New sulfamethoxazole-trimethoprim 800-160 mg (Bactrim DS) 1 tab PO BID 10 days 20 tabs 0RF N39.0 - Urinary tract infection, site not specified Patient Instructions: The patient had an opportunity to ask questions regarding the treatment plan. All questions were answered. Physical exam, labs, and imaging were discussed and reviewed in detail. As well as risks, benefits, and discussion of treatment choices. No major barriers to understanding were identified. The patient expressed understanding and agreement with the above treatment plan. The patient was made aware they should contact our office by phone for worsening of their current condition, the appearance of new symptoms, or with any questions or concerns. Compliance is encouraged with any medications and follow up testing that is ordered. It is a privilege to be allowed the opportunity to participate in? your urological care.? Again, if you have any questions or concerns If you have any questions or concerns please do not hesitate to contact me. The office is [phone]. This note is constructed using voice recognition software. While every effort has been made to ensure accuracy vascular surgery physician errors may have been included. Yours sincerely, BEATRICE Tabares Coding Level of Care Code New Pt Level 4 (48942) Diagnoses Hydronephrosis N13.30 Nephrolithiasis N20.0 Recurrent UTI (urinary tract infection) N39.0 Flank pain R10.9
== END 2024-06-20 15:36 | disposition home or self-care (01) ==
PROVIDERS: PCP Nurse Practitioner Family; Visit Provider Nurse Practitioner Family
DX: N13.30 Unspecified hydronephrosis (principal); N20.0 Calculus of kidney; N39.0 Urinary tract infection, site not specified; R10.9 Unspecified abdominal pain; Z13.9 Encounter for screening, unspecified
CPT/HCPCS: 99204

== ENCOUNTER 2024-06-20 15:02 | Outpatient (REF) | payer OTHER, SELFPAY | END 2024-06-20 15:03 | disposition home or self-care (01) | LOC: HO.LNP 15:02 | PROVIDERS: PCP Nurse Practitioner Family; Visit Provider Nurse Practitioner Family | DX: N39.0 Urinary tract infection, site not specified (principal); N20.0 Calculus of kidney; N13.30 Unspecified hydronephrosis; R10.9 Unspecified abdominal pain | CPT/HCPCS: 81003; 87086; 99202 ==

== ENCOUNTER 2024-07-01 03:08 | Emergency (ER) | payer OTHER, SELFPAY ==
--- NOTE | ~2024-07-01 | CT_ITS ---
EXAMINATION: CT ABDOMEN AND PELVIS WITHOUT CONTRAST CLINICAL INFORMATION: Pain. COMPARISON: 01/15/2024. TECHNIQUE: Multidetector volumetric imaging was performed from the superior aspect of the liver through the pubic symphysis. Sagittal and coronal reformatted images were obtained on the technologist's workstation. This CT examination was performed using dose optimization techniques as appropriate, variously including the following: *Automated exposure control *Adjustment of mA and/or kV according to patient size (this includes techniques or standardized protocols for targeted exams where dose is matched to indication/reason for exam; i.e. extremities or head) *Use of iterative reconstruction technique DLP: 474 mGy-cm FINDINGS: LUNG BASES: The visualized lung bases are unremarkable. LIVER, GALLBLADDER, AND BILIARY TREE: The liver is normal in size, shape, and attenuation. No focal hepatic lesion or biliary ductal dilatation is present. The gallbladder is unremarkable with no evidence of radiopaque gallstones, gallbladder wall thickening, or obvious pericholecystic inflammatory changes. PANCREAS: Unremarkable. SPLEEN: Unremarkable. ADRENAL GLANDS: Unremarkable. KIDNEYS AND URETERS: Kidneys are normal in size and location. The renal pyramids are hyperdense. There are scattered bilateral renal calculi measuring up to 4 mm lower pole left kidney. There is [id number] right hydronephrosis and proximal right hydroureter to the level of a 4.5 mm proximal right ureteric calculus. BLADDER: Unremarkable. GASTROINTESTINAL TRACT: The small and large bowel are unremarkable. The appendix is unremarkable. ABDOMINAL WALL: There is a small umbilical hernia containing fat. LYMPH NODES: Normal. VASCULAR: Unremarkable. PELVIC VISCERA: There is an IUD in place. OSSEOUS STRUCTURES: There is bilateral sacroiliac subchondral sclerosis. CT/CT abdomen pelvis wo IV con IMPRESSION: 1. [id number] right hydronephrosis and proximal right hydroureter to the level of a 4.5 mm proximal right ureteric calculus. 2. Bilateral renal calculi and medullary nephrocalcinosis. Fleischner guidelines were followed.
[2024-07-01 03:11] VITALS: BP 112/74; PULSE 85; RESP 16; TEMP 36.8; O2SAT 98; BMI 27.3
[2024-07-01 03:46] LABS: Basophils Absolute Auto 0.1 X10*3/uL (0.0-0.2); Basophils Percent Auto 0.5 % (0-2); Eosinophils Percent Auto 0.1 % (0-4); Hematocrit 36.3 % (37.0-47.0); Hemoglobin 12.4 g/dl (12.0-16.0); Imm Gran Abs Auto 0.03 X10*3/uL (0.00-0.03); Imm Gran Pct Auto 0.3 % (0.0-0.4); Lymphocytes Absolute Auto 4.3 X10*3/uL (1.2-4.9); Lymphocytes Percent Auto 42.7 % (20-40); MANUAL DIFF FLAG NO; Mean Corpuscular HGB Conc 34.2 g/dl (31.0-35.0); Mean Corpuscular Hemoglobin 29.8 pg (27.0-33.0); Mean Corpuscular Volume 87.3 fL (80.0-98.0); Mean Platelet Volume 8.9 fL (9.4-12.3); Monocytes Absolute Auto 0.7 X10*3/uL (0.1-1.2); Monocytes Percent Auto 6.9 % (2-11); Neutrophils Percent Auto 49.5 % (45-73); Platelet Count 293 X10*3/uL (160-400); Red Blood Count 4.16 X10*6/uL (4.20-5.50); Red Cell Distribution Width 12.7 % (11.0-16.0); White Blood Count 10.1 X10*3/uL (4.8-10.8)
[2024-07-01 04:02] LABS: Alanine Aminotransferase 12 U/L (0-31); Albumin Level 4.4 g/dL (3.5-5.0); Alkaline Phosphatase 55 U/L (39-117); Anion Gap 14 (12-20); Aspartate Amino Transferase 16 U/L (5-31); Bilirubin Total 0.2 mg/dL (0.0-1.0); Blood Urea Nitrogen 12 mg/dL (9-16); Calcium 9.5 mg/dL (8.4-10.2); Carbon Dioxide 23 mmol/L (22-29); Chloride 103 mmol/L (96-108); Creatinine Clr Calc Pharmacy 84.9; Estimated Glomerular Filt Rate > 60; Glucose Random 98 mg/dL (60-115); Lipase 17 U/L (8-78); Potassium 3.1 mmol/L (3.3-5.1); Sodium 137 mmol/L (135-145); Total Protein 7.6 g/dL (6.5-8.0)
[2024-07-01] MEDS: ondansetron HCL 4 MG/2 ML VIAL IVPUSH (04:36)
[2024-07-01] MEDS: Ketorolac Tromethamine 30 MG/ML VIAL IVPUSH (04:36)
[2024-07-01] MEDS: 0.9 % Sodium Chloride 1,000 ML 999 ML IV ×2 (04:36→06:40)
--- NOTE | 2024-07-01 04:40 | PC.NURSE ---
pt reports 07/24 RLQ abd/R. flank pain. iv established. pt refusing morphine at this time states shes okay with toradol. ivf and medication given per mar. pt to ct scan at this time.
[2024-07-01 04:52] LABS: HCG Quantitative < 2 mIU/mL
[2024-07-01 06:08] VITALS: BP 118/68; PULSE 89; RESP 14; TEMP 37; O2SAT 100
--- NOTE | 2024-07-01 06:24 | ED_ITS ---
HPI - Abdominal Pain General Chief Complaint: Abdominal Pain Stated Complaint: right side pain, vomiting Time Seen by Provider: 07/01/24 04:12 Source: patient Mode of arrival: ambulatory Limitations: no limitations History of Present Illness ED Provider: zach HPI narrative: Patient's history of medullary sponge kidney with frequent flank pain comes here for acute onset of right upper quadrant right flank pain radiating to right lower abdomen started 1 week ago got worse last night with nausea and vomiting x 1patient was seen by urologist last week and prescribed Flomax and Bactrim for UTI plan to get CT scan next week no fever no chills patient never had lithotripsy in the past for kidney stone Related Data Home Medications ?Medication ?Instructions ?Recorded ?Confirmed albuterol sulfate 90 mcg/actuation 2 inh inhalation Q6H PRN shortness 07/24/23 07/24/23 aerosol inhaler of breath or wheezing escitalopram oxalate 10 mg tablet 10 mg PO DAILY 07/24/23 07/24/23 hydroxyzine HCl 10 mg tablet 10 mg PO BID 02/09/24 Previous Rx's ?Medication ?Instructions ?Recorded sulfamethoxazole 800 1 tab PO BID 10 days #20 tabs 06/20/24 mg-trimethoprim 160 mg tablet (Bactrim DS) naproxen 500 mg tablet 250 mg (1/2 x 500 mg) PO BID 14 06/27/24 days #14 tabs prednisone 20 mg tablet 20 mg PO DAILY 5 days #5 tabs 06/27/24 tamsulosin 0.4 mg capsule 0.4 mg PO BEDTIME 14 days #14 caps 06/27/24 tamsulosin 0.4 mg capsule (Flomax) 0.4 mg PO BEDTIME #7 caps 07/01/24 tramadol 50 mg tablet 50 mg PO Q6H PRN pain #20 tabs 07/01/24 Allergies Allergy/AdvReac Type Severity Reaction Status Date / Time metronidazole [From Flagyl] Allergy Severe Hives , Verified 07/01/24 03:16 problems breathing Review of Systems Review of Systems Yes all other systems are reviewed and are negative PMFSH Past Medical History Medical History Gestational diabetes 26 weeks gestation of Asthma COVID-19 Renal mass, left Vitamin D deficiency Obesity (BMI 30.0-34.9) Mild asthma Depression with anxiety Surgical History History of tooth extraction Family History Family History Father Cancer Seizures Mother Hypertension Kidney stones Paternal Grandmother Breast cancer Diabetes mellitus Paternal Grandfather Diabetes mellitus Maternal Aunt Hypertension Other Mental health disorder Social History Social History Household Members: None Housing: Apartment Alcohol intake: former Patient Tobacco Use Status: Never used Tobacco e-Cigarette/Vaping Use: Never Used Second Hand Smoke Exposure: No Advance Directives: No Advance Directives Information Provided: Yes Do you have a plan to hurt others: No Plan service: No Current occupational status: employed 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 Oriented X3. In moderate distress. Eyes: PERRLA, No Nystagmus ENT: Pharynx normal. Oral Mucosa moist Neck: Normal inspection. Neck supple. CVS: Normal heart rate and rhythm. Pulses normal. Respiratory: No respiratory distress. Equal air entry bilateral, no wheezing/rales/rhonchi Abdomen: Soft, tenderness and guarding CVA and right upper quadrant no rebound tenderness Bowel sounds are present, no mass palpable, Skin: Skin warm and dry. Normal skin color. Normal skin turgor. Extremities: No lower extremity edema. No calf tenderness Neuro: Oriented X 3. No motor deficit. Medical Decision Making Medical Decision Making [facility] Narrative: Patient with right renal colic with 4.5 mm stone in right proximal ureter refusing strong pain medication [place] better after IV fluids and Flomax will discharge patient home Differential Diagnosis Differential Diagnoses: The differential diagnosis associated with the presentation includes Renal colic/ureteric stone/UTI Admission/Observation Consideration of admission/observation: Escalation of care including admission/observation considered Lab Data [facility] Lab Attestation statement: I reviewed the patient's lab results. 07/01/24 03:41 07/01/24 03:41 Labs: Lab Results 07/01/24 Range/Units 03:41 WBC 10.1 (4.8-10.8) X10*3/uL RBC 4.16 L (4.20-5.50) X10*6/uL Hgb 12.4 (12.0-16.0) g/dl Hct 36.3 L (37.0-47.0) % MCV 87.3 (80.0-98.0) fL MCH 29.8 (27.0-33.0) pg MCHC 34.2 (31.0-35.0) g/dl RDW 12.7 (11.0-16.0) % Plt Count 293 (160-400) X10*3/uL MPV 8.9 L (9.4-12.3) fL Immature Gran % (Auto) 0.3 (0.0-0.4) % Neut % (Auto) 49.5 (45-73) % Lymph % (Auto) 42.7 H (20-40) % [place] % (Auto) 6.9 (2-11) % Eos % (Auto) 0.1 (0-4) % Baso % (Auto) 0.5 (0-2) % Lymph # (Auto) 4.3 (1.2-4.9) X10*3/uL [place] # (Auto) 0.7 (0.1-1.2) X10*3/uL Eos # (Auto) 0.0 (0.0-0.4) X10*3/uL Baso # (Auto) 0.1 (0.0-0.2) X10*3/uL Abs Immat Gran (auto) 0.03 (0.00-0.03) X10*3/uL Absolute Neuts (auto) 5.0 (2.0-8.3) x10*3/uL Absolute Nucleated RBC 0.000 (0.0-0.012) X10*3/uL Nucleated RBC % (auto) 0.0 (0.0-0.2) /100WBC Sodium 137 (135-145) mmol/L Potassium 3.1 L (3.3-5.1) mmol/L Chloride 103 (96-108) mmol/L Carbon Dioxide 23 (22-29) mmol/L Anion Gap 14 (12-20) BUN 12 (9-16) mg/dL Creatinine 0.82 (0.5-1.4) mg/dL Estim Creat Clear Calc 84.9 Estimated GFR > 60 Random Glucose 98 (60-115) mg/dL Calcium 9.5 (8.4-10.2) mg/dL Total Bilirubin 0.2 (0.0-1.0) mg/dL AST 16 (5-31) U/L ALT 12 (0-31) U/L Alkaline Phosphatase 55 (39-117) U/L Total Protein 7.6 (6.5-8.0) g/dL Albumin 4.4 (3.5-5.0) g/dL Lipase 17 (8-78) U/L Beta HCG, Quant < 2 mIU/mL Independent Interpretation I performed an independent interpretation of an: CT Scan Radiology Impression Discussion of test interpretation with radiology: I have reviewed the radiologist's reading. Radiologist Impression: [place] [id number] CT Scan Report Signed Patient: Kamron Sarah MR#: [id number] : 1995 Acct:[id number] Age/Sex: 28 / F ADM Date: 07/01/24 Loc: .ED Attending Dr: Ordering Physician: Dillon Dillon MD Date of Service: 07/01/24 Procedure(s): CT abdomen pelvis wo IV con Accession Number(s): [id number] cc: Physician,None ; Dillon Dillon MD~ EXAMINATION: CT ABDOMEN AND PELVIS WITHOUT CONTRAST CLINICAL INFORMATION: Pain. COMPARISON: 01/15/2024. TECHNIQUE: Multidetector volumetric imaging was performed from the superior aspect of the liver through the pubic symphysis. Sagittal and coronal reformatted images were obtained on the technologist's workstation. This CT examination was performed using dose optimization techniques as appropriate, variously including the following: *Automated exposure control *Adjustment of mA and/or kV according to patient size (this includes techniques or standardized protocols for targeted exams where dose is matched to indication/reason for exam; i.e. extremities or head) *Use of iterative reconstruction technique DLP: 474 mGy-cm FINDINGS: LUNG BASES: The visualized lung bases are unremarkable. LIVER, GALLBLADDER, AND BILIARY TREE: The liver is normal in size, shape, and attenuation. No focal hepatic lesion or biliary ductal dilatation is present. The gallbladder is unremarkable with no evidence of radiopaque gallstones, gallbladder wall thickening, or obvious pericholecystic inflammatory changes. PANCREAS: Unremarkable. SPLEEN: Unremarkable. ADRENAL GLANDS: Unremarkable. KIDNEYS AND URETERS: Kidneys are normal in size and location. The renal pyramids are hyperdense. There are scattered bilateral renal calculi measuring up to 4 mm lower pole left kidney. There is [id number] right hydronephrosis and proximal right hydroureter to the level of a 4.5 mm proximal right ureteric calculus. BLADDER: Unremarkable. GASTROINTESTINAL TRACT: The small and large bowel are unremarkable. The appendix is unremarkable. ABDOMINAL WALL: There is a small umbilical hernia containing fat. LYMPH NODES: Normal. VASCULAR: Unremarkable. PELVIC VISCERA: There is an IUD in place. OSSEOUS STRUCTURES: There is bilateral sacroiliac subchondral sclerosis. CT/CT abdomen pelvis wo IV con IMPRESSION: 1. [id number] right hydronephrosis and proximal right hydroureter to the level of a 4.5 mm proximal right ureteric calculus. 2. Bilateral renal calculi and medullary nephrocalcinosis. Fleischner guidelines were followed. Medications Administered Generic Name Dose Route Start Last Admin Trade Name Freq PRN Reason Stop Dose Admin Sodium Chloride 1,000 mls @ 999 mls/hr 07/01/24 06:22 07/01/24 06:40 Ns IV 07/01/24 07:22 999 mls/hr .Q1H1M ONE Administration Discontinued Medications Generic Name Dose Route Start Last Admin Trade Name Freq PRN Reason Stop Dose Admin Acetaminophen 650 mg 07/01/24 06:19 07/01/24 06:39 Acetaminophen 325 Mg Tablet PO 07/01/24 06:20 650 mg ONCE ONE Administration Sodium Chloride 1,000 mls @ 999 mls/hr 07/01/24 04:16 07/01/24 06:06 Ns IV 07/01/24 05:16 Infused .Q1H1M ONE Infusion Ketorolac Tromethamine 30 mg 07/01/24 04:16 07/01/24 04:36 Ketorolac Tromethamine 30 Mg/Ml Vial IVPUSH 07/01/24 04:17 30 mg ONCE ONE Administration Ondansetron HCl 4 mg 07/01/24 04:16 07/01/24 04:36 Ondansetron Hcl 4 Mg/2 Ml Vial IVPUSH 07/01/24 04:17 4 mg ONCE ONE Administration Potassium Chloride 10 meq 07/01/24 06:33 07/01/24 06:39 Potassium Chloride Er 10 Meq Tablet.Er PO 07/01/24 06:34 10 meq ONCE ONE Administration Tamsulosin HCl 0.4 mg 07/01/24 06:19 07/01/24 06:39 Tamsulosin Hcl 0.4 Mg Capsule PO 07/01/24 06:20 0.4 mg ONCE ONE Administration Discharge Plan Discharge Clinical Impression: Calculus of proximal right ureter Patient Disposition: Home, Self-Care Instructions: Ureteral Stones (ED) Additional Instructions: Drink plenty of fluids Take Flomax 1 capsule daily till you pass the stone Pain medication as prescribed Follow with urologist Report to ER if worsening of the pain Prescriptions: New tamsulosin [Flomax] 0.4 mg capsule 0.4 mg PO BEDTIME Qty: 7 0RF tramadol 50 mg tablet 50 mg PO Q6H PRN (Reason: pain) Qty: 20 0RF No Action tamsulosin 0.4 mg capsule 0.4 mg PO BEDTIME 14 Days Qty: 14 0RF naproxen 500 mg tablet 250 mg PO BID 14 Days Qty: 14 0RF prednisone 20 mg tablet 20 mg PO DAILY 5 Days Qty: 5 0RF escitalopram oxalate 10 mg tablet 10 mg PO DAILY albuterol sulfate 90 mcg/actuation HFA aerosol inhaler 2 inh inhalation Q6H PRN (Reason: shortness of breath or wheezing) hydroxyzine HCl 10 mg tablet 10 mg PO BID sulfamethoxazole-trimethoprim [Bactrim DS] 800-160 mg tablet 1 tab PO BID 10 Days Qty: 20 0RF Referrals: Don Morin MD [Physician] - 3 days Print Language: Malay
--- NOTE | 2024-07-01 06:38 | PC.NURSE ---
MD spoke with pt regarding ct scan results. order for 4mg morphine. pt refusing at this time reports pain is tolerable at 6/10 and requesting tylenol.
[2024-07-01] MEDS: Potassium Chloride ER 10 MEQ TABLET.ER PO (06:39)
[2024-07-01] MEDS: Acetaminophen 325 MG TABLET 650 MG PO (06:39)
[2024-07-01] MEDS: Tamsulosin HCL 0.4 MG CAPSULE PO (06:39)
[2024-07-01 07:20] LABS: Appearance Urine Cloudy; Color Urine Yellow; Glucose Urine UA Negative (Negative); Leukocyte Esterase Urine Negative (Negative); Nitrite Urine Negative (Negative); UMIC TRIGGER UACC YES; Urine Blood Moderate (2+) (Negative); Urine Ketones Negative (Negative); Urine Protein Negative (Neg-Trace)
[2024-07-01 07:22] LABS: Bacteria Urine Trace (None Seen); Hyaline Casts Urine 0-2 /LPF (0-2); RBC Urine >20 /HPF (0-2); WBC Urine 0-5 /HPF (0-5)
[2024-07-01] MEDS: dexAMETHasone sod phosphate 10 MG/ML VIAL IVPUSH (07:34)
--- NOTE | 2024-07-01 07:45 | PC.NURSE ---
Patient refused Tramadol, stating I don't like meds. I'm already taking Naproxen, Prednisone, and Flomax . Tramadol refused, and medication was returned to [facility] ED Pyxis unopened by this RN. Med return witnessed by Wes Mcmullen RN. Plan for discharge home.
[2024-07-01 07:57] VITALS: BP 118/68; PULSE 89; RESP 14; TEMP 37; O2SAT 100
== END 2024-07-01 07:58 | disposition home or self-care (01) ==
PROVIDERS: Emergency Provider Internal Medicine
DX: N20.1 Calculus of ureter (principal); R10.11 Right upper quadrant pain; R11.2 Nausea with vomiting, unspecified; Z79.899 Other long term (current) drug therapy
CPT/HCPCS: 36415; 74176; 80053; 81001; 81003; 83690; 84702; 85025; 96361; 96374; 96375; 96376; 99284; J1100; J1885; J2405

== ENCOUNTER 2024-07-10 01:24 | Inpatient (IN) | payer OTHER, SELFPAY ==
[2024-07-10] VITALS (8 sets, daily range): BP systolic 105–129; BP diastolic 46–83; PULSE 77–86; RESP 16–20; TEMP 36.2–37.1; O2SAT 96–99; BMI 28.3
--- NOTE | ~2024-07-10 | US_ITS ---
EXAMINATION: US RETROPERITONEAL COMPLETE (RENAL) CLINICAL INFORMATION: Left flank pain with history of stones and medullary nephrocalcinosis. COMPARISON: CT abdomen 07/01/2024. TECHNIQUE: Real-time imaging of the kidneys and bladder. FINDINGS: RIGHT KIDNEY: 11.9 x 6.4 x 5.3 cm (SAG x AP x TRV). The kidney is normal in size and contour. The medullary pyramids are echogenic consistent with medullary nephrocalcinosis. Renal cortical thickness is normal. No calculi or focal parenchymal lesions. No hydronephrosis. LEFT KIDNEY: 13.8 x 6.7 x 6.7 cm (SAG x AP x TRV). The kidney is normal in size and contour. The medullary. Leads are echogenic consistent with medullary nephrocalcinosis. Renal cortical thickness is normal. There is an 8 x 4 mm calculus present in the proximal left ureter associated with hydronephrosis and perinephric fluid consistent with an obstructing stone. No other stones or renal masses are seen. BLADDER: Well distended and normal. Right ureteral jet is demonstrated; left is not. US/US renal BI IMPRESSION: 1. Underlying medullary nephrocalcinosis. 2. Obstructing 8 x 4 mm calculus in the proximal left ureter with associated hydronephrosis and perinephric fluid. Electronically signed by: Trev Theodore MD 07/10/2024 10:00 AM EDT
--- NOTE | ~2024-07-10 | US_ITS ---
EXAMINATION: US RETROPERITONEAL COMPLETE (RENAL) CLINICAL INFORMATION: Hydronephrosis and kidney stone evaluation. COMPARISON: Ultrasound renal dictated 07/10/2024. TECHNIQUE: Real-time imaging of the kidneys and bladder. Study limited, to the left kidney and bladder. FINDINGS: LEFT KIDNEY: 14.0 x 6.2 x 5.4 cm (SAG x AP x TRV). Medullary calcinosis is again observed. Lower pole stone at 5 mm again observed. Lower pole cyst at 11 x 9 mm again observed. Previously noted proximal left ureteral stone is not seen on today's exam although moderate hydronephrosis is noted unchanged. BLADDER: The bladder is decompressed. US/US renal BI IMPRESSION: Hydronephrosis persists in the left kidney although the previously noted calculus in the proximal left ureter is not seen.. Electronically signed by: Anshul Clancy MD 07/11/2024 04:35 PM EDT
[2024-07-10 01:54] LABS: MANUAL DIFF FLAG NO
[2024-07-10 01:55] LABS: Basophils Absolute Auto 0.1 X10*3/uL (0.0-0.2); Basophils Percent Auto 0.4 % (0-2); Eosinophils Percent Auto 0.3 % (0-4); Hematocrit 36.3 % (37.0-47.0); Hemoglobin 12.3 g/dl (12.0-16.0); Imm Gran Abs Auto 0.04 X10*3/uL (0.00-0.03); Imm Gran Pct Auto 0.3 % (0.0-0.4); Lymphocytes Absolute Auto 2.7 X10*3/uL (1.2-4.9); Lymphocytes Percent Auto 18.4 % (20-40); Mean Corpuscular HGB Conc 33.9 g/dl (31.0-35.0); Mean Corpuscular Hemoglobin 29.9 pg (27.0-33.0); Mean Corpuscular Volume 88.1 fL (80.0-98.0); Mean Platelet Volume 8.9 fL (9.4-12.3); Monocytes Absolute Auto 0.8 X10*3/uL (0.1-1.2); Monocytes Percent Auto 5.8 % (2-11); Neutrophils Absolute Auto 10.8 x10*3/uL (2.0-8.3); Neutrophils Percent Auto 74.8 % (45-73); Platelet Count 320 X10*3/uL (160-400); Red Blood Count 4.12 X10*6/uL (4.20-5.50); Red Cell Distribution Width 12.7 % (11.0-16.0); White Blood Count 14.4 X10*3/uL (4.8-10.8)
[2024-07-10 02:11] LABS: Alanine Aminotransferase 14 U/L (0-31); Albumin Level 4.1 g/dL (3.5-5.0); Alkaline Phosphatase 46 U/L (39-117); Anion Gap 16 (12-20); Aspartate Amino Transferase 15 U/L (5-31); Bilirubin Total 0.4 mg/dL (0.0-1.0); Blood Urea Nitrogen 14 mg/dL (9-16); Carbon Dioxide 19 mmol/L (22-29); Chloride 103 mmol/L (96-108); Creatinine Clr Calc Pharmacy 79.6; Estimated Glomerular Filt Rate > 60; Glucose Random 106 mg/dL (60-115); Potassium 3.7 mmol/L (3.3-5.1); Sodium 134 mmol/L (135-145); Total Protein 7.1 g/dL (6.5-8.0)
[2024-07-10 02:21] LABS: Lipase 17 U/L (8-78)
[2024-07-10 02:26] LABS: Appearance Urine Clear; Color Urine Yellow; Glucose Urine UA Negative (Negative); Leukocyte Esterase Urine Trace (Negative); Nitrite Urine Negative (Negative); UMIC TRIGGER UACC YES; Urine Blood Moderate (2+) (Negative); Urine Ketones Negative (Negative); Urine Protein Trace mg/dL (Neg-Trace)
--- NOTE | 2024-07-10 02:26 | MHC.EDTECH ---
This Tech assumed care of this pt. Pt changed over into a hospital gown. Urine sent down to the lab for processing. Pt hunched over the side of bed in pain ANGUS Giordano made aware
[2024-07-10 02:27] LABS: UPreg QC Valid YES; Urine Pregnancy NEGATIVE (NEGATIVE)
--- NOTE | 2024-07-10 02:36 | PC.NURSE ---
pt in ED room 3 reporting 10/10 left flank pain x 3 days with associated nausea/vomiting. recently dx with kidney stone to right side however unsure if she has passed it, states this feels like a new one. scheduled for urology appt on tuesday however could not tolerate this pain anymore. #20g iv line placed in LAC. pt waiting to be seen by ED provider. call corona within reach.
[2024-07-10 03:18] LABS: Bacteria Urine Trace (None Seen); Hyaline Casts Urine 0-2 /LPF (0-2); RBC Urine >20 /HPF (0-2); WBC Urine 0-5 /HPF (0-5)
--- NOTE | 2024-07-10 05:34 | PC.NURSE ---
pt getting upset stating she feels neglected and that she has been waiting forever to be seen by the provider. explained to pt that we are sorry for the wait and multiple people still waiting to be seen - pt given blanket as requested. call corona within reach
--- NOTE | 2024-07-10 06:42 | ED.FEMALEGU ---
HPI - Female Genitourinary General Chief complaint: Urogenital-Female Stated complaint: kidney stones Time Seen by Provider: 07/10/24 05:59 Source: patient Mode of arrival: ambulatory Limitations: no limitations History of Present Illness ED Provider: Dr. Philippe HPI Narrative: Patient seen about 9 days ago with right flank pain. She has medullary sponge kidney with stone formation. She was diagnosed with right sided Ureteral calculus. Now patient having left flank pain with nausea and vomiting MD elicited complaint: flank pain Onset (ago): hour(s) Severity: moderate Related Data Home Medications ?Medication ?Instructions ?Recorded ?Confirmed albuterol sulfate 90 mcg/actuation 2 inh inhalation Q6H PRN shortness 07/24/23 07/24/23 aerosol inhaler of breath or wheezing escitalopram oxalate 10 mg tablet 10 mg PO DAILY 07/24/23 07/24/23 hydroxyzine HCl 10 mg tablet 10 mg PO BID 02/09/24 Previous Rx's ?Medication ?Instructions ?Recorded sulfamethoxazole 800 1 tab PO BID 10 days #20 tabs 06/20/24 mg-trimethoprim 160 mg tablet (Bactrim DS) naproxen 500 mg tablet 250 mg (1/2 x 500 mg) PO BID 14 06/27/24 days #14 tabs prednisone 20 mg tablet 20 mg PO DAILY 5 days #5 tabs 06/27/24 tamsulosin 0.4 mg capsule 0.4 mg PO BEDTIME 14 days #14 caps 06/27/24 ondansetron 4 mg disintegrating 4 mg PO Q8H PRN nausea and 07/01/24 tablet vomiting #20 tabs tamsulosin 0.4 mg capsule (Flomax) 0.4 mg PO BEDTIME #7 caps 07/01/24 tramadol 50 mg tablet 50 mg PO Q6H PRN pain #20 tabs 07/01/24 Allergies Allergy/AdvReac Type Severity Reaction Status Date / Time metronidazole [From Flagyl] Allergy Severe Hives , Verified 07/10/24 01:32 problems breathing Review of Systems Review of Systems: Yes all other systems are reviewed and are negative Neurologic: Denies Sensory deficit (Neuro) [facility] Past Medical History Medical History Gestational diabetes 26 weeks gestation of Asthma COVID-19 Renal mass, left Vitamin D deficiency Obesity (BMI 30.0-34.9) Mild asthma Depression with anxiety Surgical History History of tooth extraction Family History Family History Father Cancer Seizures Mother Hypertension Kidney stones Paternal Grandmother Breast cancer Diabetes mellitus Paternal Grandfather Diabetes mellitus Maternal Aunt Hypertension Other Mental health disorder Social History Social History Household Members: None Housing: Apartment Alcohol intake: former Patient Tobacco Use Status: Never used Tobacco Smoked in Last 30 Days: No e-Cigarette/Vaping Use: Never Used Second Hand Smoke Exposure: No Use of substances other than those prescribed or required for medical reasons: No Advance Directives: No Advance Directives Information Provided: No Do you have a plan to hurt others: No Plan Patient : No service: No Current occupational status: employed 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 Gender identity: Female Cognitive needs: No Hearing needs: No Vision needs: Yes (glasses) Physical Exam Vital Signs: Vital Signs: Last Vital Signs Temp 98.7 F 07/10/24 06:21 Pulse 77 07/10/24 06:21 Resp 16 07/10/24 06:21 BP 123/70 07/10/24 06:21 Pulse Ox 97 07/10/24 06:21 O2 Del Method Room Air 07/10/24 06:21 BMI result Body Mass Index 28.3 Const: Other: patient complaining of left flank pain Nutritional Appearance: average body habitus Orientation/consciousness: oriented to person and patient oriented x3 Limitations: no limitations HEENT: Head: Yes normal to inspection Ears: external ears normal General nose exam: Normal external nose present Mouth: Normal oral and palatal mucosa present and oropharynx normal Throat: Yes posterior oropharynx normal Eyes: General: appearance normal, both eyes and all related structures Neck: Other: supple Neck: Yes normal visual inspection Chest: Chest palpation & inspection: normal inspection of the chest Resp: Auscultation: clear to auscultation bilaterally Cardio: Jugular venous distension: no JVD Rate: regular rate Rhythm: regular rhythm Heart sounds: S1 normal heart sound present and S2 normal heart sound present GI: Inspection: Yes normal to inspection Palpation (GI): Soft to palpation, nontender and No hepatosplenomegaly present Auscultation: normal bowel sounds : General: Yes no CVA tenderness Back/Spine/Pelvis: Back: no CVA tenderness Skin: General skin exam: no rashes or lesions noted Neuro: General: oriented to person and patient oriented x3 Cranial nerves: Yes CN's II-XII intact bilaterally Motor exam (neuro): 5/5 motor strength present throughout Sensory Exam: No Sensory deficit (Neuro) Extrem: General: Yes normal to inspection Psych: Appearance: grossly normal Course Reevaluation(s) Reevaluation #1: patient being medicated will obtain US as patient recently had a CT scan Time: 06:49 Reevaluation #2: physician observation started now at 6:50am. Reason is patient is awaiting US and needs reevaluation to see if her medication works for her pain and nausea. Time: 06:53 Medical Decision Making Differential Diagnosis Differential Diagnoses: The differential diagnosis associated with the presentation includes (renal colic, renal failure, pyelonephritis) Admission/Observation Consideration of admission/observation: Escalation of care including admission/observation considered (upon arrival patient considered for admission) Lab Data 07/10/24 01:49 07/10/24 01:49 Labs: Lab Results 07/10/24 07/10/24 Range/Units 01:49 02:17 WBC 14.4 H (4.8-10.8) X10*3/uL RBC 4.12 L (4.20-5.50) X10*6/uL Hgb 12.3 (12.0-16.0) g/dl Hct 36.3 L (37.0-47.0) % MCV 88.1 (80.0-98.0) fL MCH 29.9 (27.0-33.0) pg MCHC 33.9 (31.0-35.0) g/dl RDW 12.7 (11.0-16.0) % Plt Count 320 (160-400) X10*3/uL MPV 8.9 L (9.4-12.3) fL Immature Gran % (Auto) 0.3 (0.0-0.4) % Neut % (Auto) 74.8 H (45-73) % Lymph % (Auto) 18.4 L (20-40) % Clare % (Auto) 5.8 (2-11) % Eos % (Auto) 0.3 (0-4) % Baso % (Auto) 0.4 (0-2) % Lymph # (Auto) 2.7 (1.2-4.9) X10*3/uL Clare # (Auto) 0.8 (0.1-1.2) X10*3/uL Eos # (Auto) 0.0 (0.0-0.4) X10*3/uL Baso # (Auto) 0.1 (0.0-0.2) X10*3/uL Abs Immat Gran (auto) 0.04 H (0.00-0.03) X10*3/uL Absolute Neuts (auto) 10.8 H (2.0-8.3) x10*3/uL Absolute Nucleated RBC 0.000 (0.0-0.012) X10*3/uL Nucleated RBC % (auto) 0.0 (0.0-0.2) /100WBC Sodium 134 L (135-145) mmol/L Potassium 3.7 (3.3-5.1) mmol/L Chloride 103 (96-108) mmol/L Carbon Dioxide 19 L (22-29) mmol/L Anion Gap 16 (12-20) BUN 14 (9-16) mg/dL Creatinine 0.89 (0.5-1.4) mg/dL Estim Creat Clear Calc 79.6 Estimated GFR > 60 Random Glucose 106 (60-115) mg/dL Calcium 9.0 (8.4-10.2) mg/dL Total Bilirubin 0.4 (0.0-1.0) mg/dL AST 15 (5-31) U/L ALT 14 (0-31) U/L Alkaline Phosphatase 46 (39-117) U/L Total Protein 7.1 (6.5-8.0) g/dL Albumin 4.1 (3.5-5.0) g/dL Lipase 17 (8-78) U/L Urine Color Yellow Urine Appearance Clear Urine pH 8.0 (5.0-9.0) Ur Specific [place] 1.020 (1.005-1.025) Urine Protein Trace (Neg-Trace) mg/dL Urine Glucose (UA) Negative (Negative) mg/dL Urine Ketones Negative (Negative) mg/dL Urine Blood Moderate (2+) H (Negative) Urine Nitrite Negative (Negative) Ur Leukocyte Esterase Trace H (Negative) Urine RBC >20 H (0-2) /HPF Urine WBC 0-5 (0-5) /HPF Ur Squamous Epith Cells 6-10 (0-2) /HPF Urine Bacteria Trace (None Seen) Hyaline Casts 0-2 (0-2) /LPF Urine Test NEGATIVE (NEGATIVE) External Record Review External record reviewed: Outpatient record and Prior outpatient radiology Prescription Management I considered prescription management with: Antibiotic (no evidence of pyelonephritis or UTI) Chronic Conditions Patient?s care impacted by: Diabetes and Other (medullary kidney with stone formation) Discharge Plan Discharge Clinical Impression: Renal colic, Hydronephrosis Patient Disposition: Still a Patient Prescriptions: No Action tamsulosin 0.4 mg capsule 0.4 mg PO BEDTIME 14 Days Qty: 14 0RF naproxen 500 mg tablet 250 mg PO BID 14 Days Qty: 14 0RF prednisone 20 mg tablet 20 mg PO DAILY 5 Days Qty: 5 0RF escitalopram oxalate 10 mg tablet 10 mg PO DAILY albuterol sulfate 90 mcg/actuation HFA aerosol inhaler 2 inh inhalation Q6H PRN (Reason: shortness of breath or wheezing) tamsulosin [Flomax] 0.4 mg capsule 0.4 mg PO BEDTIME Qty: 7 0RF tramadol 50 mg tablet 50 mg PO Q6H PRN (Reason: pain) Qty: 20 0RF ondansetron 4 mg tablet,disintegrating 4 mg PO Q8H PRN (Reason: nausea and vomiting) Qty: 20 0RF hydroxyzine HCl 10 mg tablet 10 mg PO BID sulfamethoxazole-trimethoprim [Bactrim DS] 800-160 mg tablet 1 tab PO BID 10 Days Qty: 20 0RF Print Language: Ethiopian
[2024-07-10] MEDS: Ketorolac Tromethamine 30 MG/ML VIAL IVPUSH (06:46)
[2024-07-10] MEDS: Tamsulosin HCL 0.4 MG CAPSULE PO (06:46)
[2024-07-10] MEDS: ondansetron HCL 4 MG/2 ML VIAL IVPUSH (06:46)
[2024-07-10] MEDS: 0.9 % Sodium Chloride 1,000 ML 500 ML IVCONT (07:45)
[2024-07-10] MEDS: Ketorolac Tromethamine 15 MG/ML VIAL IVPUSH ×2 (10:24→21:22)
--- NOTE | 2024-07-10 14:09 | PC.NURSE ---
pt ate 4 saltines around 1pm. can't be done tonight. dr espinosa spoke with pt and she will be admitted and put on the add on list for tomorrow. back to er as they still have her bed available.
--- NOTE | 2024-07-10 14:18 | PC.NURSE ---
patient returned from the OR and could not have surgery as patient ate while in the ED. This RN did not know that the OR was an option. I will speak with the ED provider regarding the future plans. Patient would like to have surgery now as she has wants to get it over with and has special needs child caregiver
[2024-07-10] MEDS: Lactated Ringers 500 ML 125 ML IV (16:29)
[2024-07-10] MEDS: 0.9 % Sodium Chloride Flush 3 ML SYRINGE IVFLUSH ×2 (16:34→23:02)
--- NOTE | 2024-07-10 16:57 | PC.NURSE ---
Pt to overflow- pain reporting /10 at this time- refusing pain medications at this did (received toraldol in ED) Reviewed pain med options with patient, patient stated she would let RN know when pain worsened and wanted medicaitons
--- NOTE | 2024-07-10 18:57 | PHA.MEDREC ---
Addendum entered by Chavo Dumas [facility] 07/10/24 19:06: med rec reviewed Original Note: Pharmacy Consult ? Medication Reconciliation Pharmacy has completed the medication reconciliation. Confirmed medications with patient. Patient was able to confirm what they are on. She states they never started the Tramadol 50mg due to her not feeling comfortable taking it. She also was not sure if she got Ondansentran 4mg or not but did request we call the pharmacy to confirm because she would like it. I called her pharmacy and they confirmed she picked that up 07/02/24. She states she has not taken her medications since 2 nights ago.
[2024-07-11 03:19] VITALS: BP 110/57; PULSE 79; RESP 18; TEMP 36.6; O2SAT 98
[2024-07-11 07:19] VITALS: BP 123/59; PULSE 81; RESP 16; TEMP 36.6; O2SAT 95
[2024-07-11 07:49] VITALS: BP 94/54; PULSE 70; RESP 16; TEMP 36; O2SAT 98
[2024-07-11] MEDS: 0.9 % Sodium Chloride Flush 3 ML SYRINGE IVFLUSH (08:18)
--- NOTE | 2024-07-11 15:19 | MHC.CM.PN ---
pt lives with her dgter is independent has own ride home
[2024-07-11 15:58] VITALS: BP 109/63; PULSE 82; RESP 18; TEMP 36.6; O2SAT 99
--- NOTE | 2024-07-11 16:44 | P.HPGS_ITS ---
History of Present Illness History of Present Illness Date of Service: 07/10/24 Chief complaint: nephrolithiasis flank pain Narrative: Kamron Sarah is a 28 year old female with history of kidney stones. She presented to the emergency room with acute left flank pain. Renal ultrasound noted hydronephrosis and proximal 8 mm stone. Discussed pain management IV fluid hydration and stent with lithotripsy. Review of Systems Review of Systems: Yes all other systems are reviewed and are negative Constitutional: Constitutional: Reports no additional constitutional complaints Eyes: Eyes: Reports no additional eye complaints ENT: Reports system reviewed and no additional complaints, except as documented Cardiovascular: Cardiovascular: Reports no additional cardiovascular complaints Respiratory: Respiratory: Reports no additional respiratory complaints Gastrointestinal: Gastrointestinal: Reports no additional gastrointestinal complaints Genitourinary: Genitourinary: Reports as per HPI Musculoskeletal: Musculoskeletal: Reports no additional musculoskeletal complaints Integumentary/Breasts: Skin/Breast: Reports system reviewed and no additional complaints, except as docu Neurologic: Reports system reviewed and no additional complaints, except as documented Psychiatric: Psychiatric: Reports no additional psychiatric complaints Endocrine: Endocrine: Reports no additional endocrine complaints Hematologic/Lymphatic: Hematologic/Lymphatic: Reports no additional hematologic/lymphatic complaints Allergic/Immunologic: Allergic/Immunologic: Reports no additional allergic/immunologic complaints PMFSH Past Medical History Medical History Gestational diabetes 26 weeks gestation of Asthma COVID-19 Renal mass, left Vitamin D deficiency Obesity (BMI 30.0-34.9) Mild asthma Depression with anxiety Family History Family History Father Cancer Seizures Mother Hypertension Kidney stones Paternal Grandmother Breast cancer Diabetes mellitus Paternal Grandfather Diabetes mellitus Maternal Aunt Hypertension Other Mental health disorder Surgical History Surgical History History of tooth extraction Social History Social History Household Members: Children Housing: Apartment Do you presently have visiting nurse or other home services: No Alcohol intake: former Patient Tobacco Use Status: Never used Tobacco Smoked in Last 30 Days: No e-Cigarette/Vaping Use: Never Used Second Hand Smoke Exposure: No Use of substances other than those prescribed or required for medical reasons: No Currently Displaying Signs/Symptoms of Drug Intoxication Withdrawal: No Have you been hit, kicked, punched, or otherwise hurt by someone within the past year? If so, by whom?: No Do you feel safe in your current relationship?: No Current Relationship Is there a partner from a previous relationship who is making you feel unsafe now?: No Are you made to feel afraid or neglected: No Advance Directives: No Advance Directives Information Provided: No Advance Directives on File: No Do you have a plan to hurt others: No Plan Recently lost weight without trying: No How much weight loss: Not applicable Eating poorly because of decreased appetite: No Nutrition screen score: 0 Nutrition Risks: No Nutritional Risk Patient : No : No Poor oral hygiene: No service: No Current occupational status: employed 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 Gender identity: Female Cognitive needs: No Hearing needs: No Vision needs: Yes (glasses) Meds Allergies Allergy/AdvReac Type Severity Reaction Status Date / Time metronidazole [From Flagyl] Allergy Severe Hives , Verified 07/10/24 01:32 problems breathing Active Medications: Current Medications Acetaminophen (Acetaminophen 325 Mg Tablet) 650 mg PO Q6H PRN PRN Reason: Pain, Mild (Pain Scale 1-3), fever or headache Calcium Carbonate (Calcium Carbonate 750 Mg Tab.Chew) 750 mg PO Q4H PRN PRN Reason: Heartburn Hydromorphone HCl (Hydromorphone Hcl 1 Mg/Ml Syringe) 0.5 mg IVPUSH Q4H PRN; Protocol PRN Reason: Pain, Severe (Pain Scale 7-10) Ketorolac Tromethamine (Ketorolac Tromethamine 15 Mg/Ml Vial) 15 mg IVPUSH Q6H PRN PRN Reason: Pain, Mild (Pain Scale 1-3) Last Admin: 07/10/24 21:22 Dose: 15 mg Magnesium Hydroxide (Milk Of Magnesia 30 Ml Oral.Susp) 30 ml PO DAILY PRN PRN Reason: Constipation Melatonin (Melatonin 3 Mg Tablet) 6 mg PO BEDTIME PRN PRN Reason: Insomnia Ondansetron HCl (Ondansetron Hcl 4 Mg/2 Ml Vial) 4 mg IVPUSH Q8H PRN PRN Reason: Nausea and Vomiting Oxycodone HCl (Oxycodone Hcl Immed Release 5 Mg Tablet) 5 mg PO Q6H PRN PRN Reason: Pain, Severe (Pain Scale 4-6 Sodium Chloride (0.9 % Sodium Chloride Flush 3 Ml Syringe) 3 ml IVFLUSH QSHIFT [facility] Last Admin: 07/11/24 14:50 Dose: Not Given Home Medications ?Medication ?Instructions ?Recorded ?Confirmed ?Last Taken ?Type escitalopram oxalate 10 mg tablet 10 mg PO DAILY 07/24/23 07/10/24 07/08/24 History hydroxyzine HCl 10 mg tablet 10 mg PO BID PRN Anxiety 02/09/24 07/10/24 Unknown History Physical Exam Vital Signs: Vital Signs: Last Vital Signs Temp 97.9 F 07/11/24 15:58 Pulse 82 07/11/24 15:58 Resp 18 07/11/24 15:58 BP 109/63 07/11/24 15:58 Pulse Ox 99 07/11/24 15:58 O2 Del Method Room Air 07/11/24 15:58 BMI result Body Mass Index 28.3 Const: General: cooperative, healthy appearing and no acute distress Orientation/consciousness: patient oriented x3 HEENT: Head: Yes normal to inspection, Yes normocephalic and Yes atraumatic Eyes: Conjunctivae: conjunctivae normal Neck: Neck: Yes normal visual inspection and Yes trachea midline Chest: Chest palpation & inspection: normal inspection of the chest Resp: Effort & Inspection: normal respiratory effort Cardio: Rate: regular rate GI: Inspection: Yes normal to inspection Palpation (GI): Soft to palpation : General: Yes CVA tenderness (left) Back/Spine/Pelvis: Back: CVA tenderness (left) Neuro: General: patient oriented x3 Extrem: General: No edema Psych: Appearance: grossly normal Results Results Labs: Urine 07/10/24 Range/Units 02:17 Urine Color Yellow Urine Appearance Clear Urine pH 8.0 (5.0-9.0) Ur Specific [place] 1.020 (1.005-1.025) Urine Protein Trace (Neg-Trace) mg/dL Urine Glucose (UA) Negative (Negative) mg/dL Urine Test NEGATIVE (NEGATIVE) Assessment and Plan (1) Calculus of left ureter: Status: Acute (2) Hydronephrosis: Status: Acute (3) Flank pain: Status: Acute Plan IV fluid hydration, pain management, stent placement possible lithotripsy. Quality Stroke Does the patient have a stroke diagnosis?: No VTE Prior VTE?: No VTE Risk Level:: Surgical - low VTE Device Contraindication: Treatment Not Indicated VTE Drug Contraindication: Treatment Not Indicated Procedures Date of Service Date of Service: 07/11/24
--- NOTE | 2024-07-11 16:48 | P.PNUR_ITS ---
Subjective Subjective Date of Service: 07/11/24 Patient reports: feels better Interval history: The patient has not required pain medication for several hours and thinks she may have passed the stone. And is not sure if she still needs surgery. She has been NPO. I discussed re-evaluating with ultrasound. Physical Exam 2 Vital Signs: Vital Signs: Last Vital Signs Temp 97.9 F 07/11/24 15:58 Pulse 82 07/11/24 15:58 Resp 18 07/11/24 15:58 BP 109/63 07/11/24 15:58 Pulse Ox 99 07/11/24 15:58 O2 Del Method Room Air 07/11/24 15:58 BMI result Body Mass Index 28.3 Urology Results Labs 07/10/24 01:49 07/10/24 01:49 Progress Note: A&P Assessment and plan (1) Calculus of left ureter: Status: Acute (2) Hydronephrosis: Status: Acute (3) Flank pain: Status: Acute Plan Clinically the patient has improved and not requiring further pain medication. On examination there is still some mild CVA tenderness. Will check an ultrasound prior to surgical intervention. Time Spent With Patient Time: Total time managing care of this patient today ____ minutes. Progress Note: Quality Stroke Does the patient have a stroke diagnosis?: No
--- NOTE | 2024-07-11 16:55 | P.PNUR_ITS ---
Subjective Subjective Date of Service: 07/11/24 Interval history: Discussed ultrasound results with the patient left hydronephrosis persists the stone is no longer seen in the proximal ureter. Renal stone is seen in the lower pole of the left kidney. As the patient is asymptomatic, Will hold on any surgery at this time and follow-up in the office Physical Exam 2 Vital Signs: Vital Signs: Last Vital Signs Temp 97.9 F 07/11/24 15:58 Pulse 82 07/11/24 15:58 Resp 18 07/11/24 15:58 BP 109/63 07/11/24 15:58 Pulse Ox 99 07/11/24 15:58 O2 Del Method Room Air 07/11/24 15:58 BMI result Body Mass Index 28.3 Urology Results Labs 07/10/24 01:49 07/10/24 01:49 Progress Note: A&P Assessment and plan (1) Calculus of left ureter: Status: Acute (2) Hydronephrosis: Status: Acute (3) Flank pain: Status: Acute Plan Left hydronephrosis persists the stone is no longer seen in the proximal ureter. Renal stone is seen in the lower pole of the left kidney. As the patient is asymptomatic, Will hold on any surgery at this time and follow-up in the office Time Spent With Patient Time: Total time managing care of this patient today ____ minutes. Progress Note: Quality Stroke Does the patient have a stroke diagnosis?: No
--- NOTE | 2024-07-11 17:00 | PM.DS ---
DS: Providers Provider Date of Service: 07/11/24 Date of admission: 07/10/24 14:23 Date of discharge: 07/11/24 Primary care physician: Pily Cook MD Admitting clinician: Shaggy Severino Attending physician on discharge: Shaggy Severino DS: Diagnosis Discharge Diagnosis (1) Calculus of left ureter: Status: Inactive (2) Hydronephrosis: Status: Acute (3) Flank pain: Status: Resolved DS: Summary Hospital Course Hospital Course: Kamron Sarah is a 28 year old female with history of kidney stones. She presented to the emergency room 07/10/24 with acute left flank pain. Renal ultrasound noted hydronephrosis and proximal 8 mm stone. The patient was admitted for pain management, IV fluid hydration and stent with possible lithotripsy. On 07/11/24 the patient stated her pain had improved and she did not want a procedure. Repeat renal US was done which noted persistent hydronephrosis, the stone was not visualized and likely moved to a different position. Plan discussed was repeat imaging and outpatient follow up. Status at Discharge Functional status at discharge: independent ambulation Time Attestation Total time managing care of this patient today: 35 mintues. Discharge Coordination Time (in mins): 35 min Quality: Safe Use of Opioids Does Pt have an Active Cancer Diagnosis on the Problem List?: No Quality: Stroke Does the patient have a stroke diagnosis?: No Physical Exam Vital Signs: Vital Signs: Last Vital Signs Temp 97.9 F 07/11/24 15:58 Pulse 82 07/11/24 15:58 Resp 18 07/11/24 15:58 BP 109/63 07/11/24 15:58 Pulse Ox 99 07/11/24 15:58 O2 Del Method Room Air 07/11/24 15:58 BMI result Body Mass Index 28.3 DS: Data Imaging CT scan - abdomen: Radiologist's impression: ITS Impressions Renal Ultrasound 07/10/24 07:30 IMPRESSION: 1. Underlying medullary nephrocalcinosis. 2. Obstructing 8 x 4 mm calculus in the proximal left ureter with associated hydronephrosis and perinephric fluid. Electronically signed by: Trev Theodore MD 07/10/2024 10:00 AM EDT Renal Ultrasound 07/11/24 14:28 IMPRESSION: Hydronephrosis persists in the left kidney although the previously noted calculus in the proximal left ureter is not seen.. Electronically signed by: Anshul Clancy MD 07/11/2024 04:35 PM EDT RP Discharge Plan Discharge Anticipated Discharge Date/Time: 07/11/24 17:19 Patient Disposition: Home, Self-Care Discharge Diagnosis: Nephrolithiasis, Hydronephrosis Referrals: Pily Cook MD [Primary Care Provider] - 1 Week Discharge Medications: New tramadol 50 mg tablet 50 mg PO Q8H PRN (Reason: pain) Qty: 10 0RF tamsulosin 0.4 mg capsule 0.4 mg PO BEDTIME Qty: 14 0RF Continued tamsulosin 0.4 mg capsule 0.4 mg PO BEDTIME 14 Days Qty: 14 0RF escitalopram oxalate 10 mg tablet 10 mg PO DAILY ondansetron 4 mg tablet,disintegrating 4 mg PO Q8H PRN (Reason: nausea and vomiting) Qty: 20 0RF hydroxyzine HCl 10 mg tablet 10 mg PO BID PRN (Reason: Anxiety) Discontinued naproxen 500 mg tablet 250 mg PO BID 14 Days Qty: 14 0RF Discharge Orders: Discharge Order (Routine); Ordered 07/11/24 Ordered By: Shaggy Severino Diet: Advance to usual diet Activity on Discharge: As tolerated Stand Alone Forms: Patient Portal Discharge page Print Language: Japanese Care Plan Goals: Keep scheduled FU with Urology on 07/13/24 Health Concerns: Drink 48-64 ounces fluids, primarily water, avoid soda's Plan of Treatment: Further discussion on outpatient Follow up. Assessment: Clinically patient has improvement in renal colic symptoms. Discharge Date/Time: 07/11/24 18:46
== END 2024-07-11 18:46 | disposition home or self-care (01) | DRG 465 ==
LOC: HO.ED 14:34 → HO.EDOVER 14:42 → HO.S3 19:15
PROVIDERS: Emergency Medicine; Admitting Provider Urology; Emergency Provider Emergency Medicine Emergency Medical Services; PCP Specialist; Visit Provider Urology
DX: N13.2 Hydronephrosis with renal and ureteral calculous obstruction (principal); Q61.5 Medullary cystic kidney; Z79.899 Other long term (current) drug therapy
CPT/HCPCS: 36415; 76775; 80053; 81001; 81025; 83690; 85025; 99285; J1885; J2405; J7120

== ENCOUNTER → 2024-07-10 14:23 | Outpatient (BNV) | payer OTHER, SELFPAY | PROVIDERS: Admitting Provider Urology; Emergency Provider Emergency Medicine Emergency Medical Services; PCP Specialist; Visit Provider Urology | DX: N20.1 Calculus of ureter (principal); N13.30 Unspecified hydronephrosis; R10.9 Unspecified abdominal pain | CPT/HCPCS: 99223 ==

== ENCOUNTER 2024-07-12 11:33 | Outpatient (REF) | payer OTHER, SELFPAY ==
--- NOTE | ~2024-07-12 | XR_ITS ---
EXAMINATION: XR ABDOMEN KUB CLINICAL INDICATION: Calculus of kidney COMPARISON: Ultrasound renal 07/11/2024 CT abdomen and pelvis 07/01/2024 TECHNIQUE: AP view of the abdomen. FINDINGS: The bowel gas pattern is normal with no evidence of ileus or obstruction. 4 mm rounded stone cannot be seen overlying the lower pole of the left kidney which was also seen on the ultrasound performed yesterday and the CT scan performed on 07/01/2024 rounded midline calcification is seen centimeters above the pubic symphysis. An IUD is present in the uterus. Osteitis condensans ilii is noted. XR/XR KUB IMPRESSION: A 4 mm left lower pole renal calculus is present. Electronically signed by: Trev Theodore MD 07/12/2024 01:18 PM EDT
== END 2024-07-12 11:34 | disposition home or self-care (01) ==
LOC: HO.XRAY 11:33
PROVIDERS: Visit Provider Nurse Practitioner Family
DX: N20.0 Calculus of kidney (principal)
CPT/HCPCS: 74018

== ENCOUNTER 2024-07-13 14:56 | Outpatient (AMB) | payer OTHER, SELFPAY ==
--- NOTE | 2024-07-13 15:01 | MHC.OFFVIS ---
Intake Visit Reasons: 3w/CT/Discuss ESWL Intake Note: Patient presents today for follow up visit on: kidney stones Urology Medication: tamsulosin Antibiotic Allergy: metronidazole Blood Thinner: none Bottled Beverage Inspector Required: No Accompanied by: Self / Same As Patient Allergies metronidazole [From Flagyl] Allergy (Severe, Verified 07/13/24 15:55) Hives , problems breathing Medication List - Last Reconciled 07/13/24 by JET TabaresP- escitalopram oxalate 10 mg PO DAILY hydroxyzine HCl 10 mg PO BID PRN ondansetron 4 mg PO Q8H PRN tamsulosin 0.4 mg PO BEDTIME tamsulosin 0.4 mg PO BEDTIME 14 days tramadol 50 mg PO Q8H PRN HPI Comments Details: Kamron is a pleasant 28-year-old female patient of Dr. Romero. She has a past medical history of gestational diabetes, vitamin-D deficiency, asthma, depression, and anxiety. She presents to the office today for follow-up of her nephrolithiasis. Of note, patient was seen approximately 3 weeks ago at which time a CT KUB was ordered for further assessment evaluation however patient discusses having seeked emergency room care prior as she had been experiencing significant amounts of left-sided flank pain. In review of patient's chart it appears patient was admitted and has since been discharged. Recent KUB results reviewed with the patient today. 4 mm rounded stone can be seen overlying the lower pole of the left kidney which was also seen on previous renal ultrasounds. Patient brings with her today a fragment/stone she has urinated. Discussed sending for stone analysis. Also discussed near future metabolic workup to include labs and 24 hour urine. She does continue to report intermittent episodes of left flank pain. Both kidneys demonstrate clusters of pyramidal medullary calcification suggestive of medullary sponge kidney. She discusses having increased her fluid intake with water and feels this has been helpful however has continued with episodes of flank pain. She denies any previous history of nephrolithiasis and or surgical intervention for nephrolithiasis. She denies urinary urgency, urinary frequency, incontinence, nocturia, dysuria, foul smelling urine, changes to urinary stream, fever, and or chills. In office urinalysis results reviewed with the patient today. 2+ leukocytes, 2+ microscopic blood. She discusses at length her family history of nephrolithiasis and medullary sponge kidney. She otherwise offers no other issues or concerns at this time. [facility] Medical History Gestational diabetes 26 weeks gestation of Asthma COVID-19 Renal mass, left Vitamin D deficiency Obesity (BMI 30.0-34.9) Mild asthma Depression with anxiety Surgical History History of tooth extraction Family History Father Cancer Seizures Mother Hypertension Kidney stones Paternal Grandmother Breast cancer Diabetes mellitus Paternal Grandfather Diabetes mellitus Maternal Aunt Hypertension Other Mental health disorder Social History Household Members: Children Both parents involved: No Housing: Apartment Do you presently have visiting nurse or other home services: No Alcohol intake: former Patient Tobacco Use Status: Never used Tobacco e-Cigarette/Vaping Use: Never Used Second Hand Smoke Exposure: No service: No Current occupational status: employed 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 Gender identity: Female Cognitive needs: No Hearing needs: No Vision needs: Yes (glasses) Female Reproductive History Menstrual Age of Menarche: 14 Review of Systems Const All systems reviewed & are unremarkable except as noted in HPI and below Physical Exam Const General: cooperative, healthy appearing, comfortable, no acute distress, well developed, alert and awake Orientation/consciousness: patient oriented x3 Limitations: no limitations HEENT Head: Yes normal to inspection, Yes normocephalic and Yes atraumatic Ears: hearing grossly normal bilaterally Eyes General: appearance normal, both eyes and all related structures Neck Neck: Yes normal visual inspection and Yes trachea midline Chest Chest palpation & inspection: normal inspection of the chest Resp Effort & Inspection: normal respiratory effort and able to speak in complete sentences Cardio Rate: regular rate GI Inspection: Yes normal to inspection General: Yes no CVA tenderness Back/Spine/Pelvis Back: no CVA tenderness Skin General skin exam: no rashes or lesions noted Neuro General: patient oriented x3 Extrem General: Yes normal to inspection Psych Appearance: grossly normal and well kempt Mental Status: mental status grossly normal Speech and movement: Normal speech and movement present and Clear speech present Affect: normal affect Attitude: cooperative Thought process: Normal thought process present Thought content: Normal thought content present Insight: Fair insight present (Psych) Judgement: Fair judgement present (Psych) Results AMB Urinalysis, Automated UA Leukoctes 125 Jamie/uL Last Edit by Singh Lee on 07/13/24 15:23 UA Nitrite Negative Last Edit by Singh Lee on 07/13/24 15:23 UA Urobilinogen 0.2 mg/dL Last Edit by Singh Lee on 07/13/24 15:23 UA Protein 0 mg/dL Last Edit by Singh Lee on 07/13/24 15:23 UA pH 6.0 Last Edit by Singh Lee on 07/13/24 15:23 UA Blood 200 Roel/uL Last Edit by Singh Lee on 07/13/24 15:23 UA Specific Jackson 1.010 Last Edit by Singh Lee on 07/13/24 15:23 UA Ketone Negative Last Edit by Singh Lee on 07/13/24 15:23 UA Bilirubin 0 mg/dL Last Edit by Singh Lee on 07/13/24 15:23 UA Glucose 0 mg/dL Last Edit by Singh Lee on 07/13/24 15:23 Results Reviewed Results Reviewed: Laboratory Last Values Urine pH (Auto) 6.0 07/13/24 15:22 Specific Jackson (Auto) 1.010 07/13/24 15:22 Urine Protein (Auto) 0 mg/dL 07/13/24 15:22 Glucose (UA)(Auto) 0 mg/dL 07/13/24 15:22 Urine Ketones (Auto) Negative 07/13/24 15:22 Urine Blood (Auto) 200 Roel/uL 07/13/24 15:22 Urine Nitrite (Auto) Negative 07/13/24 15:22 Urine Bilirubin (Auto) 0 mg/dL 07/13/24 15:22 Urine Urobilinogen (Auto) 0.2 mg/dL 07/13/24 15:22 Leukocyte Esterase (Auto) 125 Jamie/uL 07/13/24 15:22 Date of Service: 07/12/24 EXAMINATION: XR ABDOMEN KUB FINDINGS: The bowel gas pattern is normal with no evidence of ileus or obstruction. 4 mm rounded stone cannot be seen overlying the lower pole of the left kidney which was also seen on the ultrasound performed yesterday and the CT scan performed on 07/01/2024 rounded midline calcification is seen centimeters above the pubic symphysis. An IUD is present in the uterus. Osteitis condensans ilii is noted. IMPRESSION: A 4 mm left lower pole renal calculus is present. Assessment & Plan Assessment & Plan (1) Medullary sponge kidney of both kidneys: Code(s): Q61.5 - Medullary cystic kidney Category: Medical (2) Nephrolithiasis: Code(s): N20.0 - Calculus of kidney Category: Medical (3) Flank pain: Code(s): R10.9 - Unspecified abdominal pain Category: Medical Plan: Plan Extracorporeal Shock Wave Lithotripsy We discussed the nature of the decision and reasonable alternatives for performing the above surgery. Interventions include chemical dissolution, ESWL, ureteroscopy with laser lithotripsy and stent placement, PCNL. ? Options such as medical therapy were discussed. The relative uncertainties and benefits related to each alternate procedure were adequately discussed. General surgical risks including, but not limited to, pain, bleeding, infection, myocardial infarction, pulmonary embolus, deep vein thrombosis and cerebrovascular accident which may result in further hospitalization were discussed.? Full disclosure of the procedure as well as all major risks, benefits and complications were discussed including but not limited to risks of bleeding, injury to the kidney with hematoma or geraldo-hematoma, failure to fragments stone, potential for ureteric obstruction from stone passage and need for secondary procedures.? There is a small long-term risk of hypertension and a question jonathon of diabetes.? Success rate of fragmentation and passage is approximately 70- 75%.? This is compared to the risks and benefits for ureteroscopy which has a higher success rate but is a more invasive procedure. The success rate of the procedure was discussed. Success of the procedure in the short-term does not necessarily guarantee that long-term success will be maintained. Suitable follow up will need to be maintained. The patient showed understanding of the discussion as well as the typical recovery time, and the outpatient nature of this procedure. Opportunity was given for questions. Repeat-back protocol used to confirm understanding. They wish to proceed with left ESWL Plan In office urinalysis results reviewed with the patient today; as noted above. Will send stone for stone analysis. Recent KUB results reviewed with the patient today; as noted above. Discussed, educated, and stressed the importance of adequate hydration relation to nephrolithiasis as well as overall health and well-being. Discussed near future metabolic workup to include 24 hour urine collection and labs. Referral submitted for Nephrology patient would like to establish care. Discussed surveillance monitoring verses surgical intervention of left-sided nephrolithiasis; risks and benefits of these interventions were discussed. Will schedule for left-sided ESWL as discussed Follow-up per doctor's orders; or sooner with any issues, concerns, and or questions. Orders: Orders AMB Urinalysis Automated 07/13/24 Z13.9 - Encounter for screening, unspecified Surgical 07/13/24 N20.0 - Calculus of kidney Referrals Nephrology Referral Q61.5 - Medullary cystic kidney Patient Instructions: The patient had an opportunity to ask questions regarding the treatment plan. All questions were answered. Physical exam, labs, and imaging were discussed and reviewed in detail. As well as risks, benefits, and discussion of treatment choices. No major barriers to understanding were identified. The patient expressed understanding and agreement with the above treatment plan. The patient was made aware they should contact our office by phone for worsening of their current condition, the appearance of new symptoms, or with any questions or concerns. Compliance is encouraged with any medications and follow up testing that is ordered. It is a privilege to be allowed the opportunity to participate in? your urological care.? Again, if you have any questions or concerns If you have any questions or concerns please do not hesitate to contact me. The office is [phone]. This note is constructed using voice recognition software. While every effort has been made to ensure accuracy home theater experience expert errors may have been included. Yours sincerely, BEATRICE Tabares Coding Level of Care Code Est Pt Level 4 (55021) Diagnoses Medullary sponge kidney of both kidneys Q61.5 Nephrolithiasis N20.0 Flank pain R10.9
== END 2024-07-13 15:56 | disposition home or self-care (01) ==
PROVIDERS: PCP Nurse Practitioner Family; Visit Provider Nurse Practitioner Family
DX: Q61.5 Medullary cystic kidney (principal); N20.0 Calculus of kidney; R10.9 Unspecified abdominal pain
CPT/HCPCS: 99214

== ENCOUNTER 2024-07-13 14:56 | Outpatient (REF) | payer OTHER, SELFPAY ==
[2024-07-22 19:39] LABS: Stone Source KIDNEY
== END 2024-07-13 14:57 | disposition home or self-care (01) ==
LOC: HO.LNP 14:56
PROVIDERS: PCP Nurse Practitioner Family; Visit Provider Nurse Practitioner Family
DX: N20.0 Calculus of kidney (principal); Q61.5 Medullary cystic kidney; R10.9 Unspecified abdominal pain
CPT/HCPCS: 81003; 82365; 88300; 99212

== ENCOUNTER 2024-07-18 09:14 | Day surgery (SDC) | payer OTHER, SELFPAY ==
--- NOTE | 2024-07-17 10:21 | HO.ANESPROP2 ---
Documented by User: Joy Subramanian NP 07/17/24 10:25 HPI - Anesthesia Eval Consult details Narrative: 28yo F for Left ESWL PMFSH Active Problems Active Problems: All Active Problems Medullary sponge kidney of both kidneys (Acute) Calculus of left ureter (Acute) Hydronephrosis (Acute) Renal colic (Acute) Flank pain (Acute) Hydronephrosis (Acute) Nephrolithiasis (Acute) IUD check up (Acute) Encounter for IUD insertion (Acute) Family planning (Acute) Complete (Acute) Ectopic (Acute) IUD migration (Acute) Well woman exam (Acute) Bad odor of urine (Acute) Gestational diabetes (Acute) Anxiety and depression (Acute) Asthma, intermittent (Acute) Screening-pulmonary TB (Acute) Physical exam (Acute) Potential exposure to STD (Acute) Bacterial vaginosis (Acute) Weight gain (Acute) Exposure to herpes simplex virus (HSV) (Acute) Encounter for annual routine gynecological examination (Acute) Pelvic pain in female (Acute) Irregular menses (Acute) Recurrent UTI (urinary tract infection) (Acute) Encounter to discuss test results (Acute) PCOS (polycystic ovarian syndrome) (Acute) Elevated testosterone level in female (Acute) Elevated DHEA (Acute) Nausea (Acute) Renal mass, left (Acute) Vitamin D deficiency (Acute) Obesity (BMI 30.0-34.9) (Acute) Mild asthma (Acute) Depression with anxiety (Acute) Past Medical History Medical History Gestational diabetes Asthma COVID-19 Renal mass, left Vitamin D deficiency Obesity (BMI 30.0-34.9) Depression with anxiety Family History Family History Father Cancer Seizures Mother Hypertension Kidney stones Paternal Grandmother Breast cancer Diabetes mellitus Paternal Grandfather Diabetes mellitus Maternal Aunt Hypertension Other Mental health disorder Surgical History Surgical History History of tooth extraction Social History Social History Household Members: Children Housing: Apartment Do you presently have visiting nurse or other home services: No Alcohol intake: former Patient Tobacco Use Status: Never used Tobacco e-Cigarette/Vaping Use: Never Used Second Hand Smoke Exposure: No Use of substances other than those prescribed or required for medical reasons: No Have you been hit, kicked, punched, or otherwise hurt by someone within the past year? 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 Gender identity: Female Cognitive needs: No Hearing needs: No Vision needs: Yes (glasses) Meds Allergies Allergy/AdvReac Type Severity Reaction Status Date / Time metronidazole [From Flagyl] Allergy Severe Hives , Verified 07/13/24 15:55 problems breathing Home Medications ?Medication ?Instructions ?Recorded ?Confirmed ?Last Taken ?Type escitalopram oxalate 10 mg tablet 10 mg PO DAILY 07/24/23 07/10/24 07/08/24 History hydroxyzine HCl 10 mg tablet 10 mg PO BID PRN Anxiety 02/09/24 07/10/24 Unknown History Exam Pertinent Lab Results Pertinent Lab Results: Laboratory Tests 07/10/24 01:49 WBC 14.4 H Hgb 12.3 Hct 36.3 L Plt Count 320 Sodium 134 L Potassium 3.7 Chloride 103 Carbon Dioxide 19 L BUN 14 Creatinine 0.89 Assessment and Plan Assessment Anesthesia Assessment: Chart Reviewed Documented by User: Xi Reese MD 07/18/24 13:10 PMFSH Past Medical History Medical History Gestational diabetes Asthma COVID-19 Renal mass, left Vitamin D deficiency Obesity (BMI 30.0-34.9) Depression with anxiety Family History Family History Father Cancer Seizures Mother Hypertension Kidney stones Paternal Grandmother Breast cancer Diabetes mellitus Paternal Grandfather Diabetes mellitus Maternal Aunt Hypertension Other Mental health disorder Family history of problems with anesthesia: No Surgical History Surgical History History of tooth extraction History of Problems with Anesthesia: No Social History Social History Household Members: Children Housing: Apartment Do you presently have visiting nurse or other home services: No Alcohol intake: former Patient Tobacco Use Status: Never used Tobacco e-Cigarette/Vaping Use: Never Used Second Hand Smoke Exposure: No Use of substances other than those prescribed or required for medical reasons: No Have you been hit, kicked, punched, or otherwise hurt by someone within the past year? 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 Gender identity: Female Cognitive needs: No Hearing needs: No Vision needs: Yes (glasses) Meds Allergies Allergy/AdvReac Type Severity Reaction Status Date / Time metronidazole [From Flagyl] Allergy Severe Hives , Verified 07/13/24 15:55 problems breathing Home Medications ?Medication ?Instructions ?Recorded ?Confirmed ?Last Taken ?Type escitalopram oxalate 10 mg tablet 10 mg PO DAILY 07/24/23 07/10/24 07/08/24 History hydroxyzine HCl 10 mg tablet 10 mg PO BID PRN Anxiety 02/09/24 07/10/24 Unknown History Exam Airway Mallampati Class: II TM Dist: >3cm Neck ROM: Full Heart: rrr Lungs: cta Assessment and Plan Assessment Anesthesia Assessment: Anesthesia Plan Discussed Final Anesthetic Review Family History of Problems with Anesthesia: No History of Problems with Anesthesia: No NPO: Yes ASA Class: II Final Preanesthetic Review: No Changes in Pt Med Stat, Meds/Allgs Chart Reviewed, Consent Obtained/Reviewed and Anes Risks/Benef Reviewed Patient Risk: Low Procedure Risk: Low Anesthetic Plan Anesthetic Plan: GA Disposition: Standard PACU
--- NOTE | ~2024-07-18 | XR_ITS ---
EXAMINATION: XR ABDOMEN KUB CLINICAL INDICATION: Left ESWL. COMPARISON: Abdominal radiograph 07/12/2024. TECHNIQUE: AP view of the abdomen. FINDINGS: Stable 4 mm calcification overlying the left lower renal shadow. No new calculi. Nonobstructive bowel gas pattern. Moderate degree of colonic and rectal stool burden. No acute osseous findings. Lung bases are clear. IUD noted in the pelvis. XR/XR KUB IMPRESSION: 1. Stable 4 mm calcification overlying the left lower renal shadow. 2. No new calculi. 3. Moderate colonic and rectal stool burden. Electronically signed by: Yumiko Henderson MD 08/06/2024 04:06 PM EDT
[2024-07-18 10:20] LABS: UPreg QC Valid YES; Urine Pregnancy NEGATIVE (NEGATIVE)
[2024-07-18 12:33] VITALS: BP 122/71; PULSE 65; RESP 16; TEMP 36.7; O2SAT 98; BMI 27.2
[2024-07-18] MEDS: Lactated Ringers 1,000 ML 100 ML IVCONT (12:53)
--- NOTE | 2024-07-18 14:26 | W.PM.OPN ---
Operative Note Operative Note Date of Service: 07/18/24 Narrative: PreOperative Diagnosis:? ? Left Renal stone Post Operative Diagnosis:?Left? Renal stone Procedure:?Left? ESWL Surgeon:?Dr Shaggy Severino Anesthesia:? General Indications for procedure: The patient understands there is a risk of bruising or hematoma to the kidney, infection, and stone migration following the procedure and subsequent intervention may be required.? - Imaging 5 x 4 mm stone Procedure: After informed consent was verified the patient was brought to the operating room and placed in a supine position.? Anesthesia was performed per protocol. Safety pause time-out was performed. Imaging was displayed in the room and laterality confirmed. ESWL was performed.?The stone was visualized on both fluoroscopy and ultrasound.? Shockwave lithotripsy was performed, with a maximum rate of 180 hertz. The first 300 shocks at 60 hertz followed by a pause for 3 minutes was completed.? A total of 2500 shocks to a maximum of power of 17 with a maximum rate of 180 hertz.? Some fragmentation of the stone was appreciated. The patient tolerated the procedure well and was transferred to the recovery area upon completion. Complications: None
[2024-07-18 14:31] VITALS: BP 117/73; PULSE 98; RESP 16; TEMP 37.1; O2SAT 100
[2024-07-18 14:35] VITALS: BP 122/75; PULSE 77; RESP 16; O2SAT 100
[2024-07-18 14:40] VITALS: BP 122/75; PULSE 84; RESP 16; O2SAT 100
[2024-07-18 14:45] VITALS: BP 122/75; PULSE 80; RESP 16; O2SAT 100
[2024-07-18 15:00] VITALS: BP 122/75; PULSE 98; RESP 16; TEMP 37.1; O2SAT 100
== END 2024-07-18 16:00 | disposition home or self-care (01) ==
PROVIDERS: Nurse Practitioner; PCP Specialist; Visit Provider Urology
PROC: (CPT 50590; principal; 2024-07-18 11:50)
DX: N20.0 Calculus of kidney (principal); R10.9 Unspecified abdominal pain; N13.30 Unspecified hydronephrosis; O24.419 Gestational diabetes mellitus in pregnancy, unspecified control; Z3A.26 26 weeks gestation of pregnancy; Q61.5 Medullary cystic kidney; E55.9 Vitamin D deficiency, unspecified; J45.909 Unspecified asthma, uncomplicated; F41.8 Other specified anxiety disorders; Z79.899 Other long term (current) drug therapy; Z88.1 Allergy status to other antibiotic agents
CPT/HCPCS: 50590; 74018; 81025; J0131; J0690; J2250; J2704

== ENCOUNTER → 2024-07-18 09:14 | Outpatient (BNV) | payer OTHER, SELFPAY | PROVIDERS: PCP Specialist; Visit Provider Urology | DX: N20.0 Calculus of kidney (principal) | CPT/HCPCS: 50590 ==

== ENCOUNTER 2024-07-20 16:28 | Outpatient (REF) | payer OTHER, SELFPAY ==
--- NOTE | ~2024-07-20 | US_ITS ---
EXAMINATION: US RETROPERITONEAL LIMITED (RENAL ONLY) CLINICAL INFORMATION: Unspecified hydronephrosis. COMPARISON: X-ray abdomen KUB 07/20/2024 and 07/18/2024. Ultrasound kidneys and bladder 07/11/2024 and 07/10/2024. CT abdomen and pelvis 07/01/2024. TECHNIQUE: Real-time imaging of the kidneys. FINDINGS: RIGHT KIDNEY: 11.1 x 3.2 x 4.6 cm (SAG x AP x TRV). The kidney is normal in size, contour with brightly echogenic medullary pyramids consistent with medullary sponge kidney. Renal cortical thickness is normal. No calculi or focal parenchymal lesions. No hydronephrosis. LEFT KIDNEY: 11.9 x 4.0 x 4.4 cm (SAG x AP x TRV). The kidney is normal in size, contour with brightly echogenic medullary pyramids consistent with medullary sponge kidney. Renal cortical thickness is normal. There is a lower pole echogenic focus measuring 5 mm with twinkle artifact consistent with a nonobstructing calculus. No hydronephrosis. A benign lower pole 0.5 cm Bosniak class I renal cyst is noted which requires no additional imaging or follow up. No solid renal masses are seen. US/US renal BI IMPRESSION: 1. Medullary sponge kidney. Similar findings were seen on the prior CT scan. 2. Nonobstructing 5 mm left lower pole calculus. Bilateral renal calculi could be seen on the prior CT scan just over 1 week ago Electronically signed by: Trev Theodore MD 08/01/2024 12:29 PM EDT
--- NOTE | ~2024-07-20 | XR_ITS ---
EXAMINATION: XR ABDOMEN KUB CLINICAL INDICATION: Hydronephrosis COMPARISON: 07/18/2024 TECHNIQUE: AP view of the abdomen. FINDINGS: Nonobstructive bowel obstruction. Redemonstration of a 4 mm calcification overlying the left lower renal shadow. No new calculi. Redemonstration of intrauterine device in the pelvis. Lung bases are clear. XR/XR KUB IMPRESSION: Redemonstration of a 4 mm calcification overlying the left lower renal shadow. No new calculi. Electronically signed by: Jewels Warner MD 08/07/2024 04:34 PM EDT
== END 2024-07-20 16:29 | disposition home or self-care (01) ==
LOC: HO.US 16:28
PROVIDERS: Visit Provider Urology
DX: N13.30 Unspecified hydronephrosis (principal); N20.0 Calculus of kidney; Q61.5 Medullary cystic kidney
CPT/HCPCS: 74018; 76775

== ENCOUNTER 2024-08-22 15:50 | Outpatient (AMB) | payer MEDICAID, SELFPAY ==
--- NOTE | 2024-08-22 16:15 | HO.NEPHOV ---
Vital Signs 08/22/24 16:16 Height 5 ft Weight 139 lb 2 oz BMI 27.2 BP 102/68 Blood Pressure Location Rt brachial Pulse 86 Pulse Source Pulse Oximeter Pulse Oximetry (%) 98 Oxygen Delivery Method Room Air Intake Visit Reasons: Medullary cystic kidney Store Stock Associate Required: No Accompanied by: Child Allergies metronidazole [From Flagyl] Allergy (Severe, Verified 08/22/24 16:18) Hives , problems breathing HPI Comments Details: I had the pleasure of seeing Kamron in consultation for medullary sponge kidney and nephrolithiasis. She initially had flank pain as well as hydronephrosis She had ESWL and stenting and had been followed up by Urology. She has carbonate Apatite ( Dahllite) stones. She has strong family H/O medullary sponge kidney( Mom, mom's sister, first cousins). Mom has CKD from recurrent stone issues. She does not have any flank pain, hematuria or flank pain now. Her renal function is normal. [facility] Medical History Gestational diabetes Asthma COVID-19 Renal mass, left Vitamin D deficiency Obesity (BMI 30.0-34.9) Depression with anxiety Surgical History History of tooth extraction Family History Father Cancer Seizures Mother Hypertension Kidney stones Paternal Grandmother Breast cancer Diabetes mellitus Paternal Grandfather Diabetes mellitus Maternal Aunt Hypertension Other Mental health disorder Social History Household Members: Children Both parents involved: No Housing: Apartment Do you presently have visiting nurse or other home services: No Alcohol intake: former Patient Tobacco Use Status: Never used Tobacco e-Cigarette/Vaping Use: Never Used Second Hand Smoke Exposure: No service: No Current occupational status: employed 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 Gender identity: Female Cognitive needs: No Hearing needs: No Vision needs: Yes (glasses) Female Reproductive History Menstrual Age of Menarche: 14 Review of Systems Const All systems reviewed & are unremarkable except as noted in HPI and below Physical Exam Vital Signs: Last Vital Signs Pulse 86 08/22/24 16:16 BP 102/68 08/22/24 16:16 Pulse Ox 98 08/22/24 16:16 Oxygen Delivery Method Room Air 08/22/24 16:16 BMI result Body Mass Index 27.2 Const General: comfortable and no acute distress Orientation/consciousness: patient oriented x3 HEENT Head: Yes normocephalic Mouth: Normal oral and palatal mucosa present Eyes EOM: EOMs intact bilaterally Neck Neck: Yes supple Resp Auscultation: clear to auscultation bilaterally Cardio Jugular venous distension: no JVD Rate: regular rate GI Palpation (GI): Soft to palpation Auscultation: normal bowel sounds General: Yes no CVA tenderness Back/Spine/Pelvis Back: no CVA tenderness Skin General skin exam: no rashes or lesions noted Neuro General: patient oriented x3 and moves all extremities Extrem General: Yes no pedal edema Results Reviewed Nephrology Results: Hgb 12.3 g/dl (12.0-16.0) 07/10/24 WBC 14.4 X10*3/uL (4.8-10.8) H 07/10/24 Plt Count 320 X10*3/uL (160-400) 07/10/24 Sodium 134 mmol/L (135-145) L 07/10/24 Potassium 3.7 mmol/L (3.3-5.1) 07/10/24 Chloride 103 mmol/L (96-108) 07/10/24 Carbon Dioxide 19 mmol/L (22-29) L 07/10/24 BUN 14 mg/dL (9-16) 07/10/24 Creatinine 0.89 mg/dL (0.5-1.4) 07/10/24 Calcium 9.0 mg/dL (8.4-10.2) 07/10/24 Urine Protein Trace mg/dL (Neg-Trace) 07/10/24 Renal US 07/20/24 Assessment & Plan Assessment & Plan (1) Medullary sponge kidney of both kidneys: Code(s): Q61.5 - Medullary cystic kidney Category: Medical (2) Nephrolithiasis: Code(s): N20.0 - Calculus of kidney Category: Medical Plan She has carbonate Apatite ( Dahllite) stones Low sodium diet; Increase citrate intake Adequate hydration; Low sodium in diet ( has strong family H/O medullary sponge kidney) Started PO HCTZ 12.5 mg daily( side effects explained) May benefit from K citrate PO; Urology following Shall do a 24 hour urine for screening later Will need follow up renal imaging Time spent retrieving/reviewing data/encounter/documentation 54 mts Follow up blood work ordered; F/U given Orders: Orders Blood Urea Nitrogen 6 Weeks Q61.5 - Medullary cystic kidney Calcium 6 Weeks Q61.5 - Medullary cystic kidney Creatinine 6 Weeks Q61.5 - Medullary cystic kidney Electrolytes 6 Weeks Q61.5 - Medullary cystic kidney Medications: New hydrochlorothiazide 12.5 mg PO DAILY 30 tabs 3RF Coding Level of Care Code New Pt Level 5 (04719) Diagnoses Medullary sponge kidney of both kidneys Q61.5 Nephrolithiasis N20.0
[2024-08-22 16:16] VITALS: BP 102/68; PULSE 86; O2SAT 98; BMI 27.2
== END 2024-08-22 16:40 | disposition home or self-care (01) ==
PROVIDERS: PCP Specialist; Referring Provider Nurse Practitioner Family; Visit Provider Internal Medicine Nephrology
DX: Q61.5 Medullary cystic kidney (principal); N20.0 Calculus of kidney; Z84.1 Family history of disorders of kidney and ureter
CPT/HCPCS: 99204

== ENCOUNTER → 2024-08-22 15:50 | Outpatient (BNVA) | payer MEDICAID, SELFPAY | PROVIDERS: PCP Specialist; Referring Provider Nurse Practitioner Family; Visit Provider Internal Medicine Nephrology | DX: Q61.5 Medullary cystic kidney (principal); N20.0 Calculus of kidney | CPT/HCPCS: 99202 ==

== ENCOUNTER 2024-08-30 13:49 | Outpatient (AMB) | payer OTHER, SELFPAY ==
--- NOTE | 2024-08-30 13:50 | A.OFFVIS_ITS ---
Intake Visit Reasons: ESWL-follow up/US(set) Intake Note: Patient presents today for televisit follow up visit on: kidney stones Urology Medication: tamsulosin Antibiotic Allergy: metronidazole Blood Thinner: none Optometrist Assistant Required: No Accompanied by: Self / Same As Patient Allergies metronidazole [From Flagyl] Allergy (Severe, Verified 08/30/24 13:56) Hives , problems breathing Medication List - Last Reconciled 08/30/24 by [facility] escitalopram oxalate 10 mg PO DAILY hydrochlorothiazide 12.5 mg PO DAILY tamsulosin 0.4 mg PO BEDTIME PRN tramadol 50 mg PO Q8H PRN HPI Comments Details: Kamron is a pleasant 28-year-old female patient of Dr. Romero. She has a past medical history of gestational diabetes, vitamin-D deficiency, asthma, depression, and anxiety. She is being followed up on today via telehealth for her nephrolithiasis. Of note, patient was status post left-sided ESWL 07/[address] Clark. Recent KUB results reviewed with the patient today. 07/20/24 redemonstration of a 4 mm calcification overlying the left lower renal shadow. No new renal calculi. In discussion with the patient today she reports having followed up with Nephrology at which time recommendations were made for initiation of hydrochlorothiazide however she reports she has not yet started this medication. When asked she denies urinary urgency, urinary frequency, incontinence, nocturia, dysuria, foul smelling urine, changes to urinary stream, fever, and or chills. She does however report noting cloudy urine. We discussed obtaining metabolic workup to include 24 hour urine collection. She reports to be drinking approximately 2 to 2.5 L of water a day and adding 1 oz of lemon juice to water daily. She discusses at length her family history of nephrolithiasis and medullary sponge kidney. She otherwise offers no other issues or concerns at this time. [facility] Medical History Gestational diabetes Asthma COVID-19 Renal mass, left Vitamin D deficiency Obesity (BMI 30.0-34.9) Depression with anxiety Surgical History History of tooth extraction Family History Father Cancer Seizures Mother Hypertension Kidney stones Paternal Grandmother Breast cancer Diabetes mellitus Paternal Grandfather Diabetes mellitus Maternal Aunt Hypertension Other Mental health disorder Social History Household Members: Children Both parents involved: No Housing: Apartment Do you presently have visiting nurse or other home services: No Alcohol intake: former Patient Tobacco Use Status: Never used Tobacco e-Cigarette/Vaping Use: Never Used Second Hand Smoke Exposure: No service: No Current occupational status: employed 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 Gender identity: Female Cognitive needs: No Hearing needs: No Vision needs: Yes (glasses) Female Reproductive History Menstrual Age of Menarche: 14 Review of Systems Const All systems reviewed & are unremarkable except as noted in HPI and below Physical Exam Const General: cooperative Orientation/consciousness: patient oriented x3 Resp Effort & Inspection: normal respiratory effort Neuro General: patient oriented x3 Psych Attitude: cooperative Thought process: Normal thought process present Thought content: Normal thought content present Insight: Fair insight present (Psych) Judgement: Fair judgement present (Psych) Telehealth Telehealth Telehealth Platform: Telephone Location of provider rendering services: practice address Location of patient: address on file Patient Identification confirmed using: Name, : Yes Telehealth method: voice only Patient verbally consented to treatment: Yes Patient verbally consented to billing insurance company: Yes Patient informed of any privacy concerns related to visit: Yes Minutes spent on Phone/Video with Pt.: 20 Results Reviewed Results Reviewed: Date of Service: 07/20/24 EXAMINATION: XR ABDOMEN KUB FINDINGS: Nonobstructive bowel obstruction. Redemonstration of a 4 mm calcification overlying the left lower renal shadow. No new calculi. Redemonstration of intrauterine device in the pelvis. Lung bases are clear. IMPRESSION: Redemonstration of a 4 mm calcification overlying the left lower renal shadow. No new calculi. Assessment & Plan Assessment & Plan (1) Cloudy urine: Code(s): R82.90 - Unspecified abnormal findings in urine Category: Medical (2) Medullary sponge kidney of both kidneys: Code(s): Q61.5 - Medullary cystic kidney Category: Medical (3) Nephrolithiasis: Code(s): N20.0 - Calculus of kidney Category: Medical Plan Recent KUB results reviewed with the patient today; as noted above. Will obtain 24 hour urine collection for further assessment evaluation. Will obtain renal ultrasound in 3 months. Order submitted for urinalysis as patient reporting at times she is experiencing cloudy urine. Discussed, educated, and stressed the importance of adequate hydration relation to nephrolithiasis as well as overall health and well being. Continue adding 1 oz of lemon juice to water daily. Follow-up in 3 months with 24 hour urine collection and imaging; or sooner with any issues, concerns, and or questions. Orders: Orders US renal BI 3 Months N20.0 - Calculus of kidney UA and rflx microscopic Today R82.90 - Unspecified abnormal findings in urine URORISK Today N20.0 - Calculus of kidney Patient Instructions: The patient had an opportunity to ask questions regarding the treatment plan. All questions were answered. Physical exam, labs, and imaging were discussed and reviewed in detail. As well as risks, benefits, and discussion of treatment choices. No major barriers to understanding were identified. The patient expressed understanding and agreement with the above treatment plan. The patient was made aware they should contact our office by phone for worsening of their current condition, the appearance of new symptoms, or with any questions or concerns. Compliance is encouraged with any medications and follow up testing that is ordered. It is a privilege to be allowed the opportunity to participate in? your urological care.? Again, if you have any questions or concerns If you have any questions or concerns please do not hesitate to contact me. The office is [phone]. This note is constructed using voice recognition software. While every effort has been made to ensure accuracy [employer] res[employer] errors may have been included. Yours sincerely, BEATRICE Tabares Coding Level of Care Code Tele Est Pt Level 3 (92343) Diagnoses Cloudy urine R82.90 Medullary sponge kidney of both kidneys Q61.5 Nephrolithiasis N20.0 Time Spent (min) 20
== END 2024-08-30 16:07 | disposition home or self-care (01) ==
LOC: HO.HUSH 13:49
PROVIDERS: PCP Specialist; Visit Provider Nurse Practitioner Family
DX: R82.90 Unspecified abnormal findings in urine (principal); Q61.5 Medullary cystic kidney; N20.0 Calculus of kidney
CPT/HCPCS: 99024

== ENCOUNTER → 2024-08-30 13:49 | Outpatient (BNVA) | payer OTHER, SELFPAY | PROVIDERS: PCP Specialist; Visit Provider Nurse Practitioner Family | DX: N20.0 Calculus of kidney (principal); Q61.5 Medullary cystic kidney; R82.90 Unspecified abnormal findings in urine | CPT/HCPCS: 99212 ==

== ENCOUNTER 2024-10-22 08:48 | Outpatient (REF) | payer OTHER, SELFPAY ==
[2024-10-22 09:41] LABS: Appearance Urine Clear; Color Urine Yellow; Glucose Urine UA Negative (Negative); Leukocyte Esterase Urine Moderate (2+) (Negative); Nitrite Urine Negative (Negative); Specific Gravity - Urine 1.015 (1.005-1.025); UMIC TRIGGER UA YES; Urine Blood Trace (Negative); Urine Ketones Negative (Negative); Urine Protein Negative (Neg-Trace)
[2024-10-22 09:46] LABS: Bacteria Urine 1+ (None Seen); Hyaline Casts Urine 0-2 /LPF (0-2)
[2024-10-22 09:55] LABS: Anion Gap 9 (12-20); Blood Urea Nitrogen 9 mg/dL (9-16); Calcium 8.9 mg/dL (8.4-10.2); Carbon Dioxide 25 mmol/L (22-29); Chloride 105 mmol/L (96-108); Estimated Glomerular Filt Rate > 60; Potassium 3.6 mmol/L (3.3-5.1); Sodium 135 mmol/L (135-145)
== END 2024-10-22 08:49 | disposition home or self-care (01) ==
LOC: HO.LAB 08:48
PROVIDERS: PCP Specialist; Referring Provider Nurse Practitioner Family; Visit Provider Internal Medicine Nephrology
DX: Q61.5 Medullary cystic kidney (principal); R82.90 Unspecified abnormal findings in urine; N39.0 Urinary tract infection, site not specified; R39.0 Extravasation of urine; R35.0 Frequency of micturition
CPT/HCPCS: 36415; 80051; 81001; 82310; 82565; 84520; 87086

== ENCOUNTER 2024-10-26 16:13 | Outpatient (AMB) | payer OTHER, SELFPAY ==
--- NOTE | 2024-10-26 16:16 | HO.NEPHOV_ITS ---
Vital Signs 10/26/24 16:17 Height 5 ft Weight 140 lb 6 oz BMI 27.4 BP 112/70 Blood Pressure Location Rt brachial Position Sitting Pulse 86 Pulse Source Pulse Oximeter Pulse Oximetry (%) 100 Oxygen Delivery Method Room Air Intake Visit Reasons: Medullary cystic kidney/ LVM Counter Intelligence Agent Required: No Accompanied by: Child Allergies metronidazole [From Flagyl] Allergy (Severe, Verified 10/26/24 16:17) Hives , problems breathing HPI Comments Details: I had the pleasure of seeing Kamron in follow up for medullary sponge kidney and nephrolithiasis. She has H/O flank pain as well as hydronephrosis, ESWL and stenting . She had been followed up by Urology. She has carbonate Apatite ( Dahllite) stones. She has strong family H/O medullary sponge kidney( Mom, mom's sister, first cousins). Mom has CKD from recurrent stone issues. She does not have any flank pain, hematuria or flank pain now. Her renal function is normal. She was started on HCTZ 12.5 mg at the last visit which she thinks is causing her intermittent nausea. She also has been having left flank pain. She also has renal calculi in the left kidney by the last USS. [facility] Medical History Gestational diabetes Asthma COVID-19 Renal mass, left Vitamin D deficiency Obesity (BMI 30.0-34.9) Depression with anxiety Surgical History History of tooth extraction Family History Father Cancer Seizures Mother Hypertension Kidney stones Paternal Grandmother Breast cancer Diabetes mellitus Paternal Grandfather Diabetes mellitus Maternal Aunt Hypertension Other Mental health disorder Social History Household Members: Children Both parents involved: No Housing: Apartment Do you presently have visiting nurse or other home services: No Alcohol intake: former Patient Tobacco Use Status: Never used Tobacco e-Cigarette/Vaping Use: Never Used Second Hand Smoke Exposure: No service: No Current occupational status: employed 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 Gender identity: Female Cognitive needs: No Hearing needs: No Vision needs: Yes (glasses) Female Reproductive History Menstrual Age of Menarche: 14 Review of Systems Const All systems reviewed & are unremarkable except as noted in HPI and below Physical Exam Vital Signs: Last Vital Signs Pulse 86 10/26/24 16:17 BP 112/70 10/26/24 16:17 Pulse Ox 100 10/26/24 16:17 Oxygen Delivery Method Room Air 10/26/24 16:17 BMI result Body Mass Index 27.4 Const General: comfortable and no acute distress Orientation/consciousness: patient oriented x3 HEENT Head: Yes normocephalic Mouth: Normal oral and palatal mucosa present Eyes EOM: EOMs intact bilaterally Neck Neck: Yes supple Resp Auscultation: clear to auscultation bilaterally Cardio Jugular venous distension: no JVD Rate: regular rate GI Palpation (GI): Soft to palpation Auscultation: normal bowel sounds General: Yes no CVA tenderness Back/Spine/Pelvis Back: no CVA tenderness Skin General skin exam: no rashes or lesions noted Neuro General: patient oriented x3 and moves all extremities Extrem General: Yes no pedal edema Results Reviewed Nephrology Results: Hgb 12.3 g/dl (12.0-16.0) 07/10/24 WBC 14.4 X10*3/uL (4.8-10.8) H 07/10/24 Plt Count 320 X10*3/uL (160-400) 07/10/24 Sodium 135 mmol/L (135-145) 10/22/24 Potassium 3.6 mmol/L (3.3-5.1) 10/22/24 Chloride 105 mmol/L (96-108) 10/22/24 Carbon Dioxide 25 mmol/L (22-29) 10/22/24 BUN 9 mg/dL (9-16) 10/22/24 Creatinine 0.60 mg/dL (0.5-1.4) 10/22/24 Calcium 8.9 mg/dL (8.4-10.2) 10/22/24 Urine Protein Negative mg/dL (Neg-Trace) 10/22/24 Renal US 07/20/24 Assessment & Plan Assessment & Plan (1) Left flank pain: Code(s): R10.9 - Unspecified abdominal pain Category: Medical (2) Nephrolithiasis: Code(s): N20.0 - Calculus of kidney Category: Medical Plan She has carbonate Apatite ( Dahllite) stones Low sodium diet; Increase citrate intake Adequate hydration; Low sodium in diet ( has strong family H/O medullary sponge kidney) Could hold HCTZ for a week and see her nausea goes away If not continue PO HCTZ 12.5 mg daily(aware of side effects) If tolerating, shall increase HCTZ to 25 mg daily May benefit from K citrate PO @ next visit; Urology following Ordered Urgent renal USS Shall do a 24 hour urine for screening later Answered all questions; F/U given Orders: Orders US renal BI 1 Week N20.0 - Calculus of kidney, R10.9 - Unspecified abdominal pain Coding Level of Care Code Est Pt Level 4 (68908) Diagnoses Left flank pain R10.9 Nephrolithiasis N20.0
[2024-10-26 16:17] VITALS: BP 112/70; PULSE 86; O2SAT 100; BMI 27.4
== END 2024-10-26 16:32 | disposition home or self-care (01) ==
PROVIDERS: PCP Specialist; Visit Provider Internal Medicine Nephrology
DX: R10.9 Unspecified abdominal pain (principal); N20.0 Calculus of kidney
CPT/HCPCS: 99214

== ENCOUNTER → 2024-10-26 16:13 | Outpatient (BNVA) | payer OTHER, SELFPAY | PROVIDERS: PCP Specialist; Visit Provider Internal Medicine Nephrology | DX: N20.0 Calculus of kidney (principal); R10.9 Unspecified abdominal pain | CPT/HCPCS: 99212 ==

== ENCOUNTER 2024-10-30 09:15 | Outpatient (REF) | payer OTHER, SELFPAY ==
--- NOTE | ~2024-10-30 | US_ITS ---
EXAMINATION: US RETROPERITONEAL LIMITED (RENAL ONLY) CLINICAL INFORMATION: Left-sided flank pain. Nephrolithiasis COMPARISON: Abdomen radiograph July 20, 2024. Renal ultrasound July 20, 2024 TECHNIQUE: Grayscale ultrasound color Doppler exam of kidneys. FINDINGS: RIGHT KIDNEY: 11.9 x 4.3 x 4.9 cm (SAG x AP x TRV). Redemonstration of echogenic medullary regions of kidney consistent with medullary sponge kidney. No definite stones seen. No hydronephrosis. There is similar cortical thinning to prior studies. LEFT KIDNEY: 11.1 x 4.8 x 5.4 cm (SAG x AP x TRV). Redemonstration of echogenic medullary regions of kidney consistent with medullary sponge kidney. There is a nonobstructive stone measuring 0.7 cm at the lower pole. (This was measured as 0.5 cm on ultrasound exam July 20, 2024). The previously seen renal cyst not evident on today's study. Redemonstration of diffuse cortical thinning similar prior study. No hydronephrosis. US/US renal BI IMPRESSION: 1. Redemonstration of bilateral medullary sponge kidneys. 2. Nonobstructive stone at the lower pole of the left kidney. 3. No hydronephrosis. Electronically signed by: Alexi Garcia MD 10/30/2024 03:35 PM JOSHUA
== END 2024-10-30 09:16 | disposition home or self-care (01) ==
LOC: HO.HMGCX 09:15
PROVIDERS: Visit Provider Internal Medicine Nephrology
DX: R10.9 Unspecified abdominal pain (principal); N20.0 Calculus of kidney
CPT/HCPCS: 76775

== ENCOUNTER 2025-02-26 09:38 | Outpatient (AMB) | payer OTHER, SELFPAY ==
[2025-02-26 09:42] VITALS: BP 100/60; BMI 26.9
--- NOTE | 2025-02-26 09:42 | A.OFFVIS_ITS ---
Vital Signs 02/26/25 09:42 Height 5 ft Weight 138 lb BMI 26.9 BP 100/60 Intake Visit Reasons: Frequent BV/BC removal consult Hand Router Operator Required: No Hand Router Operator Services: Hand Router Operator Present Information Interpreted: clinical only Marine Operations Coordinator: Marine Operations Coordinator Present Allergies metronidazole [From Flagyl] Allergy (Severe, Verified 02/26/25 09:42) Hives , problems breathing Medication List - Last Reconciled 02/26/25 by Dahlia Anaya CNM copper (ParaGard T 380A) intrauterine escitalopram oxalate 10 mg PO DAILY tamsulosin 0.4 mg PO BEDTIME PRN Is last menstrual period known: Yes Last menstrual period: 01/29/25 HPI HPI Frequent BV/BC removal consult: Details: Get checked for BV which she feels she has been getting a lot of recently and also to talk about getting her IUD removed she is planning on being better with condom use. Which would help with the BV as well and she does know this. Also her periods have become more painful since she has had the IUD in there. She says she was exhibiting some symptoms of PCOS in the past but she did lose a lot of weight after her and so her periods are regular now. And she does not seem to have any of those symptoms anymore that she did have in the past. She says the ectopic turned out to be more of a miscarriage. She is not planning a any time soon. She is not interested in any control pills or hormones. [facility] Medical History Calculus of left ureter Gestational diabetes Asthma COVID-19 Renal mass, left Vitamin D deficiency Obesity (BMI 30.0-34.9) Depression with anxiety Surgical History History of tooth extraction Family History Father Cancer Seizures Mother Hypertension Kidney stones Paternal Grandmother Breast cancer Diabetes mellitus Paternal Grandfather Diabetes mellitus Maternal Aunt Hypertension Other Mental health disorder Social History Household Members: Children Both parents involved: No Housing: Apartment Do you presently have visiting nurse or other home services: No Alcohol intake: former Patient Tobacco Use Status: Never used Tobacco e-Cigarette/Vaping Use: Never Used Second Hand Smoke Exposure: No service: No Current occupational status: employed 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 External Female Exam: normal external appearance and normal appearance of the urethra Speculum Exam - Vagina: normal appearance of the vagina and normal vaginal discharge Speculum Exam - Cervix: normal appearance of the cervix and Cervical os closed Assessment & Plan Assessment & Plan (1) IUD check up: Code(s): Z30.431 - Encounter for routine checking of intrauterine contraceptive device Category: Medical (2) Family planning: Code(s): Z30.09 - Encounter for other general counseling and advice on contraception Category: Social Hx (3) Hx of gestational diabetes mellitus, not currently : Code(s): Z86.32 - Personal history of gestational diabetes Category: Medical (4) History of severe pre-eclampsia: Code(s): Z87.59 - Personal history of other complications of , childbirth and the puerperium Category: Medical (5) PCOS (polycystic ovarian syndrome): Comment: Symptoms have resolved and periods are regular since weight loss... Code(s): E28.2 - Polycystic ovarian syndrome Category: Medical (6) Nephrolithiasis: Comment: Ease followed by nephrologists she is drinking a lot more water and having fewer issues.... Code(s): N20.0 - Calculus of kidney Category: Medical (7) Recurrent UTI (urinary tract infection): Comment: Patient sees urologists, recommend that she contact them for any urinary tract questions and concerns Code(s): N39.0 - Urinary tract infection, site not specified Category: Medical Plan Discussed all of her concerns that may testing done today for BV which I discussed in detail with her recommend condom use for the best way to prevent alteration in her celio. She did find some benefit from taking probiotics. Di scussed that just because the bacteria is present does not she has BV. Her discharge today could be consistent with luteal phase though it is possible that there maybe also some bacterial vaginosis is present. If it is present we will offer treatment. Discussed her concerns about the IUD it definitely could contribute to heavier cramp ear periods so if she wishes to remove it that is a possibility and she may do it at her next annual exam. I urged her 1st to make a Pap with herself to plan and follow-up on using condoms with every event of intercourse so she knows she can rely on her new have it to protect herself from an unintended discussed plan B if a condom breaks. Discussed that if she has unprotected sex right before a planned visit to remove it I would recommend keeping it in for the remainder of the menstrual cycle. Discussed that since she has a urologist and a kidney doctor for her kidney issues she should follow-up with them for any urinary tract issues. She has an appointment coming up for an annual exam the IUD then if she is still wants it removed. I did discuss other hormonal methods and how they contribute to loan secretary less crampy periods as well and also that her weight loss is what is helping her with her improved health in general and decreased PCOS symptoms and regular menses. Coding Level of Care Code Est Pt Level 3 (68903) Diagnoses IUD check up Z30.431 Family planning Z30.09 Hx of gestational diabetes mellitus, not currently Z86.32 History of severe pre-eclampsia Z87.59 PCOS (polycystic ovarian syndrome) E28.2 Nephrolithiasis N20.0 Recurrent UTI (urinary tract infection) N39.0
--- OUTSIDE RECORDS SUMMARY | 2025-02-26 10:52 | XMS_ITS | Encounter Summary ---
Author Organization [facility] Address [address] [place] [address] Phone Care Team Providers Care Knot Tier Name Role Phone Carito Olivo MD Primary Care Provider Encounter Details Date Type Department Care Team (Late st Contact Info) Description 02/12/2013 Documentation [facility] [place] Family Medicine [address] [place] [address] Family Medicine, Physician [address] [place], [place] [phone] Social History Tobacco Use Types Packs/Day Years Used Date Smoking Tobacco: Never Assessed Comments Unknown Sex and Gender Information Value Date Recorded Sex Assigned at Not on file Legal Sex Female 5:19 PM EDT Gender Identity Not on file Sexual Orientation Not on file documented as of this encounter Plan of Treatment Not on file documented as of this encounter Visit Diagnoses Not on filedocumented in this encounter Care Teams Knot Tier Relationship Specialty Start Date End Date Carito Olivo MD [address] [place] [address] [place] [address] PCP - General 06/24/17 03/01/23 documented as of this encounter
--- OUTSIDE RECORDS SUMMARY | 2025-02-26 10:52 | XMS_ITS | Clinical Summary ---
Author Organization [facility] Address [address] [place] [address] Phone Care Team Providers Care Wind Energy Mechanic Name Role Phone Unavailable Primary Care Provider Unavailabl e Immunizations Immunization Administration Dates Next Due DTP 03/18/1997, 6,02/13/1996,11/14 DTaP 5 03/07/2000 H1N1 12/16/2009 HPV, Quadrivalent 01/20/2011,12/16/2009,06/26/20 08 Hep A, Adult 05/27/2015 Hep A, ped/adol 09/04/2014 Hep B, ped/adol 04/25/1996,1995 Hib (PRP-T) 12/19/1996, 6,02/13/1996,11/14 IPV 03/07/2000 Influenza Split 01/20/2011 Influenza, injectable, quadrivalent 08/09/2016,1 Influenza, injectable, quadr ivalent, preservative free 08/09/2016,09/04/2014 Influenza, injectable, trivalent 12/16/2009 MMR 03/07/2000,12/19/1996 Meningococcal Conj (Menactra) MCV4P 09/09/2015,0 02/08/2007 OPV 04/14/1996,02/13/1996,1995 Td (adult) (Tenivac), 5 Lf t etanus toxoid, PF, adsorbed 09/17/2016 Tdap 10/21/2005 Varicella 06/26/2008,03/12/1998 Family History Relation Name Status Comments Father Father: Seizure disorder, Half-Sister Alive Half sister (M) : Alive and well Maternal Grandmother Materna l grandmother: Migraines Mother Alive Mother: Alive a nd well Social History Tobacco Use Types Packs/Day Years Used Date Smoking Tobacco: Never Comments:Never smoker Comments Unknown Sex and Gender Information Value Date Recorded Sex Assigned at Not on file Legal Sex Female 5:19 PM EDT Gender Identity Not on file Sexual Orientation Not on file Last Filed Vital Signs Vital Sign Reading Time Taken Comments Blood Pressure 104/66 03/07/2017 12:00 AM EDT Pulse 95 03/07/2017 12:00 AM EDT Temperature 35.8 ??C (96.5 ??F) 12/07/2016 12:[address] Respiratory Rate - - Oxygen Saturation - - Inhaled Oxygen Concentration - - Weight 55.3 kg (122 lb) 03/07/2017 12:00 AM EDT Height 154.9 cm (5' 1 ) 12/07/2016 12:00 AM EST Body Mass Index 23.05 12/07/2016 12:00 AM EST Plan of Treatment Health Maintenance Due Date Last Done Comments Hepatitis B Vaccines (3 of 3 - 3-dose series) 06/20/1996 04/25/1996, 1995 Influenza Vaccines (#1) 2024 08/09/20 16, 08/09/2016, 09/09/2015, Additional history exists COVID-19 Vaccine (2023- season) 2024 DTaP,Tdap,and Td Vaccines (8 - Td or Tdap) 09/17/2026 09/17/2016, 10/21/2005, 03/07/2000, Additional history exists HIB Vaccines Completed 12/19/1996, 11/1995, 02/13/1996, Additional history exists IPV Vaccines Completed 03/07/2000, 11/1995, 02/13/1996, Additional history exists MMR Vaccines Completed 03/07/2000, 12/19/1996 Varicella Vaccines Completed 06/26/2008, 03/12/1998 HPV Vaccines Completed 01/20/2011, 12/2009, 06/26/2008 Hepatitis A Vaccines Completed 05/27/2015, 09/04/20 14 Meningococcal Vaccine Aged Out 09/09/2015, 007 No longer eligible based on patient's age to complete this topic Men B Vaccine Aged Out No longer elig ible based on patient's age to complete this topic Pneumococcal Vaccine Aged Out No long er eligible based on patient's age to complete this topic Procedures * Due to [place] state law, this organization might not be sharing sensitive test results. Procedure Name Priority Date/Time Associated Diagnosis Comments CHLAMYDIA AND GONORRHEA, AMPLIFIED Routine 12/08/2016 1:12 PM EST from Last 3 Months or Most Recently Relevant to Health Maintenance Results * Due to [place] [employer] law, this organization might not be sharing sensitive test results. * Chlamydia and Gonorrhoea, Amplified (12/08/2016 1:12 PM EST) URINE GC AMP PROBE NEGATIVE [facility] Comment: No Neisseria Gonorrhoeae RNA detected in this patient's sample (REFERENCE RANGE/NORMAL VALUE: NOT DETECTED) NOTE: This test uses hog tender-mediated amplification method to detect rRNA from C.Trachomatis and N.Gonorrhoeae. A negative result does not preclude infection. In the case of a negative urine result, testing of an endocervical(female) or urethral(male) specimen is recommended if there is high clinical suspicion of infection. The performance characteristics of this test have not been evaluated in children. The Aptima Combo2 assay is not intended for the evaluation of suspected sexual abuse or for other medico-legal indications. The ordering provider should assess if the patient had consensual sex without risk of sexual abuse. Consult the [facility] if needed. Contact phone number . Therapeutic failure or success cannot be determined with the Aptima Combo2 assay since nucleic acid may persist following appropriate antimicrobial therapy. The Centers for Disease Control and Prevention (CDC) recommends confirmatory retesting using culture or a different nucleic acid amplification test when positive results occur, if indicated. Testing performed or reported by [facility], a Service of [facility], [address] [place] [address] CLIA ??[id number] Navneet Martin MD, PhD, Tool Storage Attendant URINE CHLAMYDIA AMP PROBE NEGATIVE [facility] Comment: No Chlamydia Trachomatis RNA detected in this patient's sample (REFERENCE RANGE/NORMAL VALUE: NOT DETECTED) 12/08/2016 1:12 PM EST Narrative [facility] - 12/08/2016 1:12 PM EST URINE CHLAMYDIA GC AMP PROBE Carito Olivo MD LAB MICROBIOLOGY - GENERAL ORDERABLES Final Result [facility] [address] [place] [address], [place] from Last 3 Months or Most Recently Relevant to Health Maintenance
--- OUTSIDE RECORDS SUMMARY | 2025-02-26 10:52 | XMS_ITS | Encounter Summary ---
Author Organization [facility] Address [address] [place] [address] Phone Care Team Providers Care Cytotechnologist Name Role Phone Carito Olivo MD Primary Care Provider Encounter Details Date Type Department Care Team (Late st Contact Info) Description 01/27/2017 Documentation [facility] [place] [address] [place] [address] Family Medicine, Physician [address] [place], [place] [phone] Social History Tobacco Use Types Packs/Day Years [...] on filedocumented in this encounter Care Teams Cytotechnologist Relationship Specialty Start Date End Date Carito Olivo MD [address] [place] [address] [place] [address] PCP - General 06/24/17 03/01/23 documented as of this encounter
--- OUTSIDE RECORDS SUMMARY | 2025-02-26 10:52 | XMS_ITS | Encounter Summary ---
Author Organization [facility] Address [address] [place] [address] Phone Care Team Providers Care Cabin Cleaner Name Role Phone Carito Olivo MD Primary Care Provider Encounter Details Date Type Department Care Team (Late st Contact Info) Description 04/12/2013 Documentation [facility] [place] Family Medicine [address] [place] [address] Family Medicine, Physician [address] [place], [place] [phone] Social History Tobacco Use Types Packs/Day Years [...] on filedocumented in this encounter Care Teams Cabin Cleaner Relationship Specialty Start Date End Date Carito Olivo MD [address] [place] [address] [place] [address] PCP - General 06/24/17 03/01/23 documented as of this encounter
--- OUTSIDE RECORDS SUMMARY | 2025-02-26 10:52 | XMS_ITS | Encounter Summary ---
Author Organization [facility] Address [address] [place] [address] Phone Care Team Providers Care Electronics Installer Name Role Phone Carito Olivo MD Primary Care Provider [phone] Encounter Details Date Type Department Care Team (Late st Contact Info) Description 04/10/2013 Documentation [facility] [place] [address] [place] [address] Family Medicine, Physician [address] [place], [place] [phone] Social History Tobacco Use Types Packs/Day Years [...] on filedocumented in this encounter Care Teams Electronics Installer Relationship Specialty Start Date End Date Carito Olivo MD [address] [place] [address] [place] [address] PCP - General 06/24/17 03/01/23 documented as of this encounter
--- OUTSIDE RECORDS SUMMARY | 2025-02-26 10:52 | XMS_ITS | Encounter Summary ---
Author Organization [facility] Address [address] [place] [address] Phone Care Team Providers Care Vest Busheler Name Role Phone Carito Olivo MD Primary Care Provider Encounter Details Date Type Department Care Team (Late st Contact Info) Description 03/01/2012 Documentation [facility] [place] Family Medicine [address] [place] [address] Family Medicine, Physician [address] [place], [place] [phone] Social History Tobacco Use Types Packs/Day Years [...] on filedocumented in this encounter Care Teams Vest Busheler Relationship Specialty Start Date End Date Carito Olivo MD [address] [place] [address] [place] [address] PCP - General 06/24/17 03/01/23 documented as of this encounter
== END 2025-02-26 11:24 | disposition home or self-care (01) ==
LOC: HO.HWSM 09:38
PROVIDERS: PCP Specialist; Visit Provider Advanced Practice Midwife
DX: Z30.431 Encounter for routine checking of intrauterine contraceptive device (principal); Z30.09 Encounter for other general counseling and advice on contraception; Z86.32 Personal history of gestational diabetes; Z87.59 Personal history of other complications of pregnancy, childbirth and the puerperium; E28.2 Polycystic ovarian syndrome; N20.0 Calculus of kidney; N39.0 Urinary tract infection, site not specified
CPT/HCPCS: 99213

== ENCOUNTER 2025-02-26 09:38 | Outpatient (REF) | payer OTHER, SELFPAY ==
--- OUTSIDE RECORDS SUMMARY | 2025-02-26 14:11 | XMS_ITS | Encounter Summary ---
Author Organization [facility] Address [address] [place] [address] Phone Care Team Providers Care Cold Saw Operator Name Role Phone Carito Olivo MD Primary Care Provider Encounter Details Date Type Department Care Team (Late st Contact Info) Description 03/01/2012 Documentation [facility] [place] [address] [place] [address] Family Medicine, Physician [address] [place], [place] [phone] Social History Tobacco Use Types Packs/Day Years [...] on filedocumented in this encounter Care Teams Cold Saw Operator Relationship Specialty Start Date End Date Carito Olivo MD [address] [place] [address] [place] [address] PCP - General 06/24/17 03/01/23 documented as of this encounter
--- OUTSIDE RECORDS SUMMARY | 2025-02-26 14:11 | XMS_ITS | Encounter Summary ---
Author Organization [facility] Address [address] [place] [address] Phone Care Team Providers Care Digital Design Engineer Name Role Phone Carito Olivo MD Primary Care Provider Encounter Details Date Type Department Care Team (Late st Contact Info) Description 02/12/2013 [place] [facility] [place] [address] [place] [address] Family Medicine, Physician [address] [place], [place] [phone] Social History Tobacco Use Types Packs/Day Years [...] on filedocumented in this encounter Care Teams Digital Design Engineer Relationship Specialty Start Date End Date Carito Olivo MD [address] [place] [address] [place] [address] PCP - General 06/24/17 03/01/23 documented as of this encounter
--- OUTSIDE RECORDS SUMMARY | 2025-02-26 14:11 | XMS_ITS | Encounter Summary ---
Author Organization [facility] Address [address] [place] [address] Phone Care Team Providers Care Upholsterer Limousine And Hearse Name Role Phone Carito Olivo MD Primary Care Provider Encounter Details Date Type Department Care Team (Late st Contact Info) Description 04/10/2013 Documentation [facility] [place] [address] [place] [address] Family Medicine, Physician [address] [place], [place] [phone] Social History Tobacco Use Types Packs/Day Years [...] on filedocumented in this encounter Care Teams Upholsterer Limousine And Hearse Relationship Specialty Start Date End Date Carito Olivo MD [address] [place] [address] [place] [address] PCP - General 06/24/17 03/01/23 documented as of this encounter
--- OUTSIDE RECORDS SUMMARY | 2025-02-26 14:11 | XMS_ITS | Clinical Summary ---
Author Organization [facility] Address [address] [place] [address] Phone Care Team Providers Care Biodiesel Product Development Manager Name Role Phone Unavailable Primary Care Provider [...] complete this topic Procedures * Due to [place] state law, this organization might not be sharing sensitive test results. Procedure Name Priority Date/Time Associated Diagnosis Comments CHLAMYDIA AND GONORRHEA, AMPLIFIED Routine 12/08/2016 1:12 PM EST from Last 3 Months or Most Recently Relevant to Health Maintenance Results * Due to [place] [employer] law, this organization might not be sharing sensitive test results. * Chlamydia and Gonorrhoea, Amplified (12/08/2016 1:12 PM EST) URINE GC AMP PROBE NEGATIVE [facility] Comment: No Neisseria Gonorrhoeae RNA detected in this patient's sample (REFERENCE RANGE/NORMAL VALUE: NOT DETECTED) NOTE: This test uses sand caster apprentice-mediated amplification method to detect rRNA from C.Trachomatis [...] without risk of sexual abuse. Consult the [facility] if needed. Contact phone number . Therapeutic failure or success cannot be determined with the Aptima Combo2 assay since nucleic acid may persist following appropriate antimicrobial therapy. The Centers for Disease Control and Prevention (CDC) recommends confirmatory retesting using culture or a different nucleic acid amplification test when positive results occur, if indicated. Testing performed or reported by [facility], a Service of [facility], [address] [place] [address] CLIA ??[id number] Navneet Martin MD, PhD, Neon Sign Maker URINE CHLAMYDIA AMP PROBE NEGATIVE [facility] Comment: No Chlamydia Trachomatis RNA detected in this patient's sample (REFERENCE RANGE/NORMAL VALUE: NOT DETECTED) 12/08/2016 1:12 PM EST Narrative [facility] - 12/08/2016 1:12 PM EST URINE CHLAMYDIA GC AMP PROBE Carito Olivo MD LAB MICROBIOLOGY - GENERAL ORDERABLES Final Result [facility] [address] [place] [address], [place] from Last 3 Months or Most Recently Relevant to Health Maintenance
--- OUTSIDE RECORDS SUMMARY | 2025-02-26 14:11 | XMS_ITS | Encounter Summary ---
Author Organization [facility] Address [address] [place] [address] Phone Care Team Providers Care Ply Cutter Name Role Phone Carito Olivo MD Primary Care Provider Encounter Details Date Type Department Care Team (Late st Contact Info) Description 04/12/2013 Documentation [facility] [place] [address] [place] [address] Family Medicine, Physician [address] [place], [place] [phone] Social History Tobacco Use Types Packs/Day Years [...] on filedocumented in this encounter Care Teams Ply Cutter Relationship Specialty Start Date End Date Carito Olivo MD [address] [place] [address] [place] [address] PCP - General 06/24/17 03/01/23 documented as of this encounter
--- OUTSIDE RECORDS SUMMARY | 2025-02-26 14:11 | XMS_ITS | Encounter Summary ---
Author Organization [facility] Address [address] [place] [address] Phone Care Team Providers Care Flight Line Service Attendant Name Role Phone Carito Olivo MD Primary Care Provider Encounter Details Date Type Department Care Team (Late st Contact Info) Description 01/27/2017 Documentation [facility] [place] [address] [place] [address] Family Medicine, Physician [address] [place], [place] [phone] Social History Tobacco Use Types Packs/Day Years [...] on filedocumented in this encounter Care Teams Flight Line Service Attendant Relationship Specialty Start Date End Date Carito Olivo MD [address] [place] [address] [place] [address] PCP - General 06/24/17 03/01/23 documented as of this encounter
[2025-02-27 03:26] LABS: CT PCR NOT DETECTED (Not Detect.); NG PCR NOT DETECTED (Not Detect.)
[2025-02-27 10:16] LABS: Bacterial Vaginosis PCR NEGATIVE (Negative); Candida Group PCR NOT DETECTED (Not Detect); Candida glab krusei PCR NOT DETECTED (Not Detect); Trichomonas vaginalis PCR NOT DETECTED (Not Detect)
== END 2025-02-26 09:39 | disposition home or self-care (01) ==
LOC: HO.LAB 09:38
PROVIDERS: PCP Specialist; Visit Provider Advanced Practice Midwife
DX: Z30.431 Encounter for routine checking of intrauterine contraceptive device (principal); N89.8 Other specified noninflammatory disorders of vagina; Z20.2 Contact with and (suspected) exposure to infections with a predominantly sexual mode of transmission; Z86.32 Personal history of gestational diabetes; E28.2 Polycystic ovarian syndrome; N20.0 Calculus of kidney; N39.0 Urinary tract infection, site not specified
CPT/HCPCS: 81515; 87491; 87591; 99212

== ENCOUNTER 2025-07-30 15:51 | Outpatient (AMB) | payer OTHER, SELFPAY ==
[2025-07-30 09:03] VITALS: BP 116/70; PULSE 89; TEMP 36.2; O2SAT 99; BMI 27.5
--- NOTE | 2025-07-30 09:03 | MHC.PC.OV ---
Vital Signs 07/30/25 09:03 Height 5 ft Weight 141 lb BMI 27.5 BP 116/70 Blood Pressure Location Rt brachial Position Sitting Pulse 89 Pulse Source Pulse Oximeter Temp 97.1 F Temp Source Temporal Artery Scan Pulse Oximetry (%) 99 Oxygen Delivery Method Room Air Intake Visit Reasons: New Patient - see comments Door Liner Helper Required: No Accompanied by: Self / Same As Patient Allergies metronidazole (From Flagyl) Allergy (Severe, Verified 07/30/25 16:12) Hives , problems breathing Medication List - Last Reconciled 07/30/25 by FRANSISCO Pike albuterol sulfate 90 mcg/actuation (Ventolin HFA) 2 puffs inhalation Q4-6H PRN baclofen 20 mg PO BID Tobacco use date assessed: 03/15/23 Dental Screening Dental Screen Date: 07/30/25 Did you have a dental visit in the last 12 months?: Yes Did you have a dental problem in the last 6 months where you did not have access to dental care?: No HPI HPI Comments History of Present Illness Details The patient is a 29-year-old female with history of asthma, MDD/Anxiety, history of kidney stones, medullary sponge kidney bilateral, and low vitamin D presenting to [facility] care. She was last seen by primary care in 2022. The patient has a history of asthma, which has been asymptomatic for a long period. She possesses an inhaler, although it is currently , indicating a need for renewal. The patient was previously on escitalopram for depression and anxiety but has discontinued it over the past few months to attempt managing without medication. She remains in contact with her psychologist for support and potential future medication needs. The patient was diagnosed with kidney disease approximately one to two years ago, which required multiple hospitalizations and lithotripsy procedures due to large kidney stones. She has since modified her diet by reducing animal protein intake, which has resulted in smaller, less painful stones. She was followed by Nephrology for Medullary sponge kidney and was last seen in 10/2024. The patient reports experiencing significant back pain for the past month, which she attributes to carrying groceries. She visited urgent care two weeks ago and received lidocaine treatment. There is a palpable muscle knot in the affected area. The patient has not had recent lab work to assess kidney function and is due for follow-up appointments with both a kidney specialist and a urologist. She also requires an eye exam due to worsening vision and infrequent use of corrective lenses. Patient was informed and verbally consented to the use of an ambient scribe for clinic note documentation during this visit. PENDING SALE TO [facility] Medical History (Updated 08/04/25 @ 23:45 by FRANSISCO Pike) Asthma Back pain Calculus of left ureter COVID-19 Decreased visual acuity Depression with anxiety Dizziness Gestational diabetes Health care maintenance Lipid screening Low vitamin D level Obesity (BMI 30.0-34.9) Renal mass, left Vitamin D deficiency Surgical History History of tooth extraction Family History Father Cancer Seizures Mother Hypertension Kidney stones Paternal Grandmother Breast cancer Diabetes mellitus Paternal Grandfather Diabetes mellitus Maternal Aunt Hypertension Other Mental health disorder Social History Household Members: Children Both parents involved: No Housing: Apartment Do you presently have visiting nurse or other home services: No Alcohol intake: former Patient Tobacco Use Status: Never used Tobacco e-Cigarette/Vaping Use: Never Used Second Hand Smoke Exposure: No service: No Current occupational status: employed 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 1. Little interest or pleasure in doing things: not at all 2. Feeling down, depressed, or hopeless: nearly every day (depression and anxiety) 3. Trouble falling or staying asleep, or sleeping too much: nearly every day 4. Feeling tired or having little energy: nearly every day 5. Poor appetite or overeating: nearly every day (poor appetite) 6. Feeling bad about yourself - or that you are a failure or have let yourself or your family down: not at all 7. Trouble concentrating on things, such as reading the newspaper or watching television: not at all 8. Moving or speaking so slowly that other people could have noticed. Or the opposite - being so fidgety or restless that you have been moving around a lot more than usual: not at all 9. Thoughts that you would be better off or of hurting yourself in some way: not at all Total score: 12 Depression Screening Interpretation: Positive Depression Screening Follow-up: Existing condition Depression Screening Done: Yes Source: Developed by Drs. Kiran Bingham, Mary Vang, Jake Melgar and colleagues, with an educational prasad from [employer]. Thrive Questionnaire Date Thrive assessed: 07/30/25 I am a: Patient Within the past 12 months, did the food you bought not last and you didn't have the money to get more?: Never true Within the past 12 months, did you worry whether your food would run out before you got money to buy more?: Never true Do you have trouble paying for medicines?: No Do you have trouble getting transportation to medical appointments?: No Do you have trouble paying your heating and electricity bill?: No Do you have trouble taking care of your child, family member or friend?: No Do you have trouble with day-to-day activities such as bathing, preparing meals, shopping, managing finances, etc.?: No Are you currently unemployed and looking for a job?: No Are you interested in more education?: No THRIVE Score: 0 AUDIT C Alcohol Use Questionnaire (AUDIT-C) 1. How often do you have a drink containing alcohol?: Monthly or less 2. How many drinks containing alcohol do you have on a typical day when you are drinking?: 1 or 2 3. How often do you have six or more drinks on one occasion?: Less than monthly Total Score: 2 VINAY-7 AMB Questionnaire VINAY-7 Date VINAY - 7 assessed: 07/30/25 Feeling nervous, anxious, or on edge: 3 = Nearly every day Not being able to stop or control worryin = Nearly every day Worrying too much about different things: 3 = Nearly every day Trouble relaxin = Nearly every day Being so restless that it is hard to sit still: 0 = Not at all Becoming easily annoyed or irritable: 0 = Not at all Feeling afraid as if something awful might happen: 0 = Not at all Total VINAY-7 score (0-4 normal; 5-9 mild; 10-14 moderate; 15-21 severe): 12 Source: Developed by Mary BirchW. Taj, Jake Melgar and colleagues, with an educational prasad from [employer]. Review of Systems Const Details: CONSTITUTIONAL Negative HEAD/NECK Reports worsening vision, infrequent use of corrective lenses EAR/NOSE/MOUTH/THROAT Negative RESPIRATORY Denies dyspnea, cough, or wheezing CARDIOVASCULAR Negative GASTROINTESTINAL Denies constipation, diarrhea, or heartburn MUSCULOSKELETAL Reports significant back pain for the past month NEUROLOGICAL Denies headaches or dizziness PSYCHIATRIC Negative Physical exam (Primary Care) Vital Signs: Last Vital Signs Temp 97.1 F 07/30/25 09:03 Pulse 89 07/30/25 09:03 BP 116/70 07/30/25 09:03 Pulse Ox 99 07/30/25 09:03 Oxygen Delivery Method Room Air 07/30/25 09:03 BMI result Body Mass Index 27.5 GENERAL Well developed, Well nourished, in no apparent distress HEENT Head-Normocephalic Eyes- PERRLA, EOMI, Conjuctiva clear, lids WNL Ears- Canals clear, TMs WNL Mouth/Throat-No lesions, no erythema, no exudate Neck- Supple, No lymphadenopathy, thyroid WNL RESPIRATORY Normal I:E, Clear to auscultation CARDIOVASCULAR Regular, rate and rhythm, No murmurs or rubs GASTROINTESTINAL Soft, nontender, normal bowel sounds, no masses MUSCULOSKELETAL Back-Decreased ROM, Tender in Thoracic with muscle tightness, Tender with motion, Straight leg raise negative, DTR 2+ symmetrical, Gait normal Joints- no pain swelling or deformity NEUROLOGICAL Gait normal PSYCHIATRIC Oriented to person, place and time Mood and affect WNL Appearance WNL Speech WNL Thought processes WNL Tobacco/Smoking Status: Tobacco use Status Tobacco use date assessed 03/15/23 07/30/25 09:03 Patient Tobacco Use Status Never used Tobacco 07/30/25 09:03 e-Cigarette/Vaping Use Never Used 07/30/25 09:03 PHQ-9: PHQ-9 Score PHQ-9: Total score 12 07/30/25 16:15 Depression Screening Interpretation: Positive Depression Screening Follow-up: Existing condition Thrive Assessment: Date of Thrive Assessment Date Thrive assessed 07/30/25 07/30/25 16:15 Coding Level of Care Code Established Pt Est Pt Level 4 (34383) Patient Type Established Diagnoses Depression with anxiety F41.8 Mild intermittent asthma without complication J45.20 Asthma severity: mild Asthma complication type: uncomplicated Medullary sponge kidney of both kidneys Q61.5 Nephrolithiasis N20.0 Decreased visual acuity H54.7 Back pain M54.9 Time Spent (min) 30 Comment Time spent on chart review, H&P and patient education orders, medication reconciliation. Assessment & Plan Assessment & Plan (1) Depression with anxiety: Code(s): F41.8 - Other specified anxiety disorders Category: Medical Plan: The patient discontinued escitalopram for depression and is attempting to manage without medication. She remains in contact with her psychologist for support and potential future medication needs. (2) Asthma, intermittent: Code(s): J45.20 - Mild intermittent asthma, uncomplicated Category: Medical Qualifiers: Asthma severity: mild Asthma complication type: uncomplicated Qualified Code(s): J45.20 - Mild intermittent asthma, uncomplicated Plan: The patient has a history of asthma, which has been asymptomatic for a long period. A new inhaler prescription is needed as the current one is . (3) Medullary sponge kidney of both kidneys: Code(s): Q61.5 - Medullary cystic kidney Category: Medical Plan: The patient was diagnosed with medullary sponge kidney disease approximately one to two years ago, requiring multiple hospitalizations and lithotripsy procedures. Dietary modifications have been made to reduce stone formation. Follow-up with a kidney specialist and urologist is necessary. (4) Nephrolithiasis: Comment: Ease followed by nephrologists she is drinking a lot more water and having fewer issues.... Code(s): N20.0 - Calculus of kidney Category: Medical Plan: The patient was diagnosed with medullary sponge kidney disease approximately one to two years ago, requiring multiple hospitalizations and lithotripsy procedures. Dietary modifications have been made to reduce stone formation. Follow-up with a kidney specialist and urologist is necessary. (5) Decreased visual acuity: Code(s): H54.7 - Unspecified visual loss Category: Medical Plan: Will return to Optometry (6) Back pain: Code(s): M54.9 - Dorsalgia, unspecified Category: Medical Plan: The patient reports significant back pain for the past month, likely due to muscle strain from carrying groceries. Treatment includes muscle relaxants, and if symptoms persist, physical therapy may be considered. Patient to follow up as needed if symptoms persist or worsen. Plan During the visit, we discussed the need for a new inhaler for asthma management and the patient's decision to manage depression and anxiety without medication, with ongoing support from her psychologist. We reviewed the importance of dietary modifications for kidney disease management and the need for follow-up with specialists. For back pain, we discussed using muscle relaxants and considering physical therapy if symptoms persist. Referrals for an eye exam and specialist follow-ups were arranged. Orders: Orders Comprehensive Met. Panel 07/30/25 F41.8 - Other specified anxiety disorders, Q61.5 - Medullary cystic kidney, Z00.00 - Encounter for general adult medical examination without abnormal findings Complete Blood Count no Diff 07/30/25 F41.8 - Other specified anxiety disorders, Q61.5 - Medullary cystic kidney, Z00.00 - Encounter for general adult medical examination without abnormal findings Lipid Panel 07/30/25 Z00.00 - Encounter for general adult medical examination without abnormal findings, Z13.220 - Encounter for screening for lipoid disorders TSH reflex Free T4 07/30/25 F41.8 - Other specified anxiety disorders, Z00.00 - Encounter for general adult medical examination without abnormal findings Vitamin D 25-OH Total 07/30/25 R79.89 - Other specified abnormal findings of blood chemistry Referrals Urology Referral N20.0 - Calculus of kidney Optometry Referral H54.7 - Unspecified visual loss Nephrology Referral Q61.5 - Medullary cystic kidney Medications: New albuterol sulfate 90 mcg/actuation (Ventolin HFA) 2 puffs inhalation Q4-6H PRN 8.5 grams 2RF shortness of breath or wheezing baclofen 20 mg PO BID 14 tabs 0RF for muscle pain Patient Instructions: - Obtain a new inhaler for asthma management. - Continue dietary modifications to manage kidney disease. - Use prescribed muscle relaxants for back pain and consider physical therapy if pain persists. - Schedule and attend follow-up appointments with kidney specialist and urologist. - Schedule an eye exam to address worsening vision.
== END 2025-07-30 16:40 | disposition home or self-care (01) ==
LOC: HO.HMCHD 15:53
PROVIDERS: PCP Specialist; Visit Provider Physician Assistant Medical
DX: N20.0 Calculus of kidney (principal); F41.8 Other specified anxiety disorders; J45.20 Mild intermittent asthma, uncomplicated; Q61.5 Medullary cystic kidney; H54.7 Unspecified visual loss; M54.9 Dorsalgia, unspecified

== ENCOUNTER → 2025-07-30 15:51 | Outpatient (BNVA) | payer OTHER, SELFPAY | PROVIDERS: PCP Specialist; Visit Provider Physician Assistant Medical | DX: F41.8 Other specified anxiety disorders (principal); J45.909 Unspecified asthma, uncomplicated; M54.9 Dorsalgia, unspecified; Q61.5 Medullary cystic kidney; J45.20 Mild intermittent asthma, uncomplicated; N20.0 Calculus of kidney; H54.7 Unspecified visual loss; Z87.442 Personal history of urinary calculi | CPT/HCPCS: 99212 ==

== ENCOUNTER 2025-09-17 09:23 | Outpatient (AMB) | payer OTHER, SELFPAY ==
[2025-09-17 09:33] VITALS: BP 114/68; BMI 27.3
--- NOTE | 2025-09-17 09:33 | A.OFFVIS_ITS ---
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 Complaining of heavy menstrual cycles associated with passage of blood clots and pelvic cramping Last Pap was negative in 11/03 [facility] Medical History Back pain Low vitamin D level Decreased visual acuity Lipid screening Health care maintenance Dizziness Calculus of left ureter Gestational diabetes Asthma COVID-19 Renal mass, left Vitamin D deficiency Obesity (BMI 30.0-34.9) Depression with anxiety Surgical History History of tooth extraction Family History Father Cancer Seizures Mother Hypertension Kidney stones Paternal Grandmother Breast cancer Diabetes mellitus Paternal Grandfather Diabetes mellitus Maternal Aunt Hypertension Other Mental health disorder Social History Household Members: Children Both parents involved: No Housing: Apartment Do you presently have visiting nurse or other home services: No Alcohol intake: former Patient Tobacco Use Status: Never used Tobacco e-Cigarette/Vaping Use: Never Used Second Hand Smoke Exposure: No service: No Current occupational status: employed 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 Gender identity: Female Cognitive needs: No Hearing needs: No Vision needs: Yes (glasses) Female Reproductive History Menstrual Age of Menarche: 14 Date of last menstrual period: 08/30/25 control method: copper IUCD Date of last pap smear: 10/19/21 Review of Systems Const All systems reviewed & are unremarkable except as noted in HPI and below Card Reports as per HPI Resp Reports as per HPI GI Reports as per HPI and Reports no additional complaints Reports as per HPI Physical Exam Vital Signs: Last Vital Signs BP 114/68 09/17/25 09:33 BMI result Body Mass Index 27.3 Const General: cooperative, healthy appearing and comfortable Chest Chest palpation & inspection: normal inspection of the chest and normal palpation of entire chest wall Breast/axilla inspection: normal inspection of the breasts and normal inspection of the axillae Breast/axilla palpation: normal palpation of the breasts, normal palpation of the axillae and no axillary lymphadenopathy Resp Effort & Inspection: normal respiratory effort Auscultation: clear to auscultation bilaterally Percussion: percussion normal Cardio Palpation: normal PMI Rate: regular rate Rhythm: regular rhythm Heart sounds: no murmurs and no rubs Peripheral pulses: Peripheral pulses 2+ throughout GI Inspection: Yes normal to inspection Palpation (GI): Soft to palpation, nontender, no guarding, not rigid and No hepatosplenomegaly present Percussion: Yes normal to percussion Auscultation: normal bowel sounds Rectal Exam - Female: deferred General: Yes bladder normal to palpation External Female Exam: No lesion Speculum Exam - Vagina: normal appearance of the vagina, normal palpation, normal vaginal discharge and not erythematous Speculum Exam - Cervix: normal appearance of the cervix, normal palpation and Other cervical findings present (IUD string in place) Bimanual exam- vagina & uterus: normal bimanual exam, normal palpation, uterine size normal, bladder normal to palpation, consistency normal and normal palpation Bimanual Exam- Adnexa, other: normal adnexae, no masses and no tenderness Assessment & Plan Assessment & Plan (1) Well woman exam: Code(s): Z01.419 - Encounter for gynecological examination (general) (routine) without abnormal findings Category: Medical Plan: Cotesting done. Counseled the patient about the recommended dietary allowance of 1000 mg of Calcium & 600 IU of vitamin D. The patient was instructed to perform monthly self-breast exams and to schedule an annual exam in a year; All questions answered and the patient verbalized understanding. Instructed the patient to schedule annual exam in a year (2) Abnormal uterine bleeding (AUB): Comment: With ParaGard IUD Code(s): N93.9 - Abnormal uterine and vaginal bleeding, unspecified Category: Medical Plan: Co testing done, CBC, TSH, HCG, and pelvic ultrasound ordered. Discussed with the patient the different causes of abnormal bleeding including thyroid disorders, uterine and ovarian pathology, endometrial hyperplasia, carcinoma and other potential causes. Discussed with the patient the work up including CBC (to r/o anemia), TSH, pelvic Ultrasound, endometrial biopsy to r/o endometrial pathology. All questions answered and the patient verbalized understanding. Instructed the patient to schedule an appointment for an endometrial biopsy in 2 weeks. Orders: Orders HCG Quantitative Today N93.9 - Abnormal uterine and vaginal bleeding, unspecified TSH reflex Free T4 Today N93.9 - Abnormal uterine and vaginal bleeding, unspecified Complete Blood Count no Diff Today N93.9 - Abnormal uterine and vaginal bleeding, unspecified US pelvic and transvaginal Today N93.9 - Abnormal uterine and vaginal bleeding, unspecified Coding Level of Care Code Est Pt Level 3 (33192) Est Pt Prev Care 18-39y(65011) Diagnoses Well woman exam Z01.419 Abnormal uterine bleeding (AUB) N93.9
--- OUTSIDE RECORDS SUMMARY | 2025-09-17 10:19 | XMS_ITS | Encounter Summary ---
Author Organization [facility] Address [address] [place] [address] Phone Care Team Providers Care Supervisor Brake Repair Name Role Phone Carito Olivo MD Primary Care Provider [phone] Encounter Details Date Type Department Care Team (Late st Contact Info) Description 04/10/2013 Documentation [facility] Family Medicine [address] [place] [address] Family Medicine, Physician [address] [place], [place] [id number] Social History Tobacco Use Types Packs/Day Years [...] on filedocumented in this encounter Care Teams Supervisor Brake Repair Relationship Specialty Start Date End Date Carito Olivo MD [address] [place] [address] [place] [address] PCP - General 06/24/17 03/01/23 documented as of this encounter
--- OUTSIDE RECORDS SUMMARY | 2025-09-17 10:19 | XMS_ITS | Encounter Summary ---
Author Organization [facility] Address [address] [place] [address] Phone Care Team Providers Care Noxious Weeds And Pest Inspector Name Role Phone Carito Olivo MD Primary Care Provider [phone] Encounter Details Date Type Department Care Team (Late st Contact Info) Description 02/12/2013 Documentation [facility] Family Medicine [address] [place] [address] Family Medicine, Physician [address] [place], [place] [phone] Social History Tobacco Use Types Packs/Day Years [...] on filedocumented in this encounter Care Teams Noxious Weeds And Pest Inspector Relationship Specialty Start Date End Date Carito Olivo MD [address] [place] [address] [place] [address] PCP - General 06/24/17 03/01/23 documented as of this encounter
--- OUTSIDE RECORDS SUMMARY | 2025-09-17 10:19 | XMS_ITS | Clinical Summary ---
Author Organization [facility] Address [address] [place] [address] Phone Care Team Providers Care Skip Operator Name Role Phone Unavailable Primary Care Provider [...] 95 03/07/2017 12:00 AM EDT Temperature 35.8 C (96.5 F) 12/07/2016 12:00 AM EST Respiratory Rate - - Oxygen Saturation - [...] series) 06/20/1996 04/25/1996, 1995 Influenza Vaccines (#1) 2025 08/09/20 16, 08/09/2016, 09/09/2015, Additional history exists COVID-19 Vaccine ( season) 2025 DTaP,Tdap,and Td Vaccines (8 - Td or [...] complete this topic Procedures * Due to [place] state law, this organization might not be sharing sensitive test results. Procedure Name Priority Date/Time Associated Diagnosis Comments CHLAMYDIA AND GONORRHEA, AMPLIFIED Routine 12/08/2016 1:12 PM EST from Last 3 Months or Most Recently Relevant to Health Maintenance Results * Due to [place] state law, this organization might not be sharing sensitive test results. * Chlamydia and Gonorrhoea, Amplified (12/08/2016 1:12 PM EST) URINE GC AMP PROBE NEGATIVE [facility] Comment: No Neisseria Gonorrhoeae RNA detected in this patient's sample (REFERENCE RANGE/NORMAL VALUE: NOT DETECTED) NOTE: This test uses associate spa director-mediated amplification method to detect rRNA from C.Trachomatis [...] without risk of sexual abuse. Consult the [facility] if needed. Contact phone number . Therapeutic failure or success cannot be determined with the Aptima Combo2 assay since nucleic acid may persist following appropriate antimicrobial therapy. The Centers for Disease Control and Prevention (CDC) recommends confirmatory retesting using culture or a different nucleic acid amplification test when positive results occur, if indicated. Testing performed or reported by [facility], a Service of [facility], [facility] [place] [address] [place] [id number] Navneet Martin MD, PhD, Enamel Finisher URINE CHLAMYDIA AMP PROBE NEGATIVE [facility] Comment: No Chlamydia Trachomatis RNA detected in this patient's sample (REFERENCE RANGE/NORMAL VALUE: NOT DETECTED) 12/08/2016 1:12 PM EST Narrative [facility] - 12/08/2016 1:12 PM EST URINE CHLAMYDIA GC AMP PROBE us Carito Olivo MD LAB MICROBIOLOGY - GENERAL ORDERABLES Final Result [facility] [address] [place] [address], [place] from Last 3 Months or Most Recently Relevant to Health Maintenance
--- OUTSIDE RECORDS SUMMARY | 2025-09-17 10:19 | XMS_ITS | Encounter Summary ---
Author Organization [facility] Address [address] [place] [id number] Phone Care Team Providers Care Pet Food Deboner Name Role Phone Carito Olivo MD Primary Care Provider Encounter Details Date Type Department Care Team (Late st Contact Info) Description 03/01/2012 Documentation [facility] [place] Family Medicine [address] [place] [address] Family Medicine, Physician [address] [place], [place] [phone] Social History Tobacco Use Types Packs/Day Years [...] on filedocumented in this encounter Care Teams Pet Food Deboner Relationship Specialty Start Date End Date Carito Olivo MD [address] [place] [address] [place] [address] PCP - General 06/24/17 03/01/23 documented as of this encounter
--- OUTSIDE RECORDS SUMMARY | 2025-09-17 10:19 | XMS_ITS | Encounter Summary ---
Author Organization [facility] Address [address] [place] [phone] Phone Care Team Providers Care Insurance And Financial Services Agent Name Role Phone Carito Olivo MD Primary Care Provider Encounter Details Date Type Department Care Team (Late st Contact Info) Description 01/27/2017 Documentation [facility] [place] Family Medicine [address] [place] [address] Family Medicine, Physician [address] [place], [place] [phone] Social History Tobacco Use Types Packs/Day Years [...] on filedocumented in this encounter Care Teams Insurance And Financial Services Agent Relationship Specialty Start Date End Date Carito Olivo MD [address] [place] [address] [place] [address] PCP - General 06/24/17 03/01/23 documented as of this encounter
--- OUTSIDE RECORDS SUMMARY | 2025-09-17 10:19 | XMS_ITS | Encounter Summary ---
Author Organization [facility] Address [address] [place] [phone] Phone Care Team Providers Care Radiation Officer Name Role Phone Carito Olivo MD Primary Care Provider Encounter Details Date Type Department Care Team (Late st Contact Info) Description 04/12/2013 Documentation [facility] [place] [address] [place] [address] Family Medicine, Physician [address] [place], [place] [phone] Social History Tobacco Use Types Packs/Day Years [...] on filedocumented in this encounter Care Teams Radiation Officer Relationship Specialty Start Date End Date Carito Olivo MD [address] [place] [address] [place] [address] PCP - General 06/24/17 03/01/23 documented as of this encounter
== END 2025-09-17 10:22 | disposition home or self-care (01) ==
LOC: HO.HWS 09:23
PROVIDERS: PCP Physician Assistant Medical; Visit Provider Obstetrics & Gynecology
DX: Z01.419 Encounter for gynecological examination (general) (routine) without abnormal findings (principal); N93.9 Abnormal uterine and vaginal bleeding, unspecified
CPT/HCPCS: 99213; 99395; 99459

== ENCOUNTER 2025-09-17 09:23 | Outpatient (REF) | payer OTHER, SELFPAY ==
--- OUTSIDE RECORDS SUMMARY | 2025-09-17 11:25 | XMS_ITS | Clinical Summary ---
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 Name Role Phone Unavailable Primary Care Provider Unavailabl e Social History Tobacco Use Types Packs/Day Years Used Date Smoking Tobacco: Never Assessed Comments Unknown Sex and Gender Information Value Date Recorded Sex Assigned at Not on file Legal Sex Female 7:00 PM EST Gender Identity Not on file Sexual Orientation Not on file Plan of Treatment Health Maintenance Due Date Last Done Comments Hepatitis C Virus Screening 1995 HIV Screening 2008 DTaP/Tdap/Td Vaccines (1 - Tdap) 2014 Hepatitis B Vaccines (1 of 3 - 19+ 3-dose series) 2014 COVID-19 Vaccine (2023-2 5 season) 2025 HPV Vaccines (No Doses Required) Completed Pneumococcal Vaccine: Pediat pablo (0-5 Years) and At-Risk Patients (6 to 49 Years) Aged Out No longer eligible b ased on patient's age to complete this topic
== END 2025-09-17 09:24 | disposition home or self-care (01) ==
LOC: HO.LNP 09:23
PROVIDERS: Absent Provider Physician Assistant Medical; PCP Physician Assistant Medical; Visit Provider Obstetrics & Gynecology
DX: Z01.419 Encounter for gynecological examination (general) (routine) without abnormal findings (principal); N93.9 Abnormal uterine and vaginal bleeding, unspecified
CPT/HCPCS: 87626; 88175; 99212; 99395

== ENCOUNTER 2025-10-17 13:51 | Outpatient (AMB) | payer OTHER, SELFPAY ==
--- NOTE | 2025-10-17 14:01 | A.OFFPC_ITS ---
Vital Signs 10/17/25 14:03 Height 5 ft Weight 141 lb BMI 27.5 BP 118/74 Blood Pressure Location Rt brachial Position Sitting Pulse 86 Pulse Source Pulse Oximeter Temp 97.8 F Temp Source Temporal Artery Scan Pulse Oximetry (%) 98 Oxygen Delivery Method Room Air Intake Visit Reasons: Severe Back Pain Duck Farmer Required: No Accompanied by: Self / Same As Patient Allergies metronidazole (From Flagyl) Allergy (Severe, Verified 10/17/25 14:05) Hives , problems breathing Medication List - Last Reconciled 11/18/25 by FRANSISCO Pike albuterol sulfate 90 mcg/actuation (Ventolin HFA) 2 puffs inhalation Q4-6H PRN cyclobenzaprine 10 mg PO BEDTIME methylprednisolone (Medrol (Bonifacio)) PO PER PKG DIR for 6 days Tobacco use date assessed: 10/17/25 Dental Screening Dental Screen Date: 10/17/25 Did you have a dental visit in the last 12 months?: Yes Did you have a dental problem in the last 6 months where you did not have access to dental care?: No HPI HPI Comments History of Present Illness Details History of Present Illness The patient is a 30 year old female with history of asthma, MDD/Anxiety, history of kidney stones, medullary sponge kidney bilateral, and low vitamin D presenting with worsening back pain. The pain began after lifting groceries and is located in the left upper back. She describes the pain as an achy pain that has started to interfere with all her activities, making it difficult to sit or stand for extended periods. Associated symptoms include a shooting pain that travels up when she sits for too long. The patient reports that the pain is only relieved after a full night's rest. She has tried stretches and using a heating pad for relief. The patient was previously prescribed Baclofen but admits to not taking it due to fear of side effects. Health Maintenance - The patient has outstanding orders for lab tests, including a complete blood count, kidney function, liver function, and sugar levels, which she has not yet completed. Patient was informed and verbally consented to the use of an ambient scribe for clinic note documentation during this visit. [facility] Medical History (Updated 10/17/25 @ 14:28 by FRANSISCO Pike) Asthma Back pain Calculus of left ureter COVID-19 Decreased visual acuity Depression with anxiety Dizziness Gestational diabetes Health care maintenance Lipid screening Low vitamin D level Obesity (BMI 30.0-34.9) Renal mass, left Upper back pain on left side Vitamin D deficiency Surgical History History of tooth extraction Family History Father Cancer Seizures Mother Hypertension Kidney stones Paternal Grandmother Breast cancer Diabetes mellitus Paternal Grandfather Diabetes mellitus Maternal Aunt Hypertension Other Mental health disorder Social History Household Members: Children Housing: Apartment Do you presently have visiting nurse or other home services: No Alcohol intake: former Patient Tobacco Use Status: Never used Tobacco e-Cigarette/Vaping Use: Never Used Second Hand Smoke Exposure: No service: No Current occupational status: employed 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 Kiran Bingham, Mary Vang, Jake Melgar and colleagues, with an educational prasad from [employer] Review of Systems Narrative Review of Systems - Musculoskeletal: Reports worsening back pain described as an achy pain. - Reports shooting pain with prolonged sitting. - Neurological: Denies burning, numbness, and tingling. Physical exam (Primary Care) Vital Signs: Last Vital Signs Temp 97.8 F 10/17/25 14:03 Pulse 86 10/17/25 14:03 BP 118/74 10/17/25 14:03 Pulse Ox 98 10/17/25 14:03 Oxygen Delivery Method Room Air 10/17/25 14:03 BMI result Body Mass Index 27.5 GENERAL Well developed, Well nourished, in no apparent distress HEENT Head-Normocephalic Neck- Supple, No lymphadenopathy, thyroid WNL RESPIRATORY Normal I:E, Clear to auscultation CARDIOVASCULAR Regular, rate and rhythm, No murmurs or rubs MUSCULOSKELETAL Back-NormalROM, Tender in Thoracic with muscle tightness, Tender with motion, DTR 2+ symmetrical, Gait normal NEUROLOGICAL Gait normal PSYCHIATRIC Oriented to person, place and time Mood and affect WNL Appearance WNL Speech WNL Thought processes WNL Tobacco/Smoking Status: Tobacco use Status Tobacco use date assessed 10/17/25 10/17/25 14:13 Patient Tobacco Use Status Never used Tobacco 10/17/25 14:06 e-Cigarette/Vaping Use Never Used 10/17/25 14:06 Thrive Assessment: Date of Thrive Assessment Date Thrive assessed 07/30/25 10/17/25 14:06 Coding Level of Care Code Established Pt Est Pt Level 3 (09830) Established Pt Add On Problem Visit Only Patient Type Established Diagnoses Back pain M54.9 Time Spent (min) 25 Comment Time spent on H&P, Patient education and orders. Assessment & Plan Assessment & Plan (1) Back pain: Code(s): M54.9 - Dorsalgia, unspecified Category: Medical Plan: Will give Medrol Dospak and Cyclobenzaprine. Will refer for PT. Patient to follow up as needed if symptoms persist or worsen. Plan Plan Patient was informed and verbally consented to the use of an ambient scribe for clinic note documentation during this visit. 1. Back Pain The patient's back pain is assessed to be muscular in origin. The plan is to start a short course of steroids with a Medrol Dosepak to address inflammation. A stronger muscle relaxer, cyclobenzaprine, will be prescribed for use at bedtime only. A referral will be placed for physical therapy. The patient is encouraged to continue using a heating pad for symptomatic relief. Previously ordered lab tests will be checked and re-submitted if necessary, and the patient plans to have them done. Discussion Notes I discussed with the patient that her symptoms are consistent with a muscular issue rather than a bone problem. We reviewed the treatment plan, which includes a tapering course of steroids (Medrol Dosepak) to reduce inflammation, and I noted this is a safer option for her kidneys compared to NSAIDs. I addressed her concerns about muscle relaxer side effects by prescribing cyclobenzaprine to be taken only at bedtime, which should minimize daytime sleepiness. I explained the importance of physical therapy to resolve the muscle strain and informed her that a referral will be placed. I also confirmed that her outstanding lab orders should still be active and that she could proceed to the lab to have her blood drawn. Patient Instructions - Take the Medrol Dosepak as directed on the card; this involves taking a different number of pills each day, starting with six on day one and decreasing daily. - Take one pill of cyclobenzaprine at bedtime for muscle relaxation. - You can continue to use a heating pad on your back as needed. - Your prescriptions were sent to [facility]; please allow them at least an hour to get them ready. - Please go to the lab to get your blood tests done. - The physical therapy office should contact you within a week to schedule an appointment. If you do not hear from them, please give them a call. Orders: Orders PT Evaluation and Treatment 10/17/25 M54.9 - Dorsalgia, unspecified Medications: New methylprednisolone (Medrol (Bonifacio)) PO PER PKG DIR for 6 days 21 ea 0RF cyclobenzaprine 10 mg PO BEDTIME 30 tabs 1RF for muscle pain
[2025-10-17 14:03] VITALS: BP 118/74; PULSE 86; TEMP 36.6; O2SAT 98; BMI 27.5
== END 2025-10-17 15:36 | disposition home or self-care (01) ==
LOC: HO.HMCHD 13:51
PROVIDERS: PCP Physician Assistant Medical; Visit Provider Physician Assistant Medical
DX: M54.9 Dorsalgia, unspecified (principal)

== ENCOUNTER → 2025-10-17 13:51 | Outpatient (BNVA) | payer OTHER, SELFPAY | PROVIDERS: PCP Physician Assistant Medical; Visit Provider Physician Assistant Medical | DX: M54.9 Dorsalgia, unspecified (principal) | CPT/HCPCS: 99212 ==